=== PATIENT | female | born 1985 | race Caucasian/White ===

== ENCOUNTER → 2016-09-24 | Outpatient (REF) | payer OTHER | LOC: M LAB REF 16:51 | PROVIDERS: ATTEND Advanced Practice Midwife | DX: Z12.4 Encounter for screening for malignant neoplasm of cervix (principal); Z11.3 Encounter for screening for infections with a predominantly sexual mode of transmission | CPT/HCPCS: 87491; 87591; G0123 ==

== ENCOUNTER → 2017-01-10 | Outpatient (CLI) | payer OTHER ==
--- NOTE | 2017-01-10 16:04 | REP ---
Clinical: Abnormal thyroid function tests. Technique: Real time sears scale and color evaluation using linear and curved array transducers. Findings: The thyroid gland is diffusely heterogeneous without focal, discrete nodule, cyst or mass lesion. Right lobe measures 4.2 x 1.9 x 1.8 cm. Left lobe measures 4.4 x 1.7 x 1.9 cm. Isthmus measures 3.1 mm in width. Impression: Heterogeneous thyroid gland. No discrete abnormality. Signed by Chacorta Pope MD 01/10/2017 03:56 P
== END ==
LOC: M LRY 14:02
PROVIDERS: ATTEND Nurse Practitioner Family
DX: R94.6 Abnormal results of thyroid function studies (principal)

== ENCOUNTER → 2017-01-10 | Outpatient (CLI) | payer OTHER ==
[2017-01-10 18:16] LABS: ALBUMIN 3.8 GM/DL (3.2-5.2); ALBUMIN/GLOBULIN RATIO 1.23 (1.00-1.93); ALKALINE PHOSPHATASE 60 U/L (45-117); ALT/SGPT 23 U/L (12-78); ANION GAP 10 MEQ/L (8-16); AST/SGOT 10 U/L (15-37); BILIRUBIN,TOTAL 0.2 MG/DL (0.2-1.0); BLOOD UREA NITROGEN 9 MG/DL (7-18); CALCIUM LEVEL 9.2 MG/DL (8.5-10.1); CARBON DIOXIDE LEVEL 25 MEQ/L (21-32); CHLORIDE LEVEL 109 MEQ/L (98-107); CREATININE FOR GFR 0.96 MG/DL (0.55-1.02); FREE T4 0.69 NG/DL (0.76-1.46); GLOMERULAR FILTRATION RATE > 60.0 (>60); GLUCOSE, FASTING 85 MG/DL (70-105); MAGNESIUM LEVEL 2.1 MG/DL (1.8-2.4); POTASSIUM SERUM 4.3 MEQ/L (3.5-5.1); SODIUM LEVEL 144 MEQ/L (136-145); TOTAL PROTEIN 6.9 GM/DL (6.4-8.2)
[2017-01-11 10:04] LABS: THYROID PEROXIDASE ANTIBODY > 1300.0 U/ML (<60.0)
== END ==
LOC: M LRY 13:55
PROVIDERS: ATTEND Physician Assistant
DX: G25.0 Essential tremor (principal); R94.6 Abnormal results of thyroid function studies

== ENCOUNTER → 2017-01-20 | Outpatient (REF) | payer OTHER | LOC: M SFHCLERA 14:38 | PROVIDERS: ATTEND Physician Assistant | DX: R07.9 Chest pain, unspecified (principal); Z53.9 Procedure and treatment not carried out, unspecified reason ==

== ENCOUNTER → 2017-01-20 | Outpatient (CLI) | payer OTHER ==
--- NOTE | 2017-01-20 15:00 | REP ---
Clinical: Chest pain . Comparison: 11/02/2015 . Technique: PA and lateral. Findings: The mediastinum and cardiac silhouette are normal. The lung mark are clear and without acute consolidation, effusion, or pneumothorax. The skeletal structures are intact and normal. Impression: 1. No acute cardiopulmonary process. Signed by Chacorta Pope MD 01/20/2017 02:51 P
== END ==
LOC: M LRY 14:38
PROVIDERS: ATTEND Physician Assistant
DX: R07.9 Chest pain, unspecified (principal)

== ENCOUNTER → 2017-06-01 | Outpatient (CLI) | payer OTHER | LOC: M LRY 13:26 | DX: M79.672 Pain in left foot (principal) | CPT/HCPCS: 73630 ==

== ENCOUNTER → 2017-06-20 | Outpatient (CLI) | payer OTHER ==
[2017-06-20 20:28] LABS: BASO # 0.1 10^3/uL (0.0-0.2); BASO % 1.5 % (0.0-1.0); HEMATOCRIT 39.3 % (36.0-47.0); IMMATURE GRANULOCYTE % 0.2 % (0-3.0); LYMPH # 1.4 10^3/uL (1.5-4.5); LYMPH % 24.2 % (24.0-44.0); MEAN CORPUSCULAR HEMOGLOBIN 30.2 pg (27.0-33.0); MEAN CORPUSCULAR HGB CONC 33.1 g/dl (32.0-36.5); MEAN CORPUSCULAR VOLUME 91.2 fl (80.0-96.0); MONO # 0.4 10^3/uL (0.0-0.8); MONO % 6.7 % (0.0-5.0); NEUTROPHILS % 67.4 % (36.0-66.0); PLATELET COUNT, AUTOMATED 296 10^3/uL (150-450); RED BLOOD COUNT 4.31 10^6/uL (4.00-5.40); RED CELL DISTRIBUTION WIDTH 11.9 % (11.5-14.5)
[2017-06-20 20:46] LABS: ALBUMIN 3.7 GM/DL (3.2-5.2); ALBUMIN/GLOBULIN RATIO 1.23 (1.00-1.93); ALKALINE PHOSPHATASE 52 U/L (45-117); ALT/SGPT 20 U/L (12-78); ANION GAP 6 MEQ/L (8-16); AST/SGOT 10 U/L (7-37); BILIRUBIN,TOTAL 0.3 MG/DL (0.2-1.0); BLOOD UREA NITROGEN 8 MG/DL (7-18); CALCIUM LEVEL 8.8 MG/DL (8.5-10.1); CARBON DIOXIDE LEVEL 27 MEQ/L (21-32); CHLORIDE LEVEL 110 MEQ/L (98-107); CREATININE FOR GFR 0.86 MG/DL (0.55-1.30); GLOMERULAR FILTRATION RATE > 60.0 (>60); GLUCOSE, FASTING 93 MG/DL (70-100); POTASSIUM SERUM 4.4 MEQ/L (3.5-5.1); SODIUM LEVEL 143 MEQ/L (136-145); TOTAL PROTEIN 6.7 GM/DL (6.4-8.2)
[2017-06-20 20:48] LABS: LITHIUM LEVEL 0.76 MEQ/L (0.60-1.20)
== END ==
LOC: M LRY 15:46
DX: F31.64 Bipolar disorder, current episode mixed, severe, with psychotic features (principal)
CPT/HCPCS: 80178

== ENCOUNTER → 2017-08-22 | Outpatient (REF) | payer OTHER | LOC: M SFHCLERA 13:54 | DX: J02.9 Acute pharyngitis, unspecified (principal) ==

== ENCOUNTER → 2017-11-18 | Outpatient (REF) | payer OTHER ==
[2017-11-18 19:13] LABS: IRON (FE) 74 UG/DL (50-170)
[2017-11-18 19:13] LABS: BASO # 0.1 10^3/uL (0.0-0.2); BASO % 0.7 % (0.0-1.0); FERRITIN 10 NG/ML (8-252); HEMATOCRIT 41.8 % (36.0-47.0); HEMOGLOBIN 13.7 g/dl (12.0-15.5); IMMATURE GRANULOCYTE % 0.6 % (0-3.0); LYMPH # 1.5 10^3/uL (1.5-4.5); LYMPH % 21.6 % (24.0-44.0); MEAN CORPUSCULAR HEMOGLOBIN 30.6 pg (27.0-33.0); MEAN CORPUSCULAR HGB CONC 32.8 g/dl (32.0-36.5); MEAN CORPUSCULAR VOLUME 93.5 fl (80.0-96.0); MONO # 0.4 10^3/uL (0.0-0.8); MONO % 4.9 % (0.0-5.0); NEUTROPHILS # 5.2 10^3/uL (1.8-7.7); NEUTROPHILS % 72.2 % (36.0-66.0); PLATELET COUNT, AUTOMATED 325 10^3/uL (150-450); RED BLOOD COUNT 4.47 10^6/uL (4.00-5.40); RED CELL DISTRIBUTION WIDTH 12.2 % (11.5-14.5); THYROID STIMULATING HORMONE 0.532 uIU/ML (0.358-3.740); WHITE BLOOD COUNT 7.1 10^3/uL (4.0-10.0)
[2017-11-21 00:20] LABS: TISSUE TRANSGLUTAMINASE IgA <2 U/mL (0-3)
== END ==
LOC: M LAB REF 17:58
DX: K58.2 Mixed irritable bowel syndrome (principal)

== ENCOUNTER → 2018-04-26 | Outpatient (REF) | payer OTHER | LOC: M SFHCLERA 11:14 | PROVIDERS: ATTEND Physician Assistant | DX: R53.81 Other malaise (principal) ==

== ENCOUNTER → 2018-05-19 | Outpatient (CLI) | payer OTHER ==
[2018-05-19 21:11] LABS: BASO # 0.1 10^3/uL (0.0-0.2); BASO % 0.8 % (0.0-1.0); HEMOGLOBIN 13.9 g/dl (12.0-15.5); LYMPH # 1.8 10^3/uL (1.5-4.5); LYMPH % 22.4 % (24.0-44.0); MEAN CORPUSCULAR HEMOGLOBIN 30.2 pg (27.0-33.0); MEAN CORPUSCULAR HGB CONC 33.1 g/dl (32.0-36.5); MEAN CORPUSCULAR VOLUME 91.3 fl (80.0-96.0); MONO # 0.5 10^3/uL (0.0-0.8); MONO % 6.5 % (0.0-5.0); NEUTROPHILS # 5.6 10^3/uL (1.8-7.7); NEUTROPHILS % 69.8 % (36.0-66.0); PLATELET COUNT, AUTOMATED 325 10^3/uL (150-450)
[2018-05-19 21:26] LABS: ALBUMIN 3.9 GM/DL (3.2-5.2); ALT/SGPT 23 U/L (12-78); BILIRUBIN,TOTAL 0.4 MG/DL (0.2-1.0); BLOOD UREA NITROGEN 8 MG/DL (7-18); CALCIUM LEVEL 9.1 MG/DL (8.5-10.1); CARBON DIOXIDE LEVEL 29 MEQ/L (21-32); CHLORIDE LEVEL 105 MEQ/L (98-107); CHOLESTEROL LEVEL 179 MG/DL (<200); CHOLESTEROL RISK RATIO 3.977 (<5); CREATININE FOR GFR 0.84 MG/DL (0.55-1.30); GLOMERULAR FILTRATION RATE > 60.0 (>60); GLUCOSE, FASTING 105 MG/DL (70-100); HDL CHOLESTEROL 45 MG/DL (>40); LDL CHOLESTEROL 100 MG/DL (<100); LITHIUM LEVEL 0.38 MEQ/L (0.60-1.20); NON-HDL-C 134 MG/DL; POTASSIUM SERUM 3.9 MEQ/L (3.5-5.1); SODIUM LEVEL 142 MEQ/L (136-145); TOTAL PROTEIN 6.9 GM/DL (6.4-8.2); TRIGLYCERIDES LEVEL 168 MG/DL (<150)
[2018-05-20 19:27] LABS: HEMOGLOBIN A1c 4.6 %
== END ==
LOC: M LRY 17:22
PROVIDERS: ATTEND Physician Assistant
DX: F31.78 Bipolar disorder, in full remission, most recent episode mixed (principal)

== ENCOUNTER → 2018-06-16 | Outpatient (REF) | payer OTHER | LOC: M SFHCLERA 17:01 | PROVIDERS: ATTEND Nurse Practitioner Family | DX: J02.9 Acute pharyngitis, unspecified (principal) ==

== ENCOUNTER → 2019-02-13 | Outpatient (REF) | payer OTHER ==
[2019-02-13 17:40] LABS: BASO % 0.4 % (0.0-1.0); HEMATOCRIT 41.5 % (36.0-47.0); HEMOGLOBIN 13.6 g/dl (12.0-15.5); LYMPH # 1.3 10^3/uL (1.5-5.0); LYMPH % 18.9 % (24.0-44.0); MEAN CORPUSCULAR HEMOGLOBIN 30.8 pg (27.0-33.0); MEAN CORPUSCULAR HGB CONC 32.8 g/dl (32.0-36.5); MEAN CORPUSCULAR VOLUME 93.9 fl (80.0-96.0); MONO # 0.4 10^3/uL (0.0-0.8); MONO % 5.6 % (0.0-5.0); NEUTROPHILS # 5.2 10^3/uL (1.5-8.5); NEUTROPHILS % 74.7 % (36.0-66.0); PLATELET COUNT, AUTOMATED 243 10^3/uL (150-450); RED BLOOD COUNT 4.42 10^6/uL (4.00-5.40); WHITE BLOOD COUNT 6.9 10^3/uL (4.0-10.0)
[2019-02-13 17:42] LABS: ALBUMIN 3.8 GM/DL (3.2-5.2); ALT/SGPT 22 U/L (12-78); BILIRUBIN,TOTAL 0.5 MG/DL (0.2-1.0); BLOOD UREA NITROGEN 9 MG/DL (7-18); CALCIUM LEVEL 9.3 MG/DL (8.5-10.1); CARBON DIOXIDE LEVEL 27 MEQ/L (21-32); CHLORIDE LEVEL 109 MEQ/L (98-107); CHOLESTEROL LEVEL 169 MG/DL (<200); CREATININE FOR GFR 0.86 MG/DL (0.55-1.30); FREE T4 1.34 NG/DL (0.76-1.46); GLOMERULAR FILTRATION RATE > 60.0 (>60); GLUCOSE, FASTING 88 MG/DL (70-100); HDL CHOLESTEROL 43 MG/DL (>40); LDL CHOLESTEROL 106 MG/DL (<100); NON-HDL-C 126 MG/DL; POTASSIUM SERUM 4.3 MEQ/L (3.5-5.1); SODIUM LEVEL 142 MEQ/L (136-145); THYROID STIMULATING HORMONE 0.026 uIU/ML (0.358-3.740); TRIGLYCERIDES LEVEL 98 MG/DL (<150)
[2019-02-13 18:10] LABS: HEMOGLOBIN A1c 4.7 %
== END ==
LOC: M LAB REF 16:44
PROVIDERS: ATTEND Nurse Practitioner Family
DX: Z13.9 Encounter for screening, unspecified (principal)

== ENCOUNTER → 2019-04-19 | Outpatient (CLI) | payer OTHER ==
[2019-04-19 19:46] LABS: HCG, SERUM QUALITATIVE NEGATIVE (NEGATIVE)
== END ==
LOC: M LAB 17:55
PROVIDERS: ATTEND Internal Medicine Endocrinology, Diabetes & Metabolism
DX: E05.00 Thyrotoxicosis with diffuse goiter without thyrotoxic crisis or storm (principal)

== ENCOUNTER → 2019-04-20 | Outpatient (CLI) | payer OTHER | LOC: M RAD 09:50 | PROVIDERS: ATTEND Internal Medicine Endocrinology, Diabetes & Metabolism | DX: E05.00 Thyrotoxicosis with diffuse goiter without thyrotoxic crisis or storm (principal) | CPT/HCPCS: 79005; A9517 ==

== ENCOUNTER → 2019-05-08 | Outpatient (CLI) | payer OTHER ==
[2019-05-08 20:44] LABS: FREE T4 2.83 NG/DL (0.76-1.46); THYROID STIMULATING HORMONE < 0.005 uIU/ML (0.358-3.740)
== END ==
LOC: M LRY 16:40
PROVIDERS: ATTEND Internal Medicine Endocrinology, Diabetes & Metabolism
DX: E05.00 Thyrotoxicosis with diffuse goiter without thyrotoxic crisis or storm (principal)

== ENCOUNTER → 2019-06-15 | Outpatient (CLI) | payer OTHER ==
[2019-06-15 20:44] LABS: FREE T4 0.56 NG/DL (0.76-1.46); THYROID STIMULATING HORMONE 9.1 uIU/ML (0.358-3.740)
== END ==
LOC: M LRY 16:01
PROVIDERS: ATTEND Internal Medicine Endocrinology, Diabetes & Metabolism
DX: E05.00 Thyrotoxicosis with diffuse goiter without thyrotoxic crisis or storm (principal)

== ENCOUNTER → 2019-07-08 | Outpatient (REF) | payer OTHER, MEDICAID ==
[2019-07-08 13:24] LABS: BASO # 0.1 10^3/uL (0.0-0.2); HEMATOCRIT 43.7 % (36.0-47.0); HEMOGLOBIN 14.4 g/dl (12.0-15.5); LYMPH % 31.7 % (24.0-44.0); MEAN CORPUSCULAR HEMOGLOBIN 30.1 pg (27.0-33.0); MEAN CORPUSCULAR VOLUME 91.4 fl (80.0-96.0); MONO # 0.4 10^3/uL (0.0-0.8); MONO % 6.7 % (0.0-5.0); NEUTROPHILS # 3.7 10^3/uL (1.5-8.5); NEUTROPHILS % 60.1 % (36.0-66.0); PLATELET COUNT, AUTOMATED 264 10^3/uL (150-450); RED BLOOD COUNT 4.78 10^6/uL (4.00-5.40); WHITE BLOOD COUNT 6.2 10^3/uL (4.0-10.0)
[2019-07-08 13:51] LABS: ALBUMIN 4.2 GM/DL (3.2-5.2); ALT/SGPT 24 U/L (12-78); BILIRUBIN,TOTAL 0.5 MG/DL (0.2-1.0); BLOOD UREA NITROGEN 12 MG/DL (7-18); CALCIUM LEVEL 9.7 MG/DL (8.5-10.1); CARBON DIOXIDE LEVEL 27 MEQ/L (21-32); CHLORIDE LEVEL 108 MEQ/L (98-107); CREATININE FOR GFR 1.02 MG/DL (0.55-1.30); GLOMERULAR FILTRATION RATE > 60.0 (>60); GLUCOSE, FASTING 86 MG/DL (70-100); POTASSIUM SERUM 4.3 MEQ/L (3.5-5.1); SODIUM LEVEL 139 MEQ/L (136-145); TOTAL PROTEIN 7.5 GM/DL (6.4-8.2)
== END ==
LOC: M LAB REF 12:28
PROVIDERS: ATTEND Nurse Practitioner Family
DX: L70.0 Acne vulgaris (principal); Z13.9 Encounter for screening, unspecified

== ENCOUNTER → 2019-08-18 | Outpatient (CLI) | payer OTHER, MEDICAID ==
[2019-08-18 17:46] LABS: FREE T4 1.58 NG/DL (0.76-1.46); THYROID STIMULATING HORMONE 0.041 uIU/ML (0.358-3.740)
== END ==
LOC: M LRY 13:39
PROVIDERS: ATTEND Nurse Practitioner Family
DX: E89.0 Postprocedural hypothyroidism (principal)

== ENCOUNTER → 2019-10-21 | Outpatient (CLI) | payer OTHER, MEDICAID ==
[~2019-10-21] MED LIST: KURV0.15 PO; LITH300C PO; MIRA3350 PO; SAPH1SUB9 SL; SPIR50TA4 PO
[2019-10-21 18:36] LABS: BASO % 0.6 % (0.0-1.0); HEMATOCRIT 41.2 % (36.0-47.0); HEMOGLOBIN 14.1 g/dl (12.0-15.5); LYMPH # 1.4 10^3/uL (1.5-5.0); LYMPH % 21.2 % (24.0-44.0); MEAN CORPUSCULAR HEMOGLOBIN 31.6 pg (27.0-33.0); MEAN CORPUSCULAR HGB CONC 34.2 g/dl (32.0-36.5); MEAN CORPUSCULAR VOLUME 92.4 fl (80.0-96.0); MONO # 0.4 10^3/uL (0.0-0.8); MONO % 5.5 % (0.0-5.0); NEUTROPHILS # 4.7 10^3/uL (1.5-8.5); NEUTROPHILS % 72.1 % (36.0-66.0); PLATELET COUNT, AUTOMATED 291 10^3/uL (150-450); RED BLOOD COUNT 4.46 10^6/uL (4.00-5.40); WHITE BLOOD COUNT 6.5 10^3/uL (4.0-10.0)
[2019-10-21 18:48] LABS: ALBUMIN 3.7 GM/DL (3.2-5.2); ALT/SGPT 33 U/L (12-78); BILIRUBIN,TOTAL 0.6 MG/DL (0.2-1.0); BLOOD UREA NITROGEN 10 MG/DL (7-18); CARBON DIOXIDE LEVEL 26 MEQ/L (21-32); CHLORIDE LEVEL 109 MEQ/L (98-107); CHOLESTEROL LEVEL 169 MG/DL (<200); CREATININE FOR GFR 0.88 MG/DL (0.55-1.30); GLOMERULAR FILTRATION RATE > 60.0 (>60); GLUCOSE, FASTING 84 MG/DL (70-100); HDL CHOLESTEROL 44 MG/DL (>40); LDL CHOLESTEROL 102 MG/DL (<100); LITHIUM LEVEL 0.61 MEQ/L (0.60-1.20); NON-HDL-C 125 MG/DL; POTASSIUM SERUM 4.4 MEQ/L (3.5-5.1); SODIUM LEVEL 140 MEQ/L (136-145); TOTAL PROTEIN 6.7 GM/DL (6.4-8.2); TRIGLYCERIDES LEVEL 113 MG/DL (<150)
[2019-10-21 20:12] LABS: HEMOGLOBIN A1c 4.9 %
== END ==
LOC: M LRY 15:17
PROVIDERS: ATTEND Physician Assistant
DX: F31.9 Bipolar disorder, unspecified (principal)

== ENCOUNTER → 2019-10-21 | Outpatient (CLI) | payer OTHER, MEDICAID ==
[2019-10-21 18:45] LABS: FREE T4 1.33 NG/DL (0.76-1.46); THYROID STIMULATING HORMONE 0.137 uIU/ML (0.358-3.740)
== END ==
LOC: M LRY 15:14
PROVIDERS: ATTEND Nurse Practitioner Family
DX: E89.0 Postprocedural hypothyroidism (principal)

== ENCOUNTER → 2019-12-31 | Outpatient (CLI) | payer OTHER, MEDICAID ==
[2020-01-01 20:09] LABS: FREE T4 1.28 NG/DL (0.76-1.46); THYROID STIMULATING HORMONE 0.118 uIU/ML (0.358-3.740)
== END ==
LOC: M LRY 15:24
PROVIDERS: ATTEND Nurse Practitioner Family
DX: E89.0 Postprocedural hypothyroidism (principal)

== ENCOUNTER → 2020-03-30 | Outpatient (CLI) | payer OTHER ==
[2020-03-30 16:53] LABS: FREE T4 1.14 NG/DL (0.76-1.46); THYROID STIMULATING HORMONE 2.49 uIU/ML (0.358-3.740)
== END ==
LOC: M WUC 13:41
PROVIDERS: ATTEND Nurse Practitioner Family
DX: E89.0 Postprocedural hypothyroidism (principal)

== ENCOUNTER 2020-05-21 16:25 | Emergency (ER) | payer OTHER ==
[~2020-05-21] VITALS: Ht 165.1 cm; Wt 62.5 kg
[2020-05-21] MEDS ORDERED: KURV0.15 PO (16:46)
[2020-05-21] MEDS ORDERED: SPIR50TA4 PO (16:46)
[2020-05-21] MEDS ORDERED: LITH300C PO (16:46)
[2020-05-21] MEDS ORDERED: SAPH1SUB9 SL (16:46)
--- OUTSIDE RECORDS SUMMARY | 2020-05-21 17:07 | CCD | Continuity of Care Document ---
Author Author Amy KNOWLES [facility] Organization Unknown Address [facility] [address] [place] [address] Phone [phone] Care Team Providers Care Fancy Wire Drawer Name Role Phone [facility] AUTM AUTM Unavailable Problems Active Problems Provider Date Mixed bipolar affective disorder, in full remission Jsa Patricio LCSW Onset: 11/20/2017 Family coping: potential for growth Jas Patricio LCSW Ons et: 04/18/2018 Taking medication Zach Porter PA-C Onset: 06/09/2019 Bipolar disorder Zach Porter PA-C Onset: 06/09/2019 Social History Type Date Description Comments Sex Unknown Allergies, Adverse Reactions, Alerts Active Allergies Reaction Severity Comments Date NKDA 02/23/2019 Environmental SNEEZING, RUNNY NOSE 2016 Vinegar Nausea and Vomiting Moderate 09/04/19 17 Tobacco Smoke Anaphylaxis Severe 09/03/2016 Medications Active Medications SIG Qnty Indications Ordering Provide r Date Saphris 2.5mg Tablets Sub place 1 under the tongue every day at bedtime . do not exceed 1 per 24 hours 30tabs F31.78 Brady Canada MD 11/26/2017 [place] Carbonate 300mg Capsules 2 caps by mouth at bedtime 60caps F31.81 Brady Canada MD 7 [place] 0.15-30mg-mcg Tablets Unknown Claritin 10mg Tablets Unknown Metoprolol Tartrate 25mg Tablets Take 1 Tablet By Mouth Twice Daily . DO Not Exceed 2 Per 24 Hours Unknown Immunizations Description No Information Available Vital Signs Date Vital Result Comment 02/23/2019 1:58pm BP Systolic Sitting 125 mmHg BP Diastolic Sitting 81 mmHg Heart Rate 84 /min Body Temperature 98.9 F Oral Respiratory Rate 16 /min O2 % BldC Oximetry 100 % Weight 139.50 lb Weight 63.277 kg Height 65 inches 5'5" BMI (Body Mass Index) 23.2 kg/m2 BSA (Body Surface Area) 1.70 m2 05/14/2018 3:34pm BP Systolic Sitting 124 mmHg BP Diastolic Sitting 80 mmHg Heart Rate 90 /min Body Temperature 98.3 F Oral Respiratory Rate 16 /min O2 % BldC Oximetry 98 % Weight 150.38 lb Weight 68.210 kg Height 65 inches 5'5" BMI (Body Mass Index) 25.0 kg/m2 BSA (Body Surface Area) 1.75 m2 Results Description No Information Available Procedures Description No Information Available Medical Devices Description No Information Available Encounters Description No Information Available Assessments Date Code Description Provider 05/02/2020 F31.9 Bipolar disorder, unspecified Th ea Jitendra, [facility] 04/22/2020 F31.9 Bipolar disorder, unspecified Th ea Jitendra, [facility] 04/08/2020 F31.9 Bipolar disorder, unspecified Th ea Jitendra, [facility] 04/08/2020 F31.9 Bipolar disorder, unspecified Ca olegario Porter PA-C 03/25/2020 F31.9 Bipolar disorder, unspecified Th ea Jitendra, [facility] 03/25/2020 Z79.899 Other jet handler (current) drug t herapy Iesha Jitendra, [facility] 03/11/2020 F31.9 Bipolar disorder, unspecified Th ea Jitendra, [facility] 03/11/2020 Z79.899 Other fci (current) drug t herapy Iesha Jitendra, [facility] 02/26/2020 F31.9 Bipolar disorder, unspecified Th ea Jitendra, [facility] 02/26/2020 Z79.899 Other jet handler (current) drug t herapy Iesha Jitendra, [facility] 02/05/2020 F31.9 Bipolar disorder, unspecified Th ea Jitendra, [facility] 02/05/2020 Z79.899 Other fci (current) drug t herapy Iesha Jitendra, [facility] 01/22/2020 F31.9 Bipolar disorder, unspecified Th ea Jitendra, [facility] 01/22/2020 Z79.899 Other fci (current) drug t herapy Iesha Jitendra, [facility] 01/07/2020 F31.9 Bipolar disorder, unspecified Th ea Jitendra, [facility] 01/07/2020 F31.9 Bipolar disorder, unspecified Ca olegario Porter PA-C 01/07/2020 Z79.899 Other jet handler (current) drug t herapy Iesha Jitendra, [facility] 01/07/2020 Z79.899 Other jet handler (current) drug t herapy Zach Porter PA-C 12/24/2019 F31.9 Bipolar disorder, unspecified Th ea Jitendra, [facility] 12/24/2019 Z79.899 Other fci (current) drug t herapy Iesha Jitendra, [facility] 12/10/2019 F31.9 Bipolar disorder, unspecified Th ea Jitendra, [facility] 12/10/2019 Z79.899 Other jet handler (current) drug t herapy Iesha Jitendra, [facility] 11/26/2019 F31.9 Bipolar disorder, unspecified Th ea Jitendra, [facility] 11/26/2019 Z79.899 Other fci (current) drug t herapy BRENDAN Wells Plan of Treatment Future Appointment(s):* 07/08/2020 2:00 pm - BRENDAN Wells at [facility] * 06/24/2020 2:00 pm - BRENDAN Wells at [facility] * 06/06/2020 12:40 pm - Zach Porter PA-C at [facility] * 06/06/2020 12:00 pm - BRENDAN Wells at [facility] Functional Status Description No Information Available Mental Status Description No Information Available Referrals Description No Information Available
--- OUTSIDE RECORDS SUMMARY | 2020-05-21 17:07 | CCD ---
Continuity of Care Document (CCD) Created on: 04/08/2020 Amy Hammer External Reference #: [id number] : [id number] Sex: Female Author Author Amy PORTER PA-C Organization Unknown Address [facility] [address] [place] [address] Phone [phone] Care Team Providers Care Valve Steamer Name Role Phone [facility] AUTM AUTM Unavailable Problems Active Problems Provider Date Mixed bipolar affective disorder, in full remission Jas Patricio LCSW Onset: 11/20/2017 Family coping: potential [...] hours 30tabs F31.78 Brady Canada MD 11/26/2017 [place] Carbonate 300mg Capsules 2 caps by mouth [...] BSA (Body Surface Area) 1.75 m2 Results Test Acquired Date Facility Test Result H/L Range Note Hgba1c 10/21/2019 [facility] Hemoglobin A1c 4.9 % Normal 1 Estimated Average Glucose 94 mg/dL Normal 60-110 Cve Panel 10/21/2019 [facility] Triglycerides Level 113 mg/dL Normal <150 Cholesterol Level 169 mg/dL Normal <200 HDL Cholesterol 44 mg/dL Normal >40 LDL Cholesterol 102 mg/dL High <100 Non-HDL-C 125 mg/dL Normal Cholesterol Risk Ratio 3.840 Normal <5 Laboratory test finding 10/21/2019 [facility] [place] Level 0.61 mEq/L Normal 0.60-1.20 Thyroid Stimulating Hormone 0.140 uIU/ML Low 0.358-3.740 Comprehensive Metabolic Profil 10/21/2019 [facility] Glucose, Fasting 84 mg/dL Normal 70-100 Blood Urea Nitrogen 10 mg/dL Normal 7-18 Creatinine For GFR 0.88 mg/dL Normal 0.55-1.30 Glomerular Filtration Rate > 60.0 Normal >60 2 Sodium Level 140 mEq/L Normal 136-145 Potassium Serum 4.4 mEq/L Normal 3.5-5.1 Chloride Level 109 mEq/L High 98-107 Carbon Dioxide Level 26 mEq/L Normal 21-32 Anion Gap 5 mEq/L Low 8-16 Calcium Level 9.0 mg/dL Normal 8.5-10.1 Ast/Sgot 15 U/L Normal 7-37 Alt/SGPT 33 U/L Normal 12-78 Alkaline Phosphatase 50 U/L Normal 45-117 Bilirubin,Total 0.6 mg/dL Normal 0.2-1.0 Total Protein 6.7 GM/DL Normal 6.4-8.2 Albumin 3.7 GM/DL Normal 3.2-5.2 Albumin/Globulin Ratio 1.2 Normal 1.2-2.2 1 REFERENCE RANGES: 4.5-5.6% NORMAL 5.7-6.4% SUGGESTS IMPAIRED GLUCOSE META BOLISM >= 6.5% ABNORMAL 2 Units are mL/min/1.73 m2 Chronic Kidney Disease Staging per NKF: Stage I & II GFR >=60 Normal to Mildly Decreased Stage III GFR 30-59 Moderately Decreased Stage IV GFR 15-29 Severely Decreased Stage V GFR <15 Very Little GFR Left ESRD GFR <15 on [employer]OMER [employer]OV[employer] SUPERVISOR Procedures Description No Information Available Medical Devices Description No Information Available Encounters Type Date Location Provider Dx Diagnosis Office Visit 04/08/2020 1:00p [facility] Zach Porter PA-C F31.9 Bipolar disorder, unspecified Assessments Date Code Description Provider 04/08/2020 F31.9 Bipolar disorder, unspecified Brandie Porter PA-C 03/25/2020 F31.9 Bipolar disorder, unspecified Th ea Jitendra, [facility] 03/25/2020 Z79.899 Other m[facility] (current) drug t herapy Iesha Jitendra, [facility] 03/11/2020 F31.9 Bipolar disorder, unspecified Th ea Jitendra, [facility] 03/11/2020 Z79.899 Other mcc (current) drug t herapy Iesha Jitendra, [facility] 02/26/2020 F31.9 Bipolar disorder, unspecified Th ea Jitendra, [facility] 02/26/2020 Z79.899 Other buttermilk drier operator (current) drug t herapy Iesha Jitendra, [facility] 02/05/2020 F31.9 Bipolar disorder, unspecified Th ea Jitendra, [facility] 02/05/2020 Z79.899 Other mcc (current) drug t herapy Iesha Jitendra, [facility] 01/22/2020 F31.9 Bipolar disorder, unspecified Th ea Jitendra, [facility] 01/22/2020 Z79.899 Other buttermilk drier operator (current) drug t herapy Iesha Jitendra, [facility] 01/07/2020 F31.9 Bipolar disorder, unspecified Th ea Jitendra, [facility] 01/07/2020 F31.9 Bipolar disorder, unspecified Ca olegario Porter PA-C 01/07/2020 Z79.899 Other buttermilk drier operator (current) drug t herapy Iesha Jitendra, [facility] 01/07/2020 Z79.899 Other mcc (current) drug t herapy Zach Porter PA-C 12/24/2019 F31.9 Bipolar disorder, unspecified Th ea Jitendra, [facility] 12/24/2019 Z79.899 Other buttermilk drier operator (current) drug t herapy Iesha Jitendra, [facility] 12/10/2019 F31.9 Bipolar disorder, unspecified Th ea Jitendra, [facility] 12/10/2019 Z79.899 Other buttermilk drier operator (current) drug t herapy Iesha Jitendra, [facility] 11/26/2019 F31.9 Bipolar disorder, unspecified Th ea Jitendra, [facility] 11/26/2019 Z79.899 Other buttermilk drier operator (current) drug t herapy Iesha Jitendra, [facility] 11/09/2019 F31.9 Bipolar disorder, unspecified Th ea Jitendra, [facility] 11/09/2019 Z79.899 Other buttermilk drier operator (current) drug t herapy Iesha Jitendra, [facility] 10/26/2019 F31.9 Bipolar disorder, unspecified Th ea Jitendra, [facility] 10/26/2019 Z79.899 Other buttermilk drier operator (current) drug t herapy Iesha Jitendra, [facility] 10/15/2019 F31.9 Bipolar disorder, unspecified Th ea Jitendra, [facility] 10/15/2019 Z79.899 Other mcc (current) drug t herapy BRENDAN Wells Plan of Treatment Future Appointment(s):* 06/06/2020 1:40 pm - Zach Porter PA-C at [facility] * 04/22/2020 2:00 pm - BRENDAN Wells at [facility] Functional Status Description No Information Available Mental Status Description No Information Available Referrals Description No Information Available
--- OUTSIDE RECORDS SUMMARY | 2020-05-21 17:07 | CCD | Continuity of Care Document ---
Author Author Amy KNOWLES [facility] Organization Unknown Address [facility] [address] [place] [address] Phone [phone] Care Team Providers Care Tire Groover Name Role Phone [facility] AUTM AUTM Unavailable Problems Active Problems Provider [...] hours 30tabs F31.78 Brady Canada MD 11/26/2017 [facility] Carbonate 300mg Capsules 2 caps by mouth [...] Information Available Assessments Date Code Description Provider 04/08/2020 F31.9 Bipolar disorder, unspecified Th ea Jitendra, [facility] 04/08/2020 F31.9 Bipolar disorder, unspecified Brandie Porter PA-C 03/25/2020 F31.9 Bipolar disorder, unspecified Th ea Jitendra, [facility] 03/25/2020 Z79.899 Other termination clerk (current) drug t herapy Iesha Jitendra, [facility] 03/11/2020 F31.9 Bipolar disorder, unspecified Th ea Jitendra, [facility] 03/11/2020 Z79.899 Other skilled nursing (current) drug t herapy Iesha Jitendra, [facility] 02/26/2020 F31.9 Bipolar disorder, unspecified Th ea Jitendra, [facility] 02/26/2020 Z79.899 Other skilled nursing (current) drug t herapy Iesha Jitendra, [facility] 02/05/2020 F31.9 Bipolar disorder, unspecified Th ea Jitendra, [facility] 02/05/2020 Z79.899 Other skilled nursing (current) drug t herapy Iesha Jitendra, [facility] 01/22/2020 F31.9 Bipolar disorder, unspecified Th ea Jitendra, [facility] 01/22/2020 Z79.899 Other skilled nursing (current) drug t herapy Iesha Jitendra, [facility] 01/07/2020 F31.9 Bipolar disorder, unspecified Th ea Jitendra, [facility] 01/07/2020 F31.9 Bipolar disorder, unspecified Ca olegario Porter PA-C 01/07/2020 Z79.899 Other skilled nursing (current) drug t herapy Iesha Jitendra, [facility] 01/07/2020 Z79.899 Other skilled nursing (current) drug t herapy Zach Porter PA-C 12/24/2019 F31.9 Bipolar disorder, unspecified Th ea Jitendra, [facility] 12/24/2019 Z79.899 Other skilled nursing (current) drug t herapy Iesha Jitendra, [facility] 12/10/2019 F31.9 Bipolar disorder, unspecified Th ea Jitendra, [facility] 12/10/2019 Z79.899 Other skilled nursing (current) drug t herapy Iesha Jitendra, [facility] 11/26/2019 F31.9 Bipolar disorder, unspecified Th ea Jitendra, [facility] 11/26/2019 Z79.899 Other termination clerk (current) drug t herapy Iesha Jitendra, [facility] 11/09/2019 F31.9 Bipolar disorder, unspecified Th ea Jitendra, [facility] 11/09/2019 Z79.899 Other skilled nursing (current) drug t herapy Iesha Jitendra, [facility] 10/26/2019 F31.9 Bipolar disorder, unspecified Th ea Jitendra, [facility] 10/26/2019 Z79.899 Other skilled nursing (current) drug t herapy BRENDAN Wells Plan of Treatment Future Appointment(s):* 06/06/2020 12:40 pm - Zach Porter PA-C at [facility] * 06/06/2020 12:00 pm - BRENDAN Wells at [facility] * 05/20/2020 2:00 pm - BRENDAN Wells at [facility] * 05/02/2020 2:00 pm - BRENDAN Wells at [facility] Functional Status Description No Information Available Mental Status Description No Information Available Referrals Description No Information Available
--- OUTSIDE RECORDS SUMMARY | 2020-05-21 17:07 | CCD | Continuity of Care Document ---
Author Author Amy KNOWLES [facility] Organization Unknown Address [facility] [address] [place] [address] Phone [phone] Care Team Providers Care Head Of Ict Name Role Phone [facility] AUTM AUTM Unavailable Problems Active Problems Provider [...] hours 30tabs F31.78 Brady Canada MD 11/26/2017 [place] Carbonate 300mg Capsules 2 caps by mouth [...] Test Result H/L Range Note Hgba1c 10/21/2019 [facility] Hemoglobin A1c 4.9 % Normal 1 Estimated Average Glucose 94 mg/dL Normal 60-110 Cve Panel 10/21/2019 [facility] Triglycerides Level 113 mg/dL Normal <150 Cholesterol Level 169 mg/dL Normal <200 HDL Cholesterol 44 mg/dL Normal >40 LDL Cholesterol 102 mg/dL High <100 Non-HDL-C 125 mg/dL Normal Cholesterol Risk Ratio 3.840 Normal <5 Laboratory test finding 10/21/2019 [facility] Level 0.61 mEq/L Normal 0.60-1.20 Thyroid Stimulating Hormone 0.140 uIU/ML Low 0.358-3.740 Comprehensive Metabolic Profil 10/21/2019 [facility] Glucose, Fasting 84 mg/dL Normal [...] Little GFR Left ESRD GFR <15 on SUPERVISOR GROWER Procedures Description No Information Available Medical Devices Description No Information Available Encounters Type Date Location Provider Dx Diagnosis Office Visit 04/08/2020 1:00p [facility] Zach Porter PA-C F31.9 Bipolar disorder, unspecified Assessments Date Code Description Provider 04/08/2020 F31.9 Bipolar disorder, unspecified Brandie Porter PA-C 03/25/2020 F31.9 Bipolar disorder, unspecified Th ea Jitendra, [facility] 03/25/2020 Z79.899 Other usp (current) drug t herapy Iesha Jitendra, [facility] 03/11/2020 F31.9 Bipolar disorder, unspecified Th ea Jitendra, [facility] 03/11/2020 Z79.899 Other usp (current) drug t herapy Iesha Jitendra, [facility] 02/26/2020 F31.9 Bipolar disorder, unspecified Th ea Jitendra, [facility] 02/26/2020 Z79.899 Other wood strip block floor installer (current) drug t herapy Iesha Jitendra, [facility] 02/05/2020 F31.9 Bipolar disorder, unspecified Th ea Jitendra, [facility] 02/05/2020 Z79.899 Other usp (current) drug t herapy Iesha Jitendra, [facility] 01/22/2020 F31.9 Bipolar disorder, unspecified Th ea Jitendra, [facility] 01/22/2020 Z79.899 Other wood strip block floor installer (current) drug t herapy Iesha Jitendra, [facility] 01/07/2020 F31.9 Bipolar disorder, unspecified Th ea Jitendra, [facility] 01/07/2020 F31.9 Bipolar disorder, unspecified Ca olegario Porter PA-C 01/07/2020 Z79.899 Other wood strip block floor installer (current) drug t herapy Iesha Jitendra, [facility] 01/07/2020 Z79.899 Other usp (current) drug t herapy Zach Porter PA-C 12/24/2019 F31.9 Bipolar disorder, unspecified Th ea Jitendra, [facility] 12/24/2019 Z79.899 Other wood strip block floor installer (current) drug t herapy Iesha Jitendra, [facility] 12/10/2019 F31.9 Bipolar disorder, unspecified Th ea Jitendra, [facility] 12/10/2019 Z79.899 Other wood strip block floor installer (current) drug t herapy Iesha Jitendra, [facility] 11/26/2019 F31.9 Bipolar disorder, unspecified Th ea Jitendra, [facility] 11/26/2019 Z79.899 Other wood strip block floor installer (current) drug t herapy Iesha Jitendra, [facility] 11/09/2019 F31.9 Bipolar disorder, unspecified Th ea Jitendra, [facility] 11/09/2019 Z79.899 Other wood strip block floor installer (current) drug t herapy Iesha Jitendra, [facility] 10/26/2019 F31.9 Bipolar disorder, unspecified Th ea Jitendra, [facility] 10/26/2019 Z79.899 Other wood strip block floor installer (current) drug t herapy Iesha Jitendra, [facility] 10/15/2019 F31.9 Bipolar disorder, unspecified Th ea Jitendra, [facility] 10/15/2019 Z79.899 Other usp (current) drug t herapy BRENDAN Wells Plan of Treatment Future Appointment(s):* 05/20/2020 2:00 pm - BRENDAN Wells at [facility] * 05/02/2020 2:00 pm - BRENDAN Wells at [facility] * 06/06/2020 1:40 pm - Zach Porter PA-C at [facility] * 04/22/2020 2:00 pm - BRENDAN Wells at [facility] Functional Status Description No Information Available Mental Status Description No Information Available Referrals Description No Information Available
--- OUTSIDE RECORDS SUMMARY | 2020-05-21 17:07 | CCD ---
Author Author [facility] Organization [facility] Address Unknown Phone Unavailable Care Team Providers Care Clamper Name Role Phone Sharmin Montano Unavailable PROBLEMS Type Condition ICD9-CM Code LZS38-AT Code Onset Dates Condition S tatus SNOMED Code Notes Problem Schizoaffective disorder 295.70 Active 1592140 3 Problem BMI 26.0-26.9,adult V85.22 Active 120868957 Problem Anxiety 300.00 Active 69321422 Problem Eustachian tube dysfunction 381.81 Active 5671 3002 Problem Vertigo 780.4 Active 220119446 Problem Allergic rhinitis, unspecified seasonality, unspecifie d trigger J30.9 Active 56632839 Problem Acne 706.1 Active 89577054 Problem Atopic dermatitis, unspecified type L20.9 Acti ve 48620532 Problem Depression 311 Active 031081864 Problem Allergic rhinitis 477.9 Active 17974530 Problem Eczema 692.9 Active 22231263 Problem Abnormal laboratory test result R89.9 Active 146012418 Problem Abnormal laboratory test R89.9 Active 2374224 00 ALLERGIES Allergen (clinical drug ingredient) Drug/Non Drug Allergy do cumented on EMR Reaction Allergy Type Onset Date Status tobacco and cigarette smoke throat swelling Non Drug Aller gy Active environmental watery eyes Non Drug Allergy Acti ve ENCOUNTERS from 1985 to 2020-04-18 Encounter Location Date Provider Diagnosis [facility] [address] [address] Apr, Sharmin Montano Inflammatory acne L70.8 IMMUNIZATIONS Vaccine Route Administration Date Status Influenza (6mo & up) Fluzone Unknown Mar 20, 2017 Oth ers Influenza (6mo & up) Fluzone Unknown August 24, 2014 Ref used SOCIAL HISTORY Tobacco Use: Social History Observation Description Date Details (start date - stop date) Never Smoker Sex Assigned At : Social History Observation Description Sex Assigned At Unknown Tobacco Use: Question Answer Notes Are you a: never smoker REASON FOR REFERRAL No Information VITAL SIGNS No information MEDICATIONS Medication SIG (Take, Route, Frequency, Duration) Notes Start Da te End Date Status [place] Carbonate 300 mg 2 tabs before bedtime Active Mucinex DM 30-600 MG 1 tablet as needed Orally every 12 hrs for 10 day(s) Mar, Not-Taking Saphris as directed oral before bedtime Active PredniSONE Active Spironolactone 50 MG 1 tablet Orally Twice daily for 30 days Mar, Active Erythromycin 2 % APPLY TOPICALLY TO FACE DAILY External Active Hydrocortisone 1 % 1 application to affected ar ea Externally Twice a day for 14 day(s) Mar, Not-Taking Tretinoin 0.025 % 1 application in the evening to face Externall y Once a day Active LaMICtal ODT 25 MG as directed Orally Not-Taking Doxycycline Monohydrate 50 MG 1 capsule orally Daily Active Flonase 50 MCG/ACT 1 spray in each nostril Nasally Twice a day f or 30 day(s) Mar, Not-Taking Kurvelo 0.15-30 MG-MCG TAKE 1 TABLET BY MOUTH ONCE DAILY Oral for 28 Active Sudafed 30 MG 1 tablet as needed Orally every 6 hrs for 5 day(s) Mar, Not-Taking PROCEDURES No Information RESULTS No Results REASON FOR VISIT No Information MEDICAL (GENERAL) HISTORY Type Description Date Medical History seasonal allergies Medical History schizoaffective disorder-followed by Dr. [place] Medical History anxiety Medical History acne Medical History eczema Medical History hypoglycemia Surgical History Removal of cyst around left eye lid Goals Section No Information Health Concerns No Information MEDICAL EQUIPMENT No Information MENTAL STATUS No Information FUNCTIONAL STATUS No Information ASSESSMENTS Encounter Date Diagnosis Assessment Notes Treatment Notes Treatm ent Clinical Notes Apr, Inflammatory acne (ICD-10 - L70.8) PLAN OF TREATMENT Medication Medication Name Sig Start Date Stop Date Tretinoin 0.025 % 1 application in the evening to face Externall y Once a day Spironolactone 50 MG 1 tablet Orally Twice daily for 30 days Mar, Erythromycin 2 % APPLY TOPICALLY TO FACE DAILY External Next Appt Details Provider Name:Sharmin Montano, 11:00:00 AM, [address] [facility], [address], [place], [address], Insurance Providers Payer Name Payer Address Payer Phone Insured Name Patient Relati onship to Insured Coverage Start Date Coverage End Date [facility] [address] [facility] [id number] ANTONINA FRANCISCO self
--- OUTSIDE RECORDS SUMMARY | 2020-05-21 17:08 | CCD ---
Author Author [facility] Address Unknown Phone Unavailable Support Name Relationship Address Phone Charity Jungs Next Of Kin Unknown Unavailable DSW Next Of Kin [id number] [place] [address] UN Next Of Kin Unknown Unavailable CONTACT, OTHER NO Next Of Kin - - -, - - Rebecca Conner Next Of Kin [address] [place] [address] Rosalinda Aceves Next Of Kin [address] [place], [place] [id number] DORIS Next Of Kin [id number] [place] [address] Mali Cat Next Of Kin [address] [place] [address] [address] JESUS ALBERTO Orozco Debbie Next Of Kin [address] [place] [address] [address] [facility] [place] [address] [facility] [place] [address] AUNDREA HAMMER Next Of Kin [address] [place] [address] Emre HAMMER Next Of Kin [address] [place] [address] Yadi Santana Next Of Kin [address] [place] [address] Zahida Cruz Next Of Kin [address] [place] [address] Fernando Garcia Next Of Kin [address] [place] [address] Juanita Galeana DO Next Of Kin [address] [place] [address] [facility]* [place] [address] [facility] [place] [address] CHARITY HAMMER Next Of Kin [address] [place] [address] CHARITY HAMMER [facility] [address] [place] [phone] Unavailable Care Team Providers Care Can Feeder Name Role Phone Konrad, A Rebecca SUSTAINABILITY COMMUNICATOR Unavailable Unavailable Konrad, A Rebecca SUSTAINABILITY COMMUNICATOR Unavailable Unavailable Konrad, A Rebecca SUSTAINABILITY COMMUNICATOR Unavailable Unavailable Konrad, A Rebecca SUSTAINABILITY COMMUNICATOR Unavailable Unavailable Konrad, A Rebecca SUSTAINABILITY COMMUNICATOR Unavailable Unavailable [place], A Rebecca SUSTAINABILITY COMMUNICATOR Unavailable Unavailable [place], A Rebecca SUSTAINABILITY COMMUNICATOR Unavailable Unavailable [place], A Rebecca SUSTAINABILITY COMMUNICATOR Unavailable Unavailable [place], A Rebecca SUSTAINABILITY COMMUNICATOR Unavailable Unavailable [place], A Rebecca SUSTAINABILITY COMMUNICATOR Unavailable Unavailable [place], A Rebecca SUSTAINABILITY COMMUNICATOR Unavailable Unavailable [place], A Rebecca SUSTAINABILITY COMMUNICATOR Unavailable Unavailable [place], A Rebecca SUSTAINABILITY COMMUNICATOR Unavailable Unavailable [place], A Rebecca SUSTAINABILITY COMMUNICATOR Unavailable Unavailable [place], A Rebecca SUSTAINABILITY COMMUNICATOR Unavailable Unavailable [place], A Rebecca SUSTAINABILITY COMMUNICATOR Unavailable Unavailable [place], A Rebecca SUSTAINABILITY COMMUNICATOR Unavailable Unavailable [place], A Rebecca SUSTAINABILITY COMMUNICATOR Unavailable Unavailable [place], A Rebecca SUSTAINABILITY COMMUNICATOR Unavailable Unavailable [place], A Rebecca SUSTAINABILITY COMMUNICATOR Unavailable Unavailable [place], A Rebecca SUSTAINABILITY COMMUNICATOR Unavailable Unavailable [place], A Rebecca SUSTAINABILITY COMMUNICATOR Unavailable Unavailable [place], A Rebecca SUSTAINABILITY COMMUNICATOR Unavailable Unavailable [place], A Rebecca SUSTAINABILITY COMMUNICATOR Unavailable Unavailable [place], A Rebecca SUSTAINABILITY COMMUNICATOR Unavailable Unavailable [place], A Rebecca SUSTAINABILITY COMMUNICATOR Unavailable Unavailable [place], A Rebecca SUSTAINABILITY COMMUNICATOR Unavailable Unavailable [place], A Rebecca SUSTAINABILITY COMMUNICATOR Unavailable Unavailable [place], A Rebecca SUSTAINABILITY COMMUNICATOR Unavailable Unavailable [place], A Rebecca SUSTAINABILITY COMMUNICATOR Unavailable Unavailable [place], A Rebecca SUSTAINABILITY COMMUNICATOR Unavailable Unavailable [place], A Rebecca SUSTAINABILITY COMMUNICATOR Unavailable Unavailable [place], A Rebecca SUSTAINABILITY COMMUNICATOR Unavailable Unavailable [place], A Rebecca SUSTAINABILITY COMMUNICATOR Unavailable Unavailable [place], A Rebecca SUSTAINABILITY COMMUNICATOR Unavailable Unavailable [place], A Rebecca SUSTAINABILITY COMMUNICATOR Unavailable Unavailable [place], A Rebecca SUSTAINABILITY COMMUNICATOR Unavailable Unavailable [place], A Rebecca SUSTAINABILITY COMMUNICATOR Unavailable Unavailable Konrad, A Rebecca SUSTAINABILITY COMMUNICATOR Unavailable Unavailable Konrad, A Rebecca SUSTAINABILITY COMMUNICATOR Unavailable Unavailable Konrad, A Rebecca SUSTAINABILITY COMMUNICATOR Unavailable Unavailable Konrad, A Rebecca SUSTAINABILITY COMMUNICATOR Unavailable Unavailable Konrad, A Rebecca SUSTAINABILITY COMMUNICATOR Unavailable Unavailable Konrad, A Rebecca SUSTAINABILITY COMMUNICATOR Unavailable Unavailable Konrad, A Rebecca SUSTAINABILITY COMMUNICATOR Unavailable Unavailable Konrad, A Rebecca SUSTAINABILITY COMMUNICATOR Unavailable Unavailable Konrad, A Rebecca SUSTAINABILITY COMMUNICATOR Unavailable Unavailable Konrad, A Rebecca SUSTAINABILITY COMMUNICATOR Unavailable Unavailable Konrad, A Rebecca SUSTAINABILITY COMMUNICATOR Unavailable Unavailable Konrad, A Rebecca SUSTAINABILITY COMMUNICATOR Unavailable Unavailable Konrad, A Rebecca SUSTAINABILITY COMMUNICATOR Unavailable Unavailable Konrad, A Rebecca SUSTAINABILITY COMMUNICATOR Unavailable Unavailable Konrad, A Rebecca SUSTAINABILITY COMMUNICATOR Unavailable Unavailable Konrad, A Rebecca SUSTAINABILITY COMMUNICATOR Unavailable Unavailable Tanner Canada MD Unavailable Unavailable Tanner [place] MD Unavailable Unavailable Tanner [place] MD Unavailable Unavailable Tanner [place] MD Unavailable Unavailable Tanner [place] MD Unavailable Unavailable Tanner [place] MD Unavailable Unavailable Tanner [place] MD Unavailable Unavailable Tanner [place] MD Unavailable Unavailable Tanner Canada MD Unavailable Unavailable Tanner Canada MD Unavailable Unavailable Tanner Canada MD Unavailable Unavailable Tanner Canada MD Unavailable Unavailable Tanner Canada MD Unavailable Unavailable Tanner Canada MD Unavailable Unavailable Tanner Canada MD Unavailable Unavailable Tanner Canada MD Unavailable Unavailable Tanner Canada MD Unavailable Unavailable Tanner Canada MD Unavailable Unavailable Tanner Canada MD Unavailable Unavailable Tanner Canada MD Unavailable Unavailable Tanner Canada MD Unavailable Unavailable Tanner Canada MD Unavailable Unavailable Tanner [place] MD Unavailable Unavailable Tanner Canada MD Unavailable Unavailable Tanner Canada MD Unavailable Unavailable Tanner Canada MD Unavailable Unavailable Tanner Canada MD Unavailable Unavailable Donna SARABIAEB PA Unavailable Unavailable SARABIA, Donna CANEB PA Unavailable Unavailable SARABIA, J ROSS PA Unavailable Unavailable SARABIA, J ROSS PA Unavailable Unavailable SARABIA, J ROSS PA Unavailable Unavailable SAARBIA, J ROSS PA Unavailable Unavailable SARABIA, J ROSS PA Unavailable Unavailable SARABIA, J ROSS PA Unavailable Unavailable SARABIA, J ROSS PA Unavailable Unavailable SARABIA, J ROSS PA Unavailable Unavailable SARABIA, J ROSS PA Unavailable Unavailable SARABIA, J ROSS PA Unavailable Unavailable SARABIA, J ROSS PA Unavailable Unavailable SARABIA, J ROSS PA Unavailable Unavailable SARABIA, J ROSS PA Unavailable Unavailable SARABIA, J ROSS PA Unavailable Unavailable SARABIA, J ROSS PA Unavailable Unavailable SARABIA, J ROSS PA Unavailable Unavailable SARABIA, J ROSS PA Unavailable Unavailable SARABIA, J ROSS PA Unavailable Unavailable SARABIA, J ROSS PA Unavailable Unavailable SARABIA, J ROSS PA Unavailable Unavailable SARABIA, J ROSS PA Unavailable Unavailable SARABIA, J ROSS PA Unavailable Unavailable SARABIA, J ROSS PA Unavailable Unavailable SARABIA, J ROSS PA Unavailable Unavailable SARABIA, J ROSS PA Unavailable Unavailable LYDIA, THEODORE Unavailable Unavailable Fish, B aDwna GAMBINO Unavailable Unavailable Fish, B Dawna GAMBINO Unavailable Unavailable Fish, B Dawna GAMBINO Unavailable Unavailable Fish, B Dawna GAMBINO Unavailable Unavailable Fish, B Dawna GAMBINO Unavailable Unavailable Fish, B Dawna GAMBINO Unavailable Unavailable Fish, B Dawna GAMBINO Unavailable Unavailable Fish, B Dawna GAMBINO Unavailable Unavailable Fish, B Dawna GAMBINO Unavailable Unavailable Fish, B Dawna GAMBINO Unavailable Unavailable Fish, B Dawna GAMBINO Unavailable Unavailable Fish, B Dawna GAMBINO Unavailable Unavailable Fish, B Dawna GAMBINO Unavailable Unavailable Fish, B Dawna GAMBINO Unavailable Unavailable Fish, B Dawna GAMBINO Unavailable Unavailable Fish, B Dawna GAMBINO Unavailable Unavailable Fish B Dawna GAMBINO Unavailable Unavailable Fish, B Dawna GAMBINO Unavailable Unavailable Fish, B Dawna GAMBINO Unavailable Unavailable Fish, B Dawna GAMBINO Unavailable Unavailable Fish, B Dawna GAMBINO Unavailable Unavailable Fish, B Dawna GAMBINO Unavailable Unavailable Fish, B Dawna GAMBINO Unavailable Unavailable Fish, B aDwna GAMBINO Unavailable Unavailable Fish, B Dawna GAMBINO Unavailable Unavailable Fish, B Dawna GAMBINO Unavailable Unavailable Fish, B Dawna GAMBINO Unavailable Unavailable Fish, B Dawna GAMBINO Unavailable Unavailable Fish, B Dawna GAMBINO Unavailable Unavailable Fish, B Dawna GAMBINO Unavailable Unavailable Fish, B Dawna GAMBINO Unavailable Unavailable Fish, B Dawna GAMBINO Unavailable Unavailable Fish, B Dawna GAMBINO Unavailable Unavailable Fish, B Dawna GAMBINO Unavailable Unavailable Fish, B Dawna GAMBINO Unavailable Unavailable Fish, B Dawna GAMBINO Unavailable Unavailable Fish, B Dawna GAMBINO Unavailable Unavailable Fish, B Dawna GAMBINO Unavailable Unavailable Fish, B Dawna GAMBINO Unavailable Unavailable Fish, B Dawna GAMBINO Unavailable Unavailable Fish, B Dawna GAMBINO Unavailable Unavailable Fish, B Dawna GAMBINO Unavailable Unavailable Fish, B Dawna GAMBINO Unavailable Unavailable Fish, B Dawna GAMBINO Unavailable Unavailable Fish, B Dawna GAMBINO Unavailable Unavailable Fish, B Dawna GAMBINO Unavailable Unavailable Fish, B Dawna GAMBINO Unavailable Unavailable Fish, B Dawna GAMBINO Unavailable Unavailable Fish, B Dawna GAMBINO Unavailable Unavailable Fish, B Dawna GAMBINO Unavailable Unavailable Fish, B Dawna GAMBINO Unavailable Unavailable Fish, B Dawna GAMBINO Unavailable Unavailable Fish, B Dawna GAMBINO Unavailable Unavailable Fish, B Dawna GAMBINO Unavailable Unavailable Fish, B Dawna GAMBINO Unavailable Unavailable Fish, B Dawna GAMBINO Unavailable Unavailable Fish, B Dawna GAMBINO Unavailable Unavailable Fish, B Dawna GAMBINO Unavailable Unavailable Fish, B Dawna GAMBINO Unavailable Unavailable Fish, B Dawna GAMBINO Unavailable Unavailable Fish, B Dawna GAMBINO Unavailable Unavailable Fish, B Dawna GAMBINO Unavailable Unavailable Fish, B Dawna GAMBINO Unavailable Unavailable Fish, B Dawna GAMBINO Unavailable Unavailable SARABIA, J ROSS PA Unavailable Unavailable SARABIA, J ROSS PA Unavailable Unavailable SARABIA, J ROSS PA Unavailable Unavailable SARABIA, J ROSS PA Unavailable Unavailable SARABIA, J ROSS PA Unavailable Unavailable SARABIA, J ROSS PA Unavailable Unavailable SARABIA, J ROSS PA Unavailable Unavailable SARABIA, J ROSS PA Unavailable Unavailable SARABIA, J ROSS PA Unavailable Unavailable SARABIA, J ROSS PA Unavailable Unavailable SARABIA, J ROSS PA Unavailable Unavailable SARABIA, J ROSS PA Unavailable Unavailable SARABIA, J ROSS PA Unavailable Unavailable SARABIA, J ROSS PA Unavailable Unavailable SARABIA, J ROSS PA Unavailable Unavailable SARABIA, J ROSS PA Unavailable Unavailable SARABIA, J ROSS PA Unavailable Unavailable SARABIA, J ROSS PA Unavailable Unavailable SARABIA, J ROSS PA Unavailable Unavailable SARABIA, J ROSS PA Unavailable Unavailable SARABIA, J ROSS PA Unavailable Unavailable SARABIA, J ROSS PA Unavailable Unavailable SARABIA, J ROSS PA Unavailable Unavailable SARABIA, J ROSS PA Unavailable Unavailable SARABIA, J ROSS PA Unavailable Unavailable SARABIA, J ROSS PA Unavailable Unavailable SARAB[place], J ROSS PA Unavailable Unavailable María JONES ROLY STRATEGIC PROCUREMENT MANAGER Unavailable Unavailable María JONES ROLY STRATEGIC PROCUREMENT MANAGER Unavailable Unavailable María JONES ROLY STRATEGIC PROCUREMENT MANAGER Unavailable Unavailable María JONES ROLY STRATEGIC PROCUREMENT MANAGER Unavailable Unavailable COOK, B ROLY STRATEGIC PROCUREMENT MANAGER Unavailable Unavailable COOK, B ROLY STRATEGIC PROCUREMENT MANAGER Unavailable Unavailable COOK, B ROLY STRATEGIC PROCUREMENT MANAGER Unavailable Unavailable COOK, B ROLY STRATEGIC PROCUREMENT MANAGER Unavailable Unavailable COOK, B ROLY STRATEGIC PROCUREMENT MANAGER Unavailable Unavailable COOK, B ROLY STRATEGIC PROCUREMENT MANAGER Unavailable Unavailable COOK, B ROLY STRATEGIC PROCUREMENT MANAGER Unavailable Unavailable COOK, B ROLY STRATEGIC PROCUREMENT MANAGER Unavailable Unavailable COOK, B ROLY STRATEGIC PROCUREMENT MANAGER Unavailable Unavailable COOK, B ROLY STRATEGIC PROCUREMENT MANAGER Unavailable Unavailable COOK, B ROLY STRATEGIC PROCUREMENT MANAGER Unavailable Unavailable COOK, B ROLY STRATEGIC PROCUREMENT MANAGER Unavailable Unavailable COOK, B ROLY STRATEGIC PROCUREMENT MANAGER Unavailable Unavailable COOK, B ROLY STRATEGIC PROCUREMENT MANAGER Unavailable Unavailable COOK, B ROLY STRATEGIC PROCUREMENT MANAGER Unavailable Unavailable COOK, B ROLY STRATEGIC PROCUREMENT MANAGER Unavailable Unavailable COOK, B ROLY STRATEGIC PROCUREMENT MANAGER Unavailable Unavailable COOK, B ROLY STRATEGIC PROCUREMENT MANAGER Unavailable Unavailable COOK, B ROLY STRATEGIC PROCUREMENT MANAGER Unavailable Unavailable COOK, B ROLY STRATEGIC PROCUREMENT MANAGER Unavailable Unavailable COOK, B ROLY STRATEGIC PROCUREMENT MANAGER Unavailable Unavailable COOK, B ROLY STRATEGIC PROCUREMENT MANAGER Unavailable Unavailable COOK, B ROLY STRATEGIC PROCUREMENT MANAGER Unavailable Unavailable COOK, B ROLY STRATEGIC PROCUREMENT MANAGER Unavailable Unavailable COOK, B ROLY STRATEGIC PROCUREMENT MANAGER Unavailable Unavailable COOK, B ROLY STRATEGIC PROCUREMENT MANAGER Unavailable Unavailable COOK, B ROLY STRATEGIC PROCUREMENT MANAGER Unavailable Unavailable COOK, B ROLY STRATEGIC PROCUREMENT MANAGER Unavailable Unavailable COOK, B ROLY STRATEGIC PROCUREMENT MANAGER Unavailable Unavailable COOK, B ROLY STRATEGIC PROCUREMENT MANAGER Unavailable Unavailable COOK, B ROLY STRATEGIC PROCUREMENT MANAGER Unavailable Unavailable COOK, B ROLY STRATEGIC PROCUREMENT MANAGER Unavailable Unavailable COOK, B ROLY STRATEGIC PROCUREMENT MANAGER Unavailable Unavailable COOK, B ROLY STRATEGIC PROCUREMENT MANAGER Unavailable Unavailable COOK, B ROLY STRATEGIC PROCUREMENT MANAGER Unavailable Unavailable COOK, B ROLY STRATEGIC PROCUREMENT MANAGER Unavailable Unavailable COOK, B ROLY STRATEGIC PROCUREMENT MANAGER Unavailable Unavailable COOK, B ROLY STRATEGIC PROCUREMENT MANAGER Unavailable Unavailable COOK, B ROLY STRATEGIC PROCUREMENT MANAGER Unavailable Unavailable COOK, B ROLY STRATEGIC PROCUREMENT MANAGER Unavailable Unavailable COOK, B ROLY STRATEGIC PROCUREMENT MANAGER Unavailable Unavailable COOK, B ROLY STRATEGIC PROCUREMENT MANAGER Unavailable Unavailable COOK, B ROLY STRATEGIC PROCUREMENT MANAGER Unavailable Unavailable COOK, B ROLY STRATEGIC PROCUREMENT MANAGER Unavailable Unavailable COOK, B ROLY STRATEGIC PROCUREMENT MANAGER Unavailable Unavailable COOK, B ROLY STRATEGIC PROCUREMENT MANAGER Unavailable Unavailable COOK, B ROLY STRATEGIC PROCUREMENT MANAGER Unavailable Unavailable COOK, B ROLY STRATEGIC PROCUREMENT MANAGER Unavailable Unavailable COOK, B ROLY STRATEGIC PROCUREMENT MANAGER Unavailable Unavailable COOK, B ROLY STRATEGIC PROCUREMENT MANAGER Unavailable Unavailable COOK, B ROLY STRATEGIC PROCUREMENT MANAGER Unavailable Unavailable COOK, B ROLY STRATEGIC PROCUREMENT MANAGER Unavailable Unavailable COOK, B ROLY STRATEGIC PROCUREMENT MANAGER Unavailable Unavailable COOK, B ROLY STRATEGIC PROCUREMENT MANAGER Unavailable Unavailable COOK, B ROLY STRATEGIC PROCUREMENT MANAGER Unavailable Unavailable COOK, B ROLY STRATEGIC PROCUREMENT MANAGER Unavailable Unavailable COOK, B ROLY STRATEGIC PROCUREMENT MANAGER Unavailable Unavailable COOK, B ROLY STRATEGIC PROCUREMENT MANAGER Unavailable Unavailable COOK, B ROLY STRATEGIC PROCUREMENT MANAGER Unavailable Unavailable COOK, B ROLY STRATEGIC PROCUREMENT MANAGER Unavailable Unavailable Rebecca Silvestre SUSTAINABILITY COMMUNICATOR SUSTAINABILITY COMMUNICATOR Unavailable Unavailable SERAFIN, L MYRIAM MD Unavailable Unavailable SERAFIN, L MYRIAM MD Unavailable Unavailable SERAFIN, L MYRIAM MD Unavailable Unavailable SERAFIN, L MYRIAM MD Unavailable Unavailable SERAFIN, L MYRIAM MD Unavailable Unavailable SERAFIN, L MYRIAM MD Unavailable Unavailable SERAFIN, L MYRIAM MD Unavailable Unavailable SERAFIN, L MYRIAM MD Unavailable Unavailable SERAFIN, L MYRIAM MD Unavailable Unavailable SERAFIN, L MYRIAM MD Unavailable Unavailable SERAFIN, L MYRIAM MD Unavailable Unavailable SERAFIN, L MYRIAM MD Unavailable Unavailable SERAFIN, L MYRIAM MD Unavailable Unavailable SERAFIN, L MYRIAM MD Unavailable Unavailable SERAFIN, L MYRIAM MD Unavailable Unavailable SERAFIN, L MYRIAM MD Unavailable Unavailable SERAFIN, L MYRIAM MD Unavailable Unavailable SERAFIN, L MYRIAM MD Unavailable Unavailable SERAFIN, L MYRIAM MD Unavailable Unavailable SERAFIN, L MYRIAM MD Unavailable Unavailable SERAFIN, L MYRIAM MD Unavailable Unavailable SERAFIN, L MYRIAM MD Unavailable Unavailable SERAFIN, L MYRIAM MD Unavailable Unavailable NOT, SPECIFIED Unavailable Unavailable Re-disclosure Warning The records that you are about to access may contain information from federally-assisted alcohol or drug abuse programs. If such information is present, then the following federally mandated warning applies: This information has been disclosed to you from records protected by federal confidentiality rules (42 CFR part 2). The federal rules prohibit you from making any further disclosure of this information unless further disclosure is expressly permitted by the written consent of the person to whom it pertains or as otherwise permitted by 42 CFR part 2. A general authorization for the release of medical or other information is NOT sufficient for this purpose. The Federal rules restrict any use of the information to criminally investigate or prosecute any alcohol or drug abuse patient.The records that you are about to access may contain highly sensitive health information, the redisclosure of which is protected by Article 27-F of the [facility] Public Health law. If you continue you may have access to information: Regarding HIV / AIDS; Provided by facilities licensed or operated by the [facility] Office of Mental Health; or Provided by the [facility] Office for People With Developmental Disabilities. If such information is present, then the following [facility] mandated warning applies: This information has been disclosed to you from confidential records which are protected by state law. State law prohibits you from making any further disclosure of this information without the specific written consent of the person to whom it pertains, or as otherwise permitted by law. Any unauthorized further disclosure in violation of state law may result in a fine or halfway sentence or both. A general authorization for the release of medical or other information is NOT sufficient authorization for further disc losure. Allergies and Adverse Reactions Type Description Substance Reaction Status Data Source(s ) No Known Drug Allergies No Known Drug Allergies [facility] Family History Family Member Name Family Member Gender Family Member Status Date o f Status Description Data Source(s) Unknown Unknown Problem [facility] ([facility], ) Unknown Unknown Problem [facility] ([facility]) Unknown Unknown Problem [facility] ([facility]) Unknown Unknown Problem [facility] ([facility]) Encounters Encounter Providers Location Date Indications Data Source(s ) Outpatient Attender: THEODORE FREEMANConbalwinderltant: Rebecca Gunn on [facility] 05/20/2020 01:52:00 PM [facility] - 05/20/2020 01:52:00 PM [facility] Outpatient Attender: THEODORE Changant: Rebecca Gunn on [facility] 05/02/2020 02:04:00 PM [facility] - 05/02/2020 02:04:00 PM [facility] Emergency Attender: MYRIAM BETANCOURT MDConsultant: Rebecca mchugh [facility] 04/27/2020 10:39:00 PM EST - 04/28/2020 05:59:00 AM [facility] Patient discharged. Outpatient Attender: THEODORE FREEMANConsultant: SPECIFIED NOT 04/22/2020 01:46:00 PM EST - 04/22/2020 01:46:00 PM [facility] [place] [id number] [facility] [address] 04/18/2020 12:00:00 AM EST [facility] Outpatient Attender: THEODORE SARABIA PAConsultant: SPECIFIED NOT 04/08/2020 12:49:00 PM EST - 04/08/2020 12:49:00 PM EST [facility] Outpatient Attender: ROSS SARABIA PAConsultant: SPECIFIED NOT 04/08/2020 12:49:00 PM EST - 04/08/2020 12:49:00 PM [facility] Outpatient Attender: ROSS VAZQUEZ [facility] 04/08 12:00:00 PM EST [facility] ([facility] Outpatient Attender: ROLY JONES NP Physical Therapy 04/05/2020 0 1:15:00 PM EST [facility] ([facility]) Outpatient Attender: THEODORE FREEMANConsultant: SPECIFIED NOT 03/25/2020 09:06:00 AM EST - 03/25/2020 09:06:00 AM EST [facility] [place] [id number] [facility] [address] 03/18/2020 12:00:00 AM EST [facility] ([facility]) Outpatient Attender: THEODORE Abdi r: Brady [place] MDConsultant: SPECIFIED NOT 03/11/2020 09:03:00 AM EST - 03/11/2020 09:03:00 AM [facility] Outpatient Attender: THEODORE FREEMANConsultant: SPECIFIED NOT 02/26/2020 01:55:00 PM EDT - 02/26/2020 01:55:[address] [facility] [place] [id number] [facility] [address] 02/19/2020 12:00:00 AM EDT [facility] ([facility]) Outpatient Attender: THEODORE Abdi r: Brady [place] MDConsultant: SPECIFIED NOT 02/05/2020 02:54:00 PM EDT - 02/05/2020 02:54:00 PM EDT [facility] Outpatient Attender: THEODORE Abdi r: Brady [place] MDConsultant: SPECIFIED NOT 01/22/2020 02:55:00 PM EDT - 01/22/2020 02:55:00 PM EDT [facility] Outpatient Attender: THEODORE Abdi r: Brady [place] MDConsultant: SPECIFIED NOT 01/07/2020 01:29:00 PM EDT - 01/07/2020 01:29:00 PM EDT [facility] Outpatient Attender: ROSS Boyle venegas: Brady [place] MDConsultant: SPECIFIED NOT 01/07/2020 01:21:00 PM EDT - 01/07/2020 01:21:00 PM EDT [facility] Outpatient Attender: ROSS VAZQUEZ Family [facility] 01/06 01:20:00 PM EDT [facility] ([facility]) Outpatient Attender: ROLY JONES NP Physical Therapy 01/05/2020 0 2:30:00 PM EDT [facility] ([facility]) Outpatient Attender: THEODORE Abdi r: Brady [place] MDConsultant: SPECIFIED NOT 12/24/2019 02:53:00 PM EDT - 12/24/2019 02:53:00 PM EDT [facility] Outpatient Attender: THEODORE LYDIA 12/10/2019 02:46:00 PM EDT - 12/10/2019 02:46:00 PM EDT [facility] Outpatient Attender: THEODORE LYDIA 11/26/2019 02:41:00 PM EDT - 11/26/2019 02:41:00 PM EDT [facility] Outpatient Attender: THEODORE FREEMANReferrer: Brady Canada MD 11/09/2019 02:54:00 PM EDT - 11/09/2019 02:54:00 PM EDT [facility] Outpatient Attender: ROLY JONES NP Physical Therapy 10/28/2019 0 2:15:00 PM EDT [facility] ([facility]) Outpatient Attender: THEODORE FREEMANReferrer: Brady Canada MD 10/26/2019 02:46:00 PM EDT - 10/26/2019 02:46:00 PM EDT [facility] Outpatient Attender: THEODOREKendell FREEMAN 10/15/2019 02:57:00 PM EDT - 10/15/2019 02:57:00 PM EDT [facility] Outpatient Attender: JESUS ALBERTO COHEN 10/13/2019 09:22:00 A M EDT [facility] Outpatient Attender: Rebecca GRANDA FP 10/12/2019 03:1 2:00 PM EDT [facility] Outpatient Attender: JESUS ALBERTO COHEN 10/12/2019 02:52:01 P M EDT [facility] Outpatient Attender: JESUS ALBERTO COHEN 10/09/2019 11:42:00 A M EDT [facility] Outpatient Attender: ROSS VAZQUEZ 10/04 02:28:00 PM EDT - 10/05/2019 02:28:00 PM EDT [facility] Outpatient Attender: ROSS VAZQUEZ Family Practice 10/04 02:20:00 PM EDT [facility] ([facility]) Outpatient Attender: THEODORE FREEMAN 09/15/2019 03:00:00 PM EDT - 09/15/2019 03:00:00 PM EDT [facility] Outpatient Attender: THEODORE FREEMANReferrer: Brady Canada MD 09/01/2019 03:03:00 PM EDT - 09/01/2019 03:03:00 PM EDT [facility] Outpatient Attender: ROLY JONES NP Physical Therapy 08/24/2019 0 2:15:00 PM EDT [facility] ([facility]) Outpatient Attender: THEODORE FREEMAN 08/10/2019 01:02:00 PM EDT - 08/10/2019 01:02:00 PM EDT [facility] Outpatient Attender: Rebecca GRANDA FP 08/08/2019 08:4 3:01 AM EDT [facility] Outpatient Attender: THEODORE FREEMAN 07/31/2019 01:00:00 PM EDT - 07/31/2019 01:00:00 PM EDT [facility] Outpatient Attender: Rebecca GRANDA FP 07/25/2019 09:4 1:00 PM EDT [facility] Outpatient Attender: JESUS ALBERTO COHEN 07/25/2019 09:41:00 P M EDT [facility] Outpatient Attender: Rebecca COHEN 07/19/2019 10:4 0:01 PM EDT [facility] Outpatient Attender: JESUS ALBERTO GRANDA FP 07/15/2019 06:24:00 P M EDT [facility] Outpatient Attender: JESUS ALBERTO GRANDA FP 07/14/2019 02:30:01 P M EDT [facility] Outpatient Attender: Rebecca GRANDA FP 07/14/2019 02:2 9:00 PM EDT [facility] Outpatient Attender: THEODOREKendell FREEMAN 07/13/2019 12:53:00 PM EDT - 07/13/2019 12:53:00 PM EDT [facility] Outpatient Attender: Rebecca GRANDA FP 07/12/2019 02:4 3:01 PM EDT [facility] Outpatient Attender: JESUS ALBERTO GRANDA FP 07/08/2019 08:51:01 A M [facility] Outpatient Attender: ROSS VAZQUEZ 07/06 02:08:00 PM EST - 07/07/2019 02:08:00 PM [facility] Outpatient Attender: ROSS VAZQUEZ Family Practice 07/06 01:20:00 PM EST [facility] ([facility]) Outpatient Attender: THEODORE LYDIA 06/30/2019 12:49:00 PM EST - 06/30/2019 12:49:00 PM [facility] Outpatient Attender: ROLY JONES NP Physical Therapy 06/25/2019 0 9:45:00 AM EST [facility] ([facility]) Outpatient Attender: THEODORE LYDIA 06/16/2019 12:50:00 PM EST - 06/16/2019 12:50:00 PM [facility] Outpatient Attender: ROSS VAZQUEZ 06/09 02:34:00 PM EST - 06/09/2019 02:34:00 PM [facility] Outpatient Attender: THEODOREKendell FREEMAN 06/04/2019 12:53:00 PM EST - 06/04/2019 12:53:00 PM [facility] Outpatient Attender: JESUS ALBERTO GRANDA FP 06/02/2019 07:47:00 A M [facility] Outpatient Attender: JESUS ALBERTO GRANDA FP 06/02/2019 07:41:01 A M [facility] Outpatient Attender: JESUS ALBERTO GRANDA 06/02/2019 07:40:00 A M [facility] Outpatient Attender: Rebecca Silvestre [facility] 06/02/2019 06:0 3:01 AM [facility] Outpatient Attender: JESUS ALBERTO Silvestre [facility] 06/01/2019 03:54:01 P M [facility] Outpatient Attender: JESUS ALBERTO Silvestre [facility] 06/01/2019 01:21:01 P M [facility] Outpatient Attender: THEODORE FREEMAN 05/18/2019 12:52:00 PM [facility] - 05/18/2019 12:52:00 PM [facility] Outpatient Attender: THEODOREKendell FREEMAN 05/04/2019 12:58:00 PM [facility] 05/04/2019 12:58:00 PM [facility] Outpatient Attender: Dawna Choi MD Physical Therapy 04/20 08:15:00 AM EST [facility] ([facility]) Outpatient Attender: Rebecca Konrad [facility] 04/17/2019 10:1 0:01 AM [facility] Outpatient Attender: JESUS ALBERTO Silvestre [facility] 04/16/2019 01:57:01 P M [facility] Outpatient Attender: ROSS VAZQUEZ 04/10 01:12:00 PM [facility] - 04/10/2019 01:12:00 PM [facility] Outpatient Attender: THEODORE FREEMAN 04/07/2019 08:56:00 AM [facility] - 04/07/2019 08:56:00 AM [facility] Outpatient Attender: Dawna Choi MD Physical Therapy 03/27 12:15:00 PM EST [facility] ([facility]) Outpatient Attender: THEODORE FREEMAN 03/24/2019 01:38:00 PM [facility] - 03/24/2019 01:38:00 PM [facility] Outpatient Attender: ROSS VAZQUEZ 03/12 01:27:00 PM EST - 03/12/2019 01:27:00 PM [facility] Outpatient Attender: THEODORE FREEMAN 03/10/2019 01:51:00 PM EST - 03/10/2019 01:51:00 PM [facility] Outpatient Attender: THEODORE FREEMAN 02/27/2019 01:54:00 PM EDT - 02/27/2019 01:54:00 PM EDT [facility] Outpatient Attender: ROSS VAZQUEZ 02/23 01:52:00 PM EDT - 02/23/2019 01:52:00 PM EDT [facility] Outpatient Attender: THEODORE MATHEWSNT 02/20/2019 09:52:00 AM EDT - 02/20/2019 09:52:00 AM EDT [facility] Medications Medication Brand Name Start Date Product Form Dose Route Admi nistrative Instructions Pharmacy Instructions Status Indications Reaction Description Data Source(s) Spironolactone 50 MG Oral Tablet Spironolactone 50 MG 2019 12:00:00 AM EST 1.0 {tablet} active Spironolact one 50 MG eCW1 ([facility]) Spironolactone 50 MG Oral Tablet Spironolactone 50 MG 2019 12:00:00 AM EST 1.0 {tablet} active Spironolact one 50 MG eCW1 ([facility]) Dapsone 0.05 MG/MG Topical Gel [Aczone] Aczone 5 % Aczone 5 % 02/19/2020 12:00:00 AM EDT 1.0 {application} active Aczone 5 % eCW1 ([facility]) Levothyroxine Sodium 0.075 MG Oral Tablet Levothyroxine Sodi um 01/05/2020 12:00:00 AM EDT ORAL active M [facility] ([facility] Levothyroxine Sodium 0.088 MG Oral Tablet Levothyroxine Sodi um 10/28/2019 12:00:00 AM EDT ORAL completed [facility] ([facility]) Levothyroxine Sodium 0.1 MG Oral Tablet Levothyroxine Sodium 08/24/2019 12:00:00 AM EDT ORAL completed [facility] ([facility]) Levothyroxine Sodium 0.125 MG Oral Tablet Levothyroxine Sodi um 06/25/2019 12:00:00 AM EST ORAL completed [facility] ([facility] ) Metoprolol Tartrate 25 MG Oral Tablet Metoprolol Tartrate 12:00:00 AM EDT ORAL completed [facility] ([facility]) Insurance Providers Payer name Policy type / Coverage type Policy ID Covered libertarian ID Covered libertarian's relationship to clement Policy Clement Plan Information [employer] COMMUNITY PLAN MCDHMO [id number] SP [id number] [facility] COMMUNITY PLAN [place] [id number] 18 [id number] [facility] COMMUNTY PLAN [id number] [employer] COMMUNITY PLAN XIX [id number] 18 [id number] EMEDNY [id number] SP [id number] UNHC COMMUNITY PLAN MCDHMO [id number] SP [id number] UNAVAILABLE UNAVAILA BLE Managed Care - [facility] Community Plan P [id number] S [id number] Medicaid S [id number] S [id number] MEDICAID [id number] SP [id number] Managed Care - [facility] Community Plan P [id number] S [id number] Managed Care - [facility] Community Plan P [id number] S [id number] Medicaid S [id number] S [id number] UN COMMUNITY PLAN XIX [id number] 18 [id number] UN AMERICHOICE XIX -HMO [id number] 18 [id number] Managed Care - Community Plan [facility] P [id number] S [id number] ANSI-Medicaid [id number] ANSI-Medicaid [id number] ANSI-Medicaid [id number] Medicaid S [id number] S [id number] [facility] [place] [id number] 18 [id number] UN COMMUNITY PLAN MC [id number] 18 [id number] Managed Care - Community Plan [facility] P [id number] S [id number] [facility](MCAID) O [id number] S [id number] [facility](MCAID) O [id number] S [id number] [facility] Lionel/MCR Health Maintenance Organization (HMO) [id number] Self [id number] [facility] [id number] 18 [id number] [place] Health Maintenance Organization (HMO) Self Managed Care - Community Plan [facility] P [id number] S [id number] Medicaid S [id number] S [id number] UNHC COMMUNITY PLAN MCDHMO [id number] SP [id number] Managed Care - Community Plan [facility] P [id number] S [id number] [place] Health Maintenance Organization (HMO) Self [facility] Commercial Self Managed Care - Community Plan [facility] P [id number] S [id number] Medicaid S [id number] S [id number] Managed Care - Community Plan [facility] P [id number] S [id number] Medicaid S [id number] S [id number] Managed Care - Community Plan [facility] P [id number] S [id number] Self Pay O UNAVAILABLE S UNAVAILA BLE Medicaid S [id number] S [id number] MEDICAID [id number] SP [id number] BC BS [place] FEDERAL [id number] Problems, Conditions, and Diagnoses Code Display Name Description Problem Type Effective Dates Data Source(s) V70.0 Encounter for general adult medical exam ination with abnormal findings Encounter for general adult medical examination with abnormal findings 10/12/2019 02:50:46 PM EDT [facility] Z30.41 Encounter for surveillance of contracept mikey pills Encounter for surveillance of contraceptive pill 10/12/2019 02:50:46 PM ED T [facility] V65.8 Person consulting for explanation of exa mination or test findings Person consulting for explanation of examination or test findings 07/15/2019 06:22:37 PM EDT [facility] [id number] Bipolar disorder Bipolar disorder Problem 06/09/2019 12 :00:00 AM EST [facility] ([facility]) [id number] Taking medication Taking medication Problem 06/09 12:00:00 AM EST [facility] ([facility]) N3000 Acute cystitis without hematuria Acute cystitis without hematuria Diagnosis 04/27/2020 10:39:00 PM [facility] R109 Unspecified abdominal pain Unspecified abdominal pain Diagnosis 04/27/2020 10:39:00 PM [facility] F319 Bipolar disorder, unspecified Bipolar disorder, unspec ified Diagnosis 04/08/2020 12:49:00 PM [facility] 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 Diagnosis 03/25/2020 09:06:00 AM [facility] Surgeries/Procedures Procedure Description Date Indications Data Source(s) Radiopharmaceutical Therapy By Oral Administration 04/20/2019 12:00:00 AM [facility] ([facility]) Results ID Date Data Source [id number] 04/27/2020 10:39:00 PM [facility] 1 OrderSheet [facility] Emergency Department [address] [place] [address] Phone #: ext- [phone] 04/27/2020 22:13 Patient: ANTONINA HAMMER Sex: F : 1985 Age: 34yWEIGHT:61.6 kg (S) HEIGHT:65 inches (S) BMI:22.6ALLERGIES: No Known Drug AllergyCHIEF COMPLAINT: abdominal painDIAGNOSIS: Urinary tract infectious diseaseLAB ORDERSOrder Description Priority Entered Acknowledged InitialedCBC w Diff STAT 23:54 04/27/2020 01:18 04/28/2020 Myriam Betancourt MD; Annabella Almanza R.N.CMP STAT 23:54 04/27/2020 01:18 04/28/2020 Myriam Betancourt MD; Annabella Almanza R.N.Lipase STAT 23:54 04/27/2020 01:18 04/28/2020 Myriam Betancourt MD; Annabella Almanza R.N.Lactic Acid STAT 23:54 04/27/2020 01:18 04/28/2020 Myriam Betancourt MD; Annabella Almanza R.N.Urinalysis (Clean STAT 23:54 04/27/2020 01:18 04/28/2020Catch) Myriam Betancourt MD; Annabella Almanza R.N.HCG Serum Qual STAT 03:50 04/28/2020 03:53 Serafin Jarrett Norma MD; Annabella HigginsDIAGNOSTIC STUDY ORDERSOrder Description Priority Entered Acknowledged InitialedUS Gall Bladder STAT 23:48 04/27/2020 01:45 04/28/2020(Oxygen?(No)) Myriam Betancourt MD; Annabella Almanza R.N. Reason for Study: RUQ PainMEDICATION/IV/DRIP/FLUID ORDERSOrder Description Priority Entered Acknowledged InitialedIV NS 1000 mL 03:50 04/28/2020 04:05 Cami,Bolus : Bolus 1000 Myriam Betancourt MD; Annabella HigginsmL (X1)Rocephin 03:50 04/28/2020 04:04 Cami, 2 OrderSheet [facility] Emergency Department [address] [place] [address] Phone #: ext- [phone] 04/27/2020 22:13 Patient: ANTONINA HAMMER Sex: F : 1985 Age: 34y(1gm/50mL) IVPB Myriam Betancourt MD; Annabella Higgins1000 mg withDextrose 50 mlspike bag (D5W)GENERAL ORDERSOrder Description Priority Entered Acknowledged Initialed[Electronically signed by Annabella Almanza R.N. (05:59 04/28/2020)][Electronically signed by Myriam Betancourt MD (06:26 04/28/2020)][Electronically locked by Annabella Almanza R.N. (05:59 04/28/2020)] Name Value Range Interpretation Code Description Data Isabella rce(s) Supporting Document(s) ID Date Data Source [id number] 04/27/2020 10:39:00 PM EST [facility] 1 Medication Reconciliation Report [facility] Emergency Department [address] [place] [address] Phone #: [phone]- [phone] 04/27/2020 22:13 Patient: ANTONINA HAMMER Sex: F : 1985 Age: 34yWeight: 61.6 kgHeight/Length: 65 in.BMI: 22 .6ALLERGIES: No Known Drug AllergyThe patient's Home Medications are listed below:CONTINUE TAKING THE FOLLOWING MEDICATIONS: Control Pills Eye medicine for conjunctivitis [place] Carbonate ER Oral Saphris Sublingual Saphrius Spirallactone Thyroid HormoneThe source(s) of the original Home Medication information:Not obtained.The following Medications were given to the patient in the Emergency Department:ROCEPHIN (1GM/50ML) [IVPB] IVPB bolus 1 gm, then 1 gm 100 mL/hr, administered: 04:04 04/28/2020Sodium Chloride [IV] IV Fluids bolus 1000 mL wide open, administered: 04:05 04/28/2020The following Medications were prescribed to the patient:Bactrim DS 800 mg-160 mg tablet Take 1 tablet twice a day -- Dispense 20 tablet. Refills: 0.Substitution permitted.Pharm[facility] - [facility] [id number] ; [place] [address]. . -- Myriam Betancourt MD 2 Medication Reconciliation Report [facility] Emergency Department [address] [place] [address] Phone #: [phone]- [phone] 04/27/2020 22:13 Patient: ANTONINA HAMMER Sex: F : 1985 Age: 34y Name Value Range Interpretation Code Description Data Isabella rce(s) Supporting Document(s) ID Date Data Source [id number] 04/27/2020 10:39:00 PM [facility] 1 Medication Administration Record [facility] Emergency Department [address] [place] [address] Phone #: ext- [phone] 04/27/2020 22:13 Patient: ANTONINA HAMMER Sex: F : 1985 Age: 34yWeight: 61.6 kgHeight/Length: 65 inBMI: 22.6ALLERGIES: No Known Drug Allergy Date/Time Medication Administered Medication OrderedStart SODIUM CHLORIDE [IV] IV NS 1000 mL Bolus : Bolus [id number]:05 04/28/2020 Dose: IV Fluids mL (X1)Annabella Almanza, R.N. Bolus: 1000 mL wide open---- Dispensed: 1000 mL bagStop Site: #1 right AC05:24 04/28/2020Annabella Almanza, R.N.Start ROCEPHIN (1GM/50ML) [IVPB] Rocephin (1gm/50mL) IVPB [id number]:04 04/28/2020 (CEFTRIAXONE SODIUM) mg with Dextrose 50 ml spike Annabella Rg, R.N. Dose: 1 gm IVPB (D5W)---- Rate: 100 mL/hrStop Bolus: 1 gm04:45 04/28/2020 Dispensed: 50 mL Annabella Rg, R.N. Site: #1 right AC Name Value Range Interpretation Code Description Data Isabella rce(s) Supporting Document(s) ID Date Data Source [id number] 04/27/2020 10:39:00 PM [facility] 1 General Instructions [facility] Emergency Department [address] [place] [address] Phone #: ext- [phone] 04/27/2020 22:13 [id number] Sex[facility] F : 1985 Age: 34yAcute urinary tract infection. No cystitis or pyelonephritis.INSTRUCTIONSNo restrictions to activity. Do not work for three days.Drink plenty of fluids.(Take tylenol and motrin for pain. return if worse or any new symptoms. It is important to follow up withyour primary care physician. stop take the other antibiotic. I have sent a prescription to your pharmacy onfile. Take all other medications as instructed.).Warnings: Further evaluation is necessary.GENERAL WARNINGS: Return or contact your physician immediately if your condition worsens orchanges unexpectedly, if not improving as expected, or if other problems arise.Your Current Medications: Your current home medications have been reviewed.CONTINUE TAKING THE FOLLOWING MEDICATIONS: Control Pills*.Eye medicine for conjunctivitis*.[place] Carbonate ER Oral.Saphris Sublingual.Saphrius*.Spirallactone*.Thyroid Hormone*.Prescription Medications:Bactrim DS 800 mg-160 mg tablet Take 1 tablet twice a day -- Dispense 20 tablet. Refills: 0.Substitution permitted.[facility] [phone] ; [place] [address]. .Follow-up:Follow up with your doctor tomorrow. Reason for referral: evaluation. Summary of care provided to patientvia paper. Understanding of the discharge instructions verbalized by patient. ADDITIONAL INFORMATION 2 General Instructions [facility] Emergency Department [address] [place] [address] Phone #: ext- [phone] 04/27/2020 22:13 Patient: ANTONINA HAMMER Sex: F : 1985 Age: 34yBladder Infection, Female (Adult)Urine normally doesn't have any germs (bacteria) in it. But bacteria can get into the urinary tract fromthe skin around the rectum. Or they can travel in the blood from other parts of the body. Once theyare in your urinary tract, they can cause infection in these areas: The urethra (urethritis) The bladder (cystitis) The kidneys (pyelonephritis)The most common place for an infection is in the bladder. This is called a bladder infection. This isone of the most common infections in women. Most bladder infections are easily treated. They arenot serious unless the infection spreads to the kidney.The terms bladder infection, UTI, and cystitis are often used to describe the same thing. But they arenot always the same. Cystitis is an inflammation of the bladder. The most common cause of cystitis isan infection.SymptomsThe infection causes inflammation in the urethra and bladder. This causes many of the symptoms.The most common symptoms of a bladder infection are: Pain or burning when urinating 3 General Instructions [facility] Emergency Department [address] [place] [address] Phone #: ext- [phone] 04/27/2020 22:13 Patient: ANTONINA HAMMER Sex: F : 1985 Age: 34y Having to urinate more often than normal Urgent need to urinate Only a small amount of urine comes out Blood in urine Belly (abdominal) discomfort. This is often in the lower belly above the pubic bone. Cloudy urine Strong- or bad-smelling urine Unable to urinate (urinary retention) Unable to hold urine in (urinary incontinence) Fever Loss of appetite Confusion (in older adults)CausesBladder infections are not contagious. You can't get one from someone else, from a toilet seat, orfrom sharing a bath.The most common cause of bladder infections is bacteria from the bowels. The bacteria get onto theskin around the opening of the urethra. From there, they can get into the urine. Then they travel up tothe bladder, causing inflammation and infection. This often happens because of: Wiping incorrectly after urinating. Always wipe from front to back. Bowel incontinence Procedures such as having a catheter put in Older age Not emptying your bladder. This can give bacteria a chance to grow in your urine. Fluid loss (dehydration) Constipation Having sex 4 General Instructions [facility] Emergency Department [address] [place] [address] Phone #: ext- [phone] 04/27/2020 22:13 Patient: ANTONINA HAMMER Sex: F : 1985 Age: 34y Using a diaphragm for controlTreatmentBladder infections are diagnosed by a urine test and urine culture. They are treated with antibiotics.They often clear up quickly without problems. Treatment helps prevent a more serious kidneyinfection.MedicinesMedicines can help in the treatment of a bladder infection: Take antibiotics until they are used up, even if you feel better. It's important to finish them to make sure the infection has cleared. You can use acetaminophen or ibuprofen for pain, fever, or discomfort, unless another medicine was prescribed. If you have gemma g-term (chronic) liver or kidney disease, talk with your healthcare provider before using these medicines. Also talk with your provider if you've ever had a stomach ulcer or GI (gastrointestinal) bleeding, or are taking blood-thinner medicines. If you are given phenazopydridine to reduce burning with urination, it will make your urine a bright orange color. This can stain clothing.Care and preventionThese self-care steps can help prevent future infections: Drink plenty of fluids. This helps to prevent dehydration and flush out your bladder. Do this unless you must restrict fluids for other health reasons, or your healthcare provider told you not to. Clean yourself correctly after going to the bathroom. Wipe from front to back after using the toilet. This helps prevent the spread of bacteria. Urinate more often. Don't try to hold urine in for a long time. Wear loose-fitting clothes and cotton underwear. Don't wear tight-fitting pants. Improve your diet and prevent constipation. Eat more fresh fruits and vegetables, and fiber. Eat less junk foods and fatty foods. Don't have sex until your symptoms are gone. Don't have caffeine, alcohol, and spicy foods. These can irritate your bladder. Urinate right after you have sex to flush out your bladder. 5 General Instructions [facility] Emergency Department [address] [place] [address] Phone #: [phone]- [phone] 04/27/2020 22:13 Patient: ANTONINA HAMMER Sex: F : 1985 Age: 34y If you use control pills and have frequent bladder infections, discuss it with your healthcare provider.Follow-up careCall your healthcare provider if all symptoms are not gone after 3 days of treatment. This is especiallyimportant if you have repeat infections.If a culture was done, you will be told if your treatment needs to be changed. If directed, you cancall to find out the results.If X-rays were done, you will be told if the results will affect your treatment.Call [phone] if any of the following occur: Trouble breathing Hard to wake up or confusion Fainting (loss of consciousness) Fast heart rateWhen to get medical adviceCall your healthcare provider right away if any of these occur: Fever of 100.4F (38.0C) or higher, or as directed by your healthcare provider Symptoms are not better after 3 days of treatment Back or belly pain that gets worse Repeated vomiting, or unable to keep medicine down Weakness or dizziness Vaginal discharge Pain, redness, or swelling in the outer vaginal area (labia) [phone] [employer]. [address] [place] [address], [place] [address]. All rights reserved. This information is not intended as asubstitute for professional medical care. Always follow your healthcare professional's instructions. You have been given the following additional information: Bladder Infection, Female (Adult) 6 General Instructions [facility] Emergency Department [address] [place] [address] Phone #: ext- [phone] 04/27/2020 22:13 Patient: ANTONINA HAMMER Sex: F : 1985 Age: 34yNo restrictions to activity. Do not work for three days.(Electronically signed by Myriam Betancourt MD 04/28/2020 06:26) Name Value Range Interpretation Code Description Data Isabella rce(s) Supporting Document(s) ID Date Data Source [id number] 04/27/2020 10:39:00 PM EST [facility] 1 Clinical Report - Nurses [facility] Emergency Department [address] [place] [address] Phone #: ext- [phone] 04/27/2020 22:13 Patient: ANTONINA HAMMER Sex: F : 1985 Age: 34yTRIAGEArrived by private vehicle. Historian: patient.Triage time: 22:16 04/27/2020. Acuity: LEVEL 3.Chief Complaint: ABDOMINAL PAIN.Alert. No acute distress.( She thinks she feels "swelling" in her abdomen. She is currently being treated with an unknownantibiotics.). She has had abdominal pain. No nausea, vomiting, diarrhea, constipation or fever.Treatment ADVISORY INTERN:(was seen in urgent care on 04/24 and given an antibiotic). --22:23 04/27/20 Janet Orozco RN22:16 04/27/20. BP: 117/84 taken on the right arm, while sitting. MAP: 95. HR: 93 (regular, normal rateand strong). RR: 20 (regular, unlabored and normal). O2 saturation: 97% on room air. Temp: 100.1 F(oral). Pain level now: 08/13. --22:23 04/27/20 Janet Orozco RN.Weight: 61.6 kg stated. Height/Length: 65 inches Per Patient. BMI: 22.6. --22:21 04/27/20 Janet Orozco RN.MedicationsThyroid Hormone. --22:19 04/27/20 Janet Orozco RN Saphrius. --22:19 04/27/20 Janet Orozco RN [place] Carbonate ER Oral. Saphris Sublingual. --22:19 04/27/20 Janet Orozco RN Control Pills. --22:20 04/27/20 Janet Orozco RN Spirallactone. --22:20 04/27/20 Janet Orozco RN Eye medicine for conjunctivitis. --22:04/27/20 Janet Orozco RN.AllergiesNo Known Drug Allergy. --22:21 04/27/20 Janet Orozco RN.HistorySOCIAL HX: The patient has not traveled outside the [place]Infectious disease exposure: No infectious disease exposure. Patient is not a known carrier of tuberculosis,hepatitis, HIV, MRSA or VRE. Patient is not a known carrier of CRE.SELF HARM ASSESSMENT: Self harm assessment was performed. The patient answered "no" to thequestion(s) "Have you recently felt down, depressed, or hopeless?", "Do you have thoughts of harming orkilling yourself?", "Do you have a plan for harming or killing yourself?" and "Have you recently had thoughts 2 Clinical Report - Nurses [facility] Emergency Department [address] [place] [address] Phone #: ext- [phone] 04/27/2020 22:13 [id number] Sex: F : 1985 Age: 34y about harming or killing others?". ABUSE ASSESSMENT: Abuse assessment. The patient had positive responses to the question(s) "Do you feel safe in your home?", "Are you afraid to go home?" and "Has anyone hurt you or threatened to hurt you?". Abuse denied. NUTRITIONAL RISK ASSESSMENT: The nutritional risk assessment revealed no deficiencies. FUNCTIONAL ASSESSMENT: Functional assessment: no impairments noted. LEARNING NEEDS ASSESSMENT: The learning needs assessment revealed no barriers. FALL RISK ASSESSMENT: Fall risk assessment completed. No risk factors identified. SKIN INTEGRITY ASSESSMENT: Skin integrity risk assessment completed. No skin integrity risk identified. --05:59 04/28/20 Annabella Almanza R.N. SOCIAL HX: Never smoker. --05:59 04/28/20 Annabella Almanza R.N.PHYSICAL ASSESSMENTAmbulatory to room.GENERAL / NEURO / PSYCH: Alert. Oriented X 4. Appears in no acute distress.HEENT: Mucous membranes are pink.RESPIRATORY: Respirations not labored. Breath sounds within normal limits.CVS: Normal sinus rhythm noted. Capillary refill less than 2 seconds.GI / : Abdomen soft and nontender. Bowel sounds within normal limits. ( abdominal x1 week. Deniesn/v/d).SKIN: Skin is warm and dry. --03:12 04/28/20 Annabella Almanza R.N.NURSING PROGRESS NOTES03:11 04/28/20. BP: 134/87. MAP: 102. HR: 75. RR: 18. O2 saturation: 99%. --03:11 04/28/20Annabella Almanza R.N. Reassurance given. The patient is calm and resting quietly. Two patient identifiers checked. Call light placed in reach. Side rails up x 2. Bed placed in lowest position. Brakes of bed on. --03:11 04/28/20 Annabella Almanza R.N. 04:04 04/28/2020 Site #1 started via IV in the right antecubital space with an 20g angiocath, with aseptic technique; one attempt. Saline lock flushed with 10 mL saline. --04:04 04/28/20 Annabella Almanza R.N. 04:04 04/28/2020 Started 1 gm of ROCEPHIN (1GM/50ML) (cefTRIAXone Sodium) IVPB in bag #1 50 mL; bolus of 1 gm then at 100 mL/hr via site #1. via IV pump. Allergies verified and confirmed 5 rights. IV patency established. IV site checked: no pain, redness, or swelling. IV flushed thoroughly pre- and post-medication administration. Information reviewed with patient. Verbalizes understanding. --04:04 3 Clinical Report - Nurses [facility] Emergency Department [address] [place] [address] Phone #: ext- [phone] 04/27/2020 22:13 Patient: ANTONINA HAMMER Sex: F : 1985 Age: 34y 04/28/20 Annabella Almanza R.N. 04:05 04/28/2020 Started bag #1 1000 mL IV Fluids Sodium Chloride; bolus of 1000 mL wide open via site #1 via IV pump. Allergies verified and confirmed 5 rights. IV patency established. IV site checked: no pain, redness, or swelling. IV flushed thoroughly pre- and post- medication administration. Information reviewed with patient. Verbalizes understanding. --04:05 04/28/20 Annabella Almanza R.N. 04:45 04/28/2020 ROCEPHIN (1GM/50ML) IVPB via IV site #1 Discontinued: completed. Total amount infused: 50 mL. IV patency established. IV site checked: no pain, redness, or swelling. IV flushed thoroughly. --05:24 04/28/20 Annbaella Almanza R.N. 05:24 04/28/2020 IV Fluids Sodium Chloride via IV site #1 Discontinued: completed. Total amount infused: 1000 mL. IV patency established. IV site checked: no pain, redness, or swelling. IV flushed thoroughly. --05:24 04/28/20 Annabella Almanza R.N.DISPOSITION / DISCHARGE 05:54 04/28/2020 Site #1 removed upon discharge. Bandaid applied. --05:54 04/28/20 Annabella Almanza R.N. No learning barriers present. Discharge instructions provided and reviewed with the patient. Reviewed warnings. Reviewed medication(s) side effects, precautions, dosing and course information. Prescription(s) given to the patient and sent electronically to pharmacy. Medication(s) for home use given to the patient per protocol. Treatments reviewed. Reviewed referrals. Work note given. Patient verbalized understanding. Written instructions provided in Andorran. The patient was discharged home and accompanied by family. She left ambulatory and via private vehicle. Family member driving. --05:55 04/28/20 Annabella Almanza R.N. 05:55 04/28/20. BP: 116/74. MAP: 88. HR: 78. RR: 16. O2 saturation: 100%. Temp: 98.4 F. Pain level now: 10. --05:55 04/28/20 Annabella Almanza R.N.Locked/Released at 04/28/2020 05:59 by Annabella Almanza R.N. Name Value Range Interpretation Code Description Data Isabella rce(s) Supporting Document(s) ID Date Data Source [id number] 04/27/2020 10:39:00 PM EST [facility] 1 Clinical Report - Physicians/Mid Levels [facility] Emergency Department [address] [place] [address] Phone #: ext- [phone] 04/27/2020 22:13 [id number] Sex[facility] F : 1985 Age: 34y Arrived- By private vehicle. Historian- patient. Disposition decision: 05:44 04/28/2020.HISTORY OF PRESENT ILLNESS Chief Complaint: ABDOMINAL PAIN. No radiation. This started just prior to arrival and is still present. No nausea, loss of appetite, vomiting or diarrhea. No additional abdominal pain. (She thinks she feels "swelling" in her abdomen. She is currently being treated with an unknown antibiotics.). She has had abdominal pain. No nausea, vomiting, diarrhea, constipation or fever). No recent travel. Similar symptoms previously. Recent medical care: The patient was seen recently in the office.REVIEW OF SYSTEMSNo constipation, black stools or stools or hematemesis. No difficulty with urination or urination, pain withurination or urinary frequency or urinary frequency. No bloody stools or stools, fever or headache. Nosore throat or throat, blurred vision or chest pain or pain. No difficulty breathing, cough, joint pain or painor chills. No chills, fever, muscle aches, sweats or ear pain. No hearing loss, runny nose, cough,difficulty breathing or constipation. No diarrhea, nausea, vomiting, hematuria or back pain. No neck pain,skin rash, headache, easy bruising or extremity swelling. The patient has had abdominal pain but no painon weight bearing.PAST HISTORYSee nurses notes. Problems: Bipolar type 1. Seizure (from medication). PTSD. Schizophrenia. Additional Surgeries: Eye surgery. Medications: Eye medicine for conjunctivitis. Spirallactone. Control Pills. [place] Carbonate ER Oral. 2 Clinical Report - Physicians/Mid Levels [facility] Emergency Department [address] [place] [address] Phone #: ext- [phone] 04/27/2020 22:13 --------- [id number] Sex: F : 1985 Age: 34y Saphris Sublingual. Saphrius. Thyroid Hormone. Allergies: No Known Drug Allergy.SOCIAL HISTORYNo drug use.ADDITIONAL NOTESThe nursing notes have been reviewed.PHYSICAL EXAMVital Signs: 04/28/2020 03:11 BP: 134/87. MAP: 102. HR: 75. RR: 18. O2 saturation: 99%.04/27/2020 22:16 BP: sitting 117/84. MAP: 95. HR: 93. RR: 20. O2 saturation: 97% on room air. Temp:100.1 F. Pain level now: 08/13. Have been reviewed and appear to be correct. Blood pressure normal.Mean arterial pressure- high. Heart rate normal. Respiratory rate normal. Temperature normal.Oxygen saturation normal.Appearance: Alert. Oriented X3. No acute distress.Eyes: Pupils equal, round and reactive to light. Eyes normal inspection.ENT: Ears normal. Nose normal. Pharynx normal.Neck: Normal inspection. Neck supple.CVS: Heart rhythm abnormal. Normal heart rate. Heart sounds normal. Pulses normal.Respiratory: No respiratory distress. Painless inspiration. Breath sounds normal. Chest nontender.Abdomen: Soft and nontender. Bowel sounds normal.Back: Normal inspection. No CVA tenderness.Skin: Skin warm and dry. Normal skin color. No rash.Extremities: Extremities exhibit normal ROM. No lower extremity edema.Neuro: Oriented X 3. No motor deficit. No sensory deficit.LABS, X-RAYS, AND EKGLaboratory Tests: Beta-HCG, Qual Serum: (CARLOS: 04/28/2020 01:08) ( MsgRcvd 04/28/2020 04:00) Final results Test Result Flag Units (Reference) HCG SERUM QUAL NEGATIVE (NORMAL: NEGAT HCG SERUM QL REENTER NEGATIVE (NORMAL: NEGAT { KIT LOT # [id number] ){ KIT EXP DATE 02-08-21 ){ PROCEDURAL CONTROL VALID ) US Gall Bladder: (CARLOS: 04/28/2020 00:19) ( MsgRcvd 04/28/2020 00:59) Final results US GALLBLADDER REASON FOR ABDOMEN: RUQ PAIN TRANSPORTATION: AMB IV? N O2? N STATUS: UNKNOWN ISOLATION N 3 Clinical Report - Physicians/Mid Levels [facility] Emergency Department [address] [place] [address] Phone #: ext- [phone] 04/27/2020 22:13 Patient: ANTONINA HAMMER Sex: F : 1985 Age: 34y [place] [address] ---------NAME--------- NUMBER SEX AGE ADMIT DISC. XRAY# F/C TYPE MARYAM SARKAR [id number] F 34 04/27/20 [id number] E/R DATE OF : 1985 M/R# [id number] #: [id number] VT-03 LOCATION: EMERGENCY DEPT TRANSCRIBED: 04/28/20 58 IF US GALLBLADDER [id number] COMPLETED:04/28/20 59 carrol 847 {REASON FOR ABDOMEN: RUQ PAIN PHYSICIAN: INDRA R A D I O L O G Y R E P O R T PATIENT HISTORY: US GALLBLADDER RUQ PAIN EXAM: US Abdomen, Right Upper Quadrant. CLINICAL HISTORY: US GALLBLADDER TECHNIQUE: Right upper quadrant sonography performed with image documentation. COMPARISON: None provided. FINDINGS: LIVER: Within normal limits in size and echogenicity. No mass. GALLBLADDER: The gallbladder appears normal. No gallbladder wall thickening seen. No gallstones are evident. COMMON BILE DUCT: Within normal limits in siz e. PANCREAS: The visualized pancreas appears within normal limits. The distal pancreas is obscured by bowel gas. RIGHT KIDNEY: Unremarkable. Normal renal contours. No renal mass or calculus. No hydronephrosis. IMPRESSIONS: Unremarkable right upper quadrant ultrasound. Electronically Signed By: Mak Clark M.D. , Radiologist Date/Time: 04/28/20 00:58CBC w Diff: (CARLOS: 04/28/2020 01:08) ( MsgRcvd 04/28/2020 01:28) Final results Test Result Flag Units (Reference) CBC W/AUTOMATED DIFF COMPLETE BLOOD COUNT WBC 7.8 10/uL (4.2 - 11.0) RBC 4.69 10/uL (4.20 - 5.40) HEMOGLOBIN 15.0 g/dL (12.0 - 16.0) 4 Clinical Report - Physicians/Mid Levels [facility] Emergency Department [address] [place] [address] Phone #: [phone] ldz- [phone] 04/27/2020 22:13 Patient: ANTONINA HAMMER Sex: F : 1985 Age: 34y HEMATOCRIT 42.6 % (37.0 - 47.0) MCV 90.8 fL (81.0 - 101) MCH 32.0 pg (27.0 - 34.0) MCHC 35.2 g/dL (31.0 - 36.0) RDW 11.6 % (11.5 - 14.5) PLATELETS 317 10/uL (150 - 450) MPV 9.2 fL (7.4 - 10.4) NEUT 67.5 % (37.0 - 80.0) LYMPH 23.3 L % (25.0 - 40.0) MONO 5.0 % (3.0 - 8.0) EOS 3.2 % (0.0 - 7.0) BASO 0.6 % (0.0 - 2.5) %IG 0.4 H % (0.0 - 0.0) %NRBC 0.0 % (0.0 - 0.0) #NEUT 5.29 10/uL (2.00 - 6.90) #LYMPH 1.83 10/uL (0.60 - 3.40) #MONO 0.39 10/uL (0.00 - 0.90) #EOS 0.25 10/uL (0.00 - 0.70) #BASO 0.05 10/uL (0.00 - 0.20) #IG 0.03 10/uL (0.00 - 0.10) #NRBC 0.00 10/uL (0.00 - 0.00) MANUAL DIFF NOT INDICATED RBC MORPH NOT INDICATEDCMP: (CARLOS: 04/28/2020 01:08) ( MsgRcvd 04/28/2020 01:46) Final results Test Result Flag Units (Reference) COMPREHENSIVE METABOLIC PANEL COMPREHENSIVE METABOLIC PANEL SODIUM 136 mEq/L (134 - 153) POTASSIUM 3.9 mEq/L (3.6 - 5.0) CHLORIDE 103 mEq/L (98 - 107) CO2 23 MEQ/L (22 - 30) GLUCOSE 101 MG/DL (65 - 110) BUN 9 MG/DL (7 - 21) CREATININE 0.8 MG/DL (0.7 - 1.5) BUN/CREAT 11 (8 - 27) TOTAL PROTEIN 6.8 G/DL (6.3 - 8.2) ALBUMIN 4.7 G/DL (3.9 - 5.0) GLOBULIN 2.1 L GM/DL (2.4 - 3.2) A/G RATIO 2.2 H (0.8 - 2.0) CALCIUM 9.8 MG/DL (8.4 - 10.2) TOTAL BILI <0.7 MG/DL (0.2 - 1.3) ALKALINE PHOS 53 U/L (38 - 126) SGOT/AST 14 U/L (5 - 40) SGPT/ALT 14 U/L (7 - 56) ANION GAP 10.0 mmol/L (8.0 - 16.0) AGE 34 yrs NON- AA GFR >60 mL/min AFR AMER GFR >60 mL/min Male GFR Interprentation 20-49 yrs >60 mL/min Nydovf21-81 yrs >56 mL/min Normal 60- 69 yrs >49 mL/min Normal 70-79yrs>42 mL/min Normal 80 and above >35 mL/min Normal Female GFRInterpretation 20-39 yrs >60 mL/min Normal 40-49 yrs >58 mL/minNormal 50-59 yrs >51 mL/min Normal 60-69 yrs >45 mL/min Agegov87-51 yrs >39 mL/min Normal 80 and above >32 mL/min NormalLipase: (CARLOS: 04/28/2020 01:08) ( MsgRcvd 04/28/2020 01:41) Final results Test Result Flag Units (Reference) 5 Clinical Report - Physicians/[facility] Emergency Department [address] [place] [address] Phone #: ext- [phone] 04/27/2020 22:13 Patient: ANTONINA HAMMER Sex: F : 1985 Age: 34y LIPASE 35 U/L (13 - 60) Lactic Acid: (CARLOS: 04/28/2020 01:08) ( MsgRcvd 04/28/2020 01:28) Final results Test Result Flag Units (Reference) LACTIC ACID 1.0 MMOL/L (0.2 - 2.2) Urinalysis: (CARLOS: 04/28/2020 01:00) ( MsgRcvd 04/28/2020 01:43) Final results Test Result Flag Units (Reference) URINALYSIS URINALYSIS SOURCE R COLOR yellow (NORMAL: Yello CLARITY hazy (NORMAL: Clear SPEC GRAVITY 1.010 (1.001 - 1.030 pH 7 (5 - 9) GLUCOSE NORM (NORMAL: Negat BILIRUBIN NEG (NORMAL: Negat KETONE NEG (NORMAL: Negat PROTEIN NEG (NORMAL: Negat NITRITE NEG (NORMAL: Negat BLOOD NEG (NORMAL: Negat LEUK EST 100 A (NORMAL: Negat UROBILINOGEN NOR (less than 1.0 MICROSCOPIC See Below WBC 5 - 7 A (NORMAL: NONE RBC None Seen (NORMAL: NONE EPITHELIAL MODERATE A (NORMAL: NONE BACTERIA 1+ SMALL (NORMAL: NONE US Gall Bladder: (CARLOS: 04/27/2020 23:48) ( MsgRcvd 04/28/2020 00:54) Canceled US GALLBLADDER Reason(s): RUQ Pain TRANSPORTATION: I V? O2? Oxygen?(No) Room: ED.PROGRESS AND PROCEDURESCourse of Care: pt presents to the ed for evaluation of her persistent but mild abdominal pain. she statesshe is on abx for a uti. she is still having midl persistent pain. she was wondering if her uti had gottenworse. she has no further dysuria or frequency. her exam is benign. ua shows a mild persistent uti.the rest of her labs are nl. test is negative. I gave pt rocephin iv. she does not know whatabx she is on. I rx her bactrim. I encouraged her to f/u with pcp and to return if worse. pt voicedunderstanding of all instructions. Patient/family counseled. Disposition: Discharged. Condition: good and stable.CLINICAL IMPRESSION Acute urinary tract infection. No cystitis or pyelonephritis. 6 Clinical Report - Physicians/Mid Levels [facility] Emergency Department [address] [place] [address] Phone #: ext- [phone] 04/27/2020 22:13 Patient: ANTONINA AHMMER Sex: F : 1985 Age: 34yINSTRUCTIONS No restrictions to activity. Do not work for three days. Drink plenty of fluids. (Take tylenol and motrin for pain. return if worse or any new symptoms. It is important to follow up with your primary care physician. stop take the other antibiotic. I have sent a prescription to your pharmacy on file. Take all other medications as instructed.). Warnings: Further evaluation is necessary. GENERAL WARNINGS: Return or contact your physician immediately if your condition worsens or changes unexpectedly, if not improving as expected, or if other problems arise. Your Current Medications: Your current home medications have been reviewed. CONTINUE TAKING THE FOLLOWING MEDICATIONS: Control Pills*. Eye medicine for conjunctivitis*. [place] Carbonate ER Oral. Saphris Sublingual. Saphrius*. Spirallactone*. Thyroid Hormone*. Prescription Medications: Bactrim DS 800 mg-160 mg tablet Take 1 tablet twice a day -- Dispense 20 tablet. Refills: 0. Substitution permitted. Pharmacy - [facility] [id number] ; [place] [address]. Phone: . Follow-up: Follow up with your doctor tomorrow. Reason for referral: evaluation. Summary of care provided to patient via paper. Understanding of the discharge instructions verbalized by lang lang(Electronically signed by Myriam Betancourt MD 04/28/2020 06:26) 7Clinical Report - Physicians/Mid Levels [facility] Emergency Department [address] [place] [address] Phone #: ext- [phone] 04/27/2020 22:13 Patient: ANTONINA HAMMER Sex: F : 1985 Age: 34y Name Value Range Interpretation Code Description Data Isabella rce(s) Supporting Document(s) ID Date Data Source [id number] 04/28/2020 01:46:00 AM EST [facility] Name Value Range Interpretation Code Description Data Isabella rce(s) Supporting Document(s) COMPREHENSIVE METABOLIC PANEL [facility] COMPREHENSIVE METABOLIC PANEL Sodium [Moles/volume] in Serum or Plasma 136 mEq/L 134 - 153 [facility] Potassium [Moles/volume] in Serum or Plasma 3.9 mEq/L 3.6 - 5.0 [facility] Chloride [Moles/volume] in Serum or Plasma 103 mEq/L 98 - 107 [facility] Carbon dioxide, total [Moles/volume] in Serum or Plasma 23 MEQ/L 22 - 30 [facility] Glucose [Mass/volume] in Serum or Plasma 101 MG/DL 65 - 110 [facility] BUN 9 MG/DL 7 - 21 [facility] al Creatinine [Mass/volume] in Serum or Plasma 0.8 MG/DL 0.7 - 1.5 [facility] BUN/CREAT 11 8 - 27 [facility] Protein [Mass/volume] in Serum or Plasma 6.8 G/DL 6.3 - 8.2 [facility] Albumin [Mass/volume] in Serum or Plasma 4.7 G/DL 3.9 - 5.0 [facility] Globulin [Mass/volume] in Serum by calculation 2.1 GM/DL 2.4 - 3.2 L [facility] A/G RATIO 2.2 0.8 - 2.0 H [facility] Calcium [Mass/volume] in Serum or Plasma 9.8 MG/DL 8.4 - 10.2 [facility] Bilirubin.total [Mass/volume] in Serum or Plasma <0.7 MG/DL 0.2 - 1.3 [facility] Alkaline phosphatase [Enzymatic activity/volume] in Serum or Plasma 53 U/L 38 - 126 [facility] Aspartate aminotransferase [Enzymatic activity/volume] in Serum or Plasma 14 U/L 5 - 40 [facility] Alanine aminotransferase [Enzymatic activity/volume] in Seru m or Plasma 14 U/L 7 - 56 [facility] Anion gap 3 in Serum or Plasma 10.0 mmol/L 8.0 - 16.0 [facility]GE 34 yrs [facility] NON-AA GFR >60 mL/min [facility] AFR AMER GFR >60 mL/min [facility] Male GFR In terprentation 20-49 yrs >60 mL/min Normal 50-59 yrs >56 mL/min Normal 60-69 yrs >49 mL/min Normal 70-79yrs >42 mL/min Normal 80 and above >35 mL/min Normal Female GFR Interpretation 20-39 yrs >60 mL/min Normal 40-49 yrs >58 mL/min Normal 50-59 yrs >51 mL/min Normal 60-69 yrs >45 mL/min Normal 70-79 yrs >39 mL/min Normal 80 and above >32 mL/min Normal ID Date Data Source [id number] 04/28/2020 01:40:00 AM [facility] Name Value Range Interpretation Code Description Data Isabella rce(s) Supporting Document(s) Lipase [Enzymatic activity/volume] in Serum or Plasma 35 U/L 13 - 60 [facility] ID Date Data Source [id number] 04/28/2020 01:28:00 AM [facility] Name Value Range Interpretation Code Description Data Isabella rce(s) Supporting Document(s) CBC W/AUTOMATED DIFF [facility] COMPLETE BLOOD COUNT Leukocytes [#/volume] in Blood by Automated count 7.8 10^3/uL 4.2 - 1 1.0 [facility] Erythrocytes [#/volume] in Blood by Automated count 4.69 10^6/uL 4. 20 - 5.40 [facility] Hemoglobin [Mass/volume] in Blood 15.0 g/dL 12.0 - 16.0 [facility] Hematocrit [Volume Fraction] of Blood by Automated count 42.6 % 3 7.0 - 47.0 [facility] Erythrocyte mean corpuscular volume [Entitic volume] by Auto mated count 90.8 fL 81.0 - 101 [facility] Erythrocyte mean corpuscular hemoglobin [Entitic mass] by Automated count 32.0 pg 27.0 - 34.0 [facility] Erythrocyte mean corpuscular hemoglobin concentration [Mass/volume] by Automated count 35.2 g/dL 31.0 - 36.0 [facility] Erythrocyte distribution width [Ratio] by Automated count 11.6 % 11.5 - 14.5 [facility] Platelets [#/volume] in Blood by Automated count 317 10^3/uL 150 - 45 0 [facility] Platelet mean volume [Entitic volume] in Blood by Automated count 9.2 fL 7.4 - 10.4 [facility] Neutrophils/100 leukocytes in Blood by Automated count 67.5 % 37. 0 - 80.0 [facility] Lymphocytes/100 leukocytes in Blood by Manual count 23.3 % 25.0 - 40.0 L [facility] Monocytes/100 leukocytes in Blood by Automated count 5.0 % 3.0 - 8.0 [facility] Eosinophils/100 leukocytes in Blood by Automated count 3.2 % 0.0 - 7.0 [facility] Basophils/100 leukocytes in Blood by Automated count 0.6 % 0.0 - 2.5 [facility] %IG 0.4 % 0.0 - 0.0 H [facility] %NRBC 0.0 % 0.0 - 0.0 [facility] al Neutrophils [#/volume] in Blood by Automated count 5.29 10^3/uL 2.00 - 6.90 [facility] Lymphocytes [#/volume] in Blood by Automated count 1.83 10^3/uL 0.60 - 3.40 [facility] Monocytes [#/volume] in Blood by Automated count 0.39 10^3/uL 0.00 - 0.90 [facility] Eosinophils [#/volume] in Blood by Automated count 0.25 10^3/uL 0.00 - 0.70 [facility] Basophils [#/volume] in Blood by Automated count 0.05 10^3/uL 0.00 - 0.20 [facility] #IG 0.03 10^3/uL 0.00 - 0.10 [facility] #NRBC 0.00 10^3/uL 0.00 - 0.00 [facility] MANUAL DIFF NOT INDICATED [facility] RBC MORPH NOT INDICATED [facility] ID Date Data Source [id number] 04/28/2020 01:28:00 AM EST [facility] Name Value Range Interpretation Code Description Data Isabella rce(s) Supporting Document(s) Lactate [Moles/volume] in Serum or Plasma 1.0 MMOL/L 0.2 - 2.2 [facility] ID Date Data Source [id number] 04/28/2020 03:59:00 AM EST [facility] Name Value Range Interpretation Code Description Data Isabella rce(s) Supporting Document(s) HCG SERUM QUAL NEGATIVE NORMAL: NEGATIVE [facility] HCG SERUM QL REENTER NEGATIVE NORMAL: NEGATIVE [facility] { KIT LOT # [id number] ){ KIT EXP DATE 02-08-21 ){ PROCEDURAL CONTROL VALID ) ID Date Data Source [id number] 04/28/2020 01:43:00 AM EST [facility] Name Value Range Interpretation Code Description Data Isabella rce(s) Supporting Document(s) [facility]OURCE [facility] yellow NORMAL: Yellow [facility] CLARITY hazy NORMAL: Clear [facility] Specific gravity of Urine by Test strip 1.010 1.001 - 1.030 [facility] pH 7 5 - [facility] Glucose [Mass/volume] in Urine by Test strip NORM NORMAL: Negat [facility] Bilirubin.total [Presence] in Urine by Test strip NEG NORMAL: Negative [facility] Ketones [Presence] in Urine by Test strip NEG NORMAL: Negative [facility] Protein [Mass/volume] in Urine by Test strip [facility]: [facility] Nit[facility] [Presence] in Urine by Test strip NEG NORMAL: Negative [facility] BLOOD NEG NORMAL: Negative [facility] Leukocyte esterase [Presence] in Urine by Test strip 100 MYRIAM L: Negative [facility] Urobilinogen [Mass/volume] in Urine by Test strip NOR less marcus n 1.0 mg/dL [facility] MICROSCOPIC See Below [facility] ital WBC 5 - 7 NORMAL: NONE SEEN A [facility] Erythrocytes [#/volume] in Urine by Test strip None Seen NORMAL: NON E SEEN [facility] EPITHELIAL MODERATE NORMAL: NONE SEEN A [facility] Bacteria [Presence] in Urine sediment by Light microscopy 1+ SMALL NORMAL: NONE SEEN [facility] ID Date Data Source [id number] 04/30/2020 06:47:00 AM [facility] Name Value Range Interpretation Code Description Data Isabella rce(s) Supporting Document(s) CULTURE URINE [facility] spital _CULTURE URINE_$$[id number]$$[id number]$$[id number]$$[id number]$$327737$$363006$$429623$$257250$$776970$$ 756195$$274542$$538295$$984600$$341661$$168134$$407650$$917909$$614759$$121589$$ 568184$$914441$$273567$$574085$$860303$$248818$$812647$$[id number] -- Continued on next page --Patient: MARYAM SARKAR Order: [id number] Page 2Culture: CULTURE URINE Status: Final ====$$[id number]$$[id number] DATE/TIME: 04/30/2020 06:05Culture: CULTURE URINE Status: FinalUrine Culture,Comprehensive: X5Nxbvp urogenital flora10,000-25,000 colony forming units per mLP1 Test performed by: [facility] CLIA #: [id number] [address] [place] [address] [id number] [facility] [id number] Director : Maxime Daniel MD NPI #:Professor Of Poultry Science : 04/30/[email or web address].XMT.SENT REF ID Date Data Source [id number] 04/28/2020 12:58:00 AM [facility] [address] [place] [address] ---------NAME--------- NUMBER SEX AGE ADMIT DISC. XRAY# F/C TYPE MARYAM SARKAR [id number] F 34 04/27/20 [id number] X6B E/R DATE OF : 1985 M/R# [id number] #: [id number] VT-03 LOCATION: EMERGENCY DEPT TRANSCRIBED: 04/28/20 58 IF US GALLBLADDER [id number] COMPLETED:04/28/20 59 carrol 847 {REASON FOR ABDOMEN: RUQ PAIN PHYSICIAN: SERAFINNOIAN======= R A D I O L O G Y R E P O R T PATIENT HISTORY:US GALLBLADDERRUQ PAINEXAM: US Abdomen, Right Upper Quadrant.CLINICAL HISTORY: US GALLBLADDERTECHNIQUE: Right upper quadrant sonography performed with image documentation.COMPARISON: None provided.FINDINGS:LIVER: Within normal limits in size and echogenicity. No mass.GALLBLADDER: The gallbladder appears normal. No gallbladder wall thickeningseen. No gallstones are evident.COMMON BILE DUCT: Within normal limits in size.PANCREAS: The visualized pancreas appears within normal limits. The distalpancreas is obscured by bowel gas.RIGHT KIDNEY: Unremarkable. Normal renal contours. No renal mass or calculus. Nohydronephrosis.IMPRESSIONS:Unremarkable right upper quadrant ultrasound.Electronically Signed By:Mak Clark M.D. , RadiologistDate/Time: 04/28/20 00:58 Name Value Range Interpretation Code Description Data Isabella rce(s) Supporting Document(s) ID Date Data Source [id number] 03/30/2020 01:41:00 PM EST [facility] ([facility]) Name Value Range Interpretation Code Description Data Isabella rce(s) Supporting Document(s) Free T4 1.14 ng/dL 0.76-1.46 [facility] ([facility]) Thyroid Stimulating Hormone 2.490 uIU/ML 0.358-3.740 [facility] ([facility]) ID Date Data Source [id number] 12/31/2019 03:50:00 PM EDT [facility] ([facility]) Name Value Range Interpretation Code Description Data Isabella rce(s) Supporting Document(s) Thyroid Stimulating Hormone 0.118 uIU/ML 0.358-3.740 [facility] ([facility]) Free T4 1.28 ng/dL 0.76-1.46 [facility] ([facility]) ID Date Data Source [id number] 10/21/2019 03:19:00 PM EDT [facility] ([facility]) Name Value Range Interpretation Code Description Data Isabella rce(s) Supporting Document(s) Blood Urea Nitrogen 10 mg/dL 7-18 Normal (applies to non-nume ann results) [facility] ([facility]) Glucose, Fasting 84 mg/dL 70-100 Normal (applies to non-numeric results) [facility] ([facility]) Sodium Level 140 meq/L 136-145 Normal (applies to non-numeric res ults) [facility] ([facility]) Glomerular Filtration Rate Laboratory test result Normal (applies to non- numeric results) [facility] ([facility]) <content>Units are mL/min/1.73 m2</content>
<content></content>
<content>Chronic Kidney Disease Staging per NKF:</content>
<content></content>
<content>Stage I & II GFR >=60 Normal to Mildly Decreased</content>
<content>Stage III GFR 30- 59 Moderately Decreased</content>
<content>Stage IV GFR 15-29 Severely Decreased</content>
<content>Stage V GFR <15 Very Little GFR Left</content>
<content>ESRD GFR <15 on BUSINESS SERVICES OFFICER</content>
<content></content> Creatinine For GFR 0.88 mg/dL 0.55-1.30 Normal (applies to non -numeric results) [facility] ([facility]) Carbon Dioxide Level 26 meq/L 21-32 Normal (applies to non-num alma results) [facility] ([facility]) Chloride Level 109 meq/L 98-107 Above high normal [facility] ([facility]) Potassium Serum 4.4 meq/L 3.5-5.1 Normal (applies to non-numeric results) [facility] ([facility]) Ast/Sgot 15 U/L 7-37 Normal (applies to non-numeric resul ts) [facility] ([facility]) Anion Gap 5 meq/L 8-16 Below low normal [facility] ( [facility]) Calcium Level 9.0 mg/dL 8.5-10.1 Normal (applies to non-numeric re sults) [facility] ([facility]) Alt/SGPT 33 U/L 12-78 Normal (applies to non-numeric resul ts) [facility] ([facility]) Alkaline Phosphatase 50 U/L 45-117 Normal (applies to non-num alma results) [facility] ([facility]) Bilirubin,Total 0.6 mg/dL 0.2-1.0 Normal (applies to non-numeric results) [facility] ([facility]) Albumin 3.7 GM/DL 3.2-5.2 Normal (applies to non-numeric resul ts) [facility] ([facility]) Total Protein 6.7 GM/DL 6.4-8.2 Normal (applies to non-numeric re sults) [facility] ([facility]) Albumin/Globulin Ratio 1.2 1.2-2.2 Normal (applies to non-n umeric results) [facility] ([facility]) ID Date Data Source [id number] 10/21/2019 03:19:00 PM EDT [facility] ([facility]) Name Value Range Interpretation Code Description Data Isabella rce(s) Supporting Document(s) [place] [Mass/volume] in Serum or Plasma 0.61 meq/L 0.60-1. 20 Normal (applies to non-numeric results) [facility] ([facility] ) Thyrotropin [Units/volume] in Serum or Plasma 0.140 uIU/ML 0. 358-3.740 Below low normal [facility] ([facility]) ID Date Data Source [id number] 10/21/2019 03:19:00 PM EDT [facility] ([facility]) Name Value Range Interpretation Code Description Data Isabella rce(s) Supporting Document(s) Triglycerides Level 113 mg/dL Normal (applies to non-nume ann results) [facility] ([facility]) HDL Cholesterol 44 mg/dL Normal (applies to non-numeric results) [facility] ([facility]) Cholesterol Level 169 mg/dL Normal (applies to non-numeri c results) [facility] ([facility]) LDL Cholesterol 102 mg/dL Above high normal [facility] ([facility]) Non-HDL-C 125 mg/dL Normal (applies to non-numeric resul ts) [facility] ([facility]) Cholesterol Risk Ratio 3.840 Normal (applies to non-n umeric results) [facility] ([facility]) ID Date Data Source [id number] 10/21/2019 03:19:00 PM EDT [facility] ([facility]) Name Value Range Interpretation Code Description Data Isabella rce(s) Supporting Document(s) Hemoglobin A1c 4.9 % Normal (applies to non-numeric r esults) [facility] ([facility]) REFERENCE RANGES: 4.5-5.6% NORMAL 5.7-6.4% SUGGESTS IMPAIRED GLUCOSE META BOLISM >= 6.5% ABNORMAL Estimated Average Glucose 94 mg/dL 60-110 Normal (applies to non-numeric results) [facility] ([facility]) ID Date Data Source [id number] 10/21/2019 03:16:00 PM EDT [facility] ([facility]) Name Value Range Interpretation Code Description Data Isabella rce(s) Supporting Document(s) Thyrotropin [Units/volume] in Serum or Plasma by Detec tion limit <= 0.05 mIU/L 0.137 uIU/ML 0.358-3.740 [facility] ([facility]) Thyroxine (T4) free [Mass/volume] in Serum or Plasma 1.33 ng/dL 0.76- 1.46 [facility] ([facility]) ID Date Data Source [id number] 10/12/2019 01:36:48 PM EDT [facility] Measurements & CalculationsHeight: 65 inches 165.10 cm Weight: 133.8 pounds 60.82 kg Body Mass Index (BMI): 22.35BMI Interpretation: Healthy WeightBody Surface Area (BSA): 1.67Weight Management Education Done (Nutrition/Physical Activity)Vital SignsTemperature: 98.8F 37.11C tympanic Pulse Rate: 86 beats/minuteRespiratory Rate: 16 respirations/minuteBlood Pressure: 122/82 left arm sitting automaticO2 Saturation: 100% room airVital Signs performed by: Leelee Tee , October 12, 2019 1:45 PMInitial Intake Information From: patientRoom #: 9Infectious Disease / Travel ScreeningRecent travel for you or any close contacts? NoHave you had any close contact with anyone diagnosed with or under investigation for COVID-19 (coronavirus)? NoFever? NoRespiratory symptoms: cough, cold, congestion, shortness of breath, difficulty breathing? NoLoss of smell? NoLoss of taste? NoSmoking, Tobacco, Vaping or Smoke Exposure StatusSmoke Status: never smokerTobacco Use: NoDo you vape? NoMenstrual HistoryLast Menstrual Period (LMP): 10/05/2019LMP History: ApproximateAny possibility of ? NoHealthcare HistorySince your last office visit...Have you been admitted to the hospital? NoHave you been to an emergency room (ER) or urgent care clinic? NoHave you seen another healthcare provider? NoHave you seen a dentist? Yes - dr medinaDental exam date reported today: 09/17/2018Intake performed by: Leelee Tee , October 12, 2019 1:39 PMRate Your HealthIn general, would you say your health is? GoodPain AssessmentAre you currently having any pain which... You would like your provider to address? No Affects your activity level? NoDepression Screening - PHQ-2Over the last two weeks, have you... Had little interest or pleasure in doing things? Several days Been feeling down, depressed, or hopeless? Several days PHQ-2 Score: 2Anxiety Screening - KACY-2Over the last two weeks, have you been... Feeling nervous, anxious, or on edge? Several days Unable to stop or control worrying? Several days KACY-2 Score: 2Generalized Anxiety Disorder 7-Item Screening (KACY-7)Answer Guide:0 = Not at all1 = Several days2 = Over half the days3 = Nearly every dayOver the last 2 weeks, how often have you been bothered by the following problems?Feeling nervous, anxious, or on edge: 1Not being able to stop or control worryinWorrying too much about different things: 1Trouble relaxinBeing so restless that it's hard to sit still: 1Becoming easily annoyed or irritable: 0Feeling afraid as if something awful might happen: 0Answer Guide:0 = Not difficult at all1 = Somewhat difficult2 = Very difficult3 = Extremely difficultHow difficult have these made it for you to do your work, take care of things at home, or get along with other people? 0GAD-7 Screening Results KACY-2 Score: 2GAD-7 Score: 5Functional Impairment: Not difficult at allRecommendation: Mild anxietyPHQ-9 1. Over the last 2 weeks, patient reports the following frequency of symptoms: a. Little interest or pleasure in doing things - Several days b. Feeling down, depressed, or hopeless -Several days c. Trouble falling asleep, staying asleep, or sleeping too much -Several days d. Feeling tired or having little energy -Not at all e. Poor appetite or overeating -Not at all f. Feeling bad about yourself, feeling that you are a failure, or feeling that you have let yourself or your family down -Not at all g. Trouble concentrating on things such as reading the newspaper or watching television -Several days h. Moving or speaking so slowly that other people could have noticed. Or being so fidgety or restless that you have been moving around a lot more than usual -Not at all i. Thinking that you would be better off or that you want to hurt yourself in some way -Not at all2. If you checked off any problems, how difficult have these problems made it for you to do your work, take care of things at home, or get along with o ther people? -Not Difficult at AllToday's PHQ-9 Results Score: 4 Severity: Minimal Diagnosis Recommendation: No recommendation Functional Impairment: Not Difficult at AllToday's Follow-Up Action Depression follow-up done. Follow-Up Action: N/A - no follow-up necessaryPRAPARE Sociodemographic Characteristics Race: White Ethnicity: Not or Preferred Language: EnglishFamily and Home Address: [address] [place] [address] What is your housing situation today? I have housing Are you worried about losing your housing? YesMoney and Resources Employed? Yes Are you seeking work? 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 Denies Insecurity: food, utilities, clothing, children's institution attendant, phone, legal services, otherSocial and Emotional Health How often do you see or talk to people that you care about and feel close to? More than 5 times a week How stressed are you? A little bitAdditional Optional Domains In the past 3 months, have you spent more than 2 nights in a row in a halfway, detention, prison center or juvenile correctional facility? No Has lack of transportation kept you from medical appointments or from getting your medications? NoIn the past year, have you had trouble paying the costs associated with health care or medicine (such as co-payments, costs for services, prices of medicines)? I choose not to answer this questionHow confident are you that you can control and manage most of your health problems? I do not have a health problem Are you a refugee? No Do you feel physically and emotionally safe where you live? Unsure In the past year, have you been afraid of a partner, ex-partner? NoScreening, Brief Intervention, & Referral to Treatment (SBIRT)Pre-Screening Questions How many times have you have 4 or more drinks in a day? 0How many times have you used an illegal drug or used a prescription medication for a non-medical reason? 0Performed by: Leelee Tee , October 12, 2019 1:43 PMPatient History Medical History:Anxiety DisorderDepressionSchizoaffective disorderHyperthyroidismGraves DiseaseSurgical History:eye surgery 17yrs oldFamily History:FH of AnxietyFamily History of AsthmaFH DepressionFH DiabetesFH HypertensionFH High CholesterolFamily History of Severe AllergiesFH Weight DisorderFH Psychiatric CareFH HypoglycemiaSocial/Personal History:Smoking History:Patient has never smoked. Chief Complaintannual exam/ patient would like [facility]ill on [facility] History of Present Illness (HPI)cope with anxiety doing music medication and dancing. [facility] for mental health needespt st states not yet seen by derm due to the Pandemic. Pt is followed by Dr Choi for thyroid disease. Pt had radioactibve iodine done04/2019. Pt was started on Levothyroxine. Pt states healthy diet and physical activities. Pt states taking medications as prescribed without side effects. Pt requesting a refill of her control medication. HPI performed by: Rebecca GRANDA, October 12, 2019 2:21 PMTransitions of Care InboundAdult Preventive CareProvider Calculated and Reviewed all Clinical Protocols for patient today. Labs/Meds/Other Counseling-Nutrition and Physical Activity:BMI Interpretation: Healthy Weight (10/12/2019) Counseling: Done (10/12/2019) Physical Activity: Done (10/12/2019)Review of Systems General: Denies loss of appetite, chills, dizziness, fatigue, fever, continued fever, headache, feeling ill, sweats, night sweats, sleep disturbances, weight loss. Eyes: Denies blurring of vision, double vision, irritation, discharge, vision loss, eye pain, eye swelling, droopy eyelid, sensitivity to light, redness, itching. Ears/Nose/Throat: Denies earache, ear discharge, ringing in ears, decreased hearing, nasal congestion, nosebleeds, runny nose, sore throat, hoarseness, difficulty swallowing, dry mouth, tooth pain, bleeding gums, swollen glands. Cardiovascular: Denies chest pain, palpitations, feeling faint, trouble breathing w/exertion, SOB upon lying down, SOB at night, peripheral edema, elevated blood pressure, decreased heart rate. Respiratory: Denies cough, difficulty breathing, shortness of breath, excessive sputum, coughing up blood, wheezing, chest pain. Breast: Denies discoloration, tenderness, breast changes, breast lump, nipple discharge. Gastrointestinal: Denies nausea, vomiting, bleeding, burning, itching, irritation, cramps, diarrhea, constipation. Genitourinary: Denies urinary incontinence, pain with urination, burning with urination, urinary frequency, urinary hesitancy, urinary urgency, urinary urgency at night, incomplete emptying, blood in urine. Musculoskeletal: Denies back pain, joint pain, leg pain, other pain-see comments, joint swelling, body aches, muscle aches, muscle cramps, muscle weakness, stiffness, recent injury. Skin: Denies rash, hives, redness, itching, dryness, nail changes, suspicious lesions, athlete's foot, rash on palms, rash on bottom of feet. Neurologic: Denies muscle impairment, weakness, numbness/tingling, seizures, slurred speech, feeling faint, tremors, vertigo, paralysis on one side, paralysis on both sides. Psychiatric: Denies depression, anxiety, memory loss, mental disturbance, suicidal ideation, homicidal ideation, hallucinations, paranoia, feeling stressed, hearing voices. Endocrine: Complains of excessive thirst, excessive hunger. Denies cold intolerance, heat intolerance, excessive urination, weight loss, weight gain. Heme/Lymphatic: Denies abnormal bruising, bleeding, enlarged lymph nodes. Physical ExamGeneral Appearance: well nourished, well hydrated, no acute distressEyes, External: conjunctivae and lids normal, EOMIRespiratory, Auscultation: clear to auscultation bilaterally; no rales, rhonchi, or wheezesRespiratory, Effort: no intercostal retractions or use of accessory musclesCardiovascular, Auscultation: S1, S2 audible; no murmur, rub, or gallop; RRRPeripheral Circulation: no clubbing, cyanosis, edema, or varicositiesAbdomen: soft, non-tender, no masses, bowel sounds normalGait & Station: normalSkin, Inspection: no rashes, lesions, or ulcerationsOrientation: oriented to time, place, and personMood & Affect: no depression, anxiety, or agitationJudgment & Insight: intactCare Management Plan Transitions of CareInboundRate Your HealthIn general, would you say your health is? GoodAssessment & Plan Problems:Added: Encounter for surveillance of contraceptive pill (ICD-V25.41) (ACN66-K66.41) Assessment: Instructions: We have sent a refill of your contraceptives today.Encounter for general adult medical examination with abnormal findings (ICD-V70.0) (AMW31-H58.01) Assessment: Instructions: You have had your annual physical exam done today. Please take medications as prescribed. Please continue lifestyle changes to include healthy diet and physical activitiesPlease try to maintain adequate intake of water dailyAssessed:Bipolar disorder, unspecified (QDS36-D57.9) Assessment: Instructions: Please continue to follow with your specialist as scheduled.Hyperthyroidism (ICD-242.90) (ICD10- E05.90) Assessment: Instructions: Please continue medications as prescribed. Please continue to follow with your specialist as scheduled.Assessment not Saved Bipolar disorder; unspecified (EBL50-Z26.9): Patient Instructions/Care Plan: Bipolar disorder- unspecified: Please continue to follow with your specialist as scheduled.Hyperthyroidism: Please continue medications as prescribed. Please continue to follow with your specialist as scheduled.Encounter for surveillance of contraceptive pill: We have sent a refill of your contraceptives today.Encounter for general adult medical ex amination with abnormal findings: You have had your annual physical exam done today. Please take medications as prescribed. Please continue lifestyle changes to include healthy diet and physical activitiesPlease try to maintain adequate intake of water daily Plan developed in collaboration with patient and/or familyMedication Changes:New Prescription:KURVELO 0.15-30 MG-MCG ORAL TABLET-take one tablet by mouth once daily Qty: 30[Tablet] Refills: 11 Method: ElectronicOrders:Adult - Ofc Vst, EST, Level III [CPT-[id number]] Follow-Up Return to clinic: as scheduled and as needed Clinical Visit Summary CompletedMedications:KURVELO 0.15-30 MG-MCG ORAL TABLET (LEVONORGESTREL-ETHINYL ESTRAD) take one tablet by mouth once daily #30[Tablet] x 11 Route:ORAL Entered and Authorized by: Rebecca GRANDA Method used: Electronically to [facility]* ([id number]) [address] [place] [id number] Note to Pharmacy: Route: ORAL; Indications: ENCOUNTER FOR SURVEILLANCE OF CONTRACEPTIVE PILL RxID: [id number] signed by Rebecca GRANDA on 10/12/2019 at 3:11 PM Name Value Range Interpretation Code Description Data Isabella rce(s) Supporting Document(s) ID Date Data Source [id number] 08/18/2019 01:57:00 PM EDT [facility] ([facility]) Name Value Range Interpretation Code Description Data Isabella rce(s) Supporting Document(s) Free T4 1.58 ng/dL 0.76-1.46 [facility] ([facility]) Thyroid Stimulating Hormone 0.041 uIU/ML 0.358-3.740 [facility] ([facility]) ID Date Data Source [id number] 07/15/2019 05:06:25 PM EDT [facility] Measurements & CalculationsHeight: 64 inches (5 ft. 4 in.) 162.56 cm Weight: 136 pounds 6 oz. 61.99 kg Body Mass Index (BMI): 23.49BMI Interpretation: Healthy WeightBody Surface Area (BSA): 1.66Weight Management Education Done (Nutrition/Physical Activity)Vital SignsTemperature: 99.0FPulse Rate: 87 beats/minuteRespiratory Rate: 14 respirations/minuteBlood Pressure: 126/85 O2 Saturation: 99% Vital Signs performed by: Ximena Altamirano LPN, July 15, 2019 5:09 PMVital Signs performed by: Ximena Altamirano LPN, July 15, 2019 5:09 PMInitial Intake Information from: patientRoom #: 7Smoking, Tobacco, Vaping or Smoke Exposure StatusSmoke Status: never smokerTobacco Use: NoDo you vape? NoPassive Smoke Exposure: NoMenstrual HistoryLast Menstrual Period (LMP): 07/12/2019LMP History: ApproximateAny possibility of ? NoHealthcare HistorySince your last office visit...Have you been admitted to the hospital? NoHave you been to an emergency room (ER) or urgent care clinic? NoHave you seen another healthcare provider? Yes - jovany PEDROZA , Dawna Choi Have you seen a dentist? NoRate Your HealthIn general, would you say your health is? FairPain AssessmentAre you currently having any pain which... You would like your provider to address? No Affects your activity level? NoDepression Screening - PHQ-2Over the last two weeks, have you... Had little interest or pleasure in doing things? Not at all Been feeling down, depressed, or hopeless? Not at all PHQ-2 Score: 0Anxiety Screening - KACY-2Over the last two weeks, have you been... Feeling nervous, anxious, or on edge? Not at all Unable to stop or control worrying? Not at all KACY-2 Score: 0Food InsecurityWithin the past year...Did you worry whether your food would run out before you got money to buy more? NoWas there a time when the food you bought didn't last and you didn't have money to get more? NoInfectious Disease / Travel ScreeningRecent travel for you, your family, and/or any sexual partners? YesScreening, Brief Intervention, & Referral to Treatment (SBIRT)Pre-Screening Questions How many times have you have 4 or more drinks in a day? 0How many times have you used an illegal drug or used a prescription medication for a non-medical reason? 0Performed by: Ximena Altamirano LPN, July 15, 2019 5:16 PMPatient History Social/Personal History: Chief Comp laintfollow-up visit , labs ,acne meds , and c/o Fatigue room 7History of Present Illness (HPI)33 Yo here for folllow up visit and review of lab results ,Pt states medication compliance. Pt states healthy diet and physical activitiesPt is requesting referral to tangled yarn spool straightener , HPI performed by: Rebecca GRANDA, July 15, 2019 6:11 PMTransitions of Care InboundProblem ReviewProblem List was reviewed and/or updated during this visit.Medication Reconciliation & ReviewMedication List was reviewed and/or updated during this visit, including review of any irid-ucj-offupse medications, herbal therapies, and/or supplements.Allergy ReviewAllergy List was reviewed and/or updated during this visit.Adult Preventive CareProvider Calculated and Reviewed all Clinical Protocols for patient today. Labs/Meds/Other Counseling-Nutrition and Physical Activity:BMI Interpretation: Healthy Weight (07/15/2019) Counseling: Done (07/15/2019) Physical Activity: Done (07/15/2019)Cancer Screening Pap Smear/HP V TestingReviewed: Today's Comments: will schedule when ready ,as stated by PT Review of Systems General: Complains of fatigue. Denies loss of appetite, chills, dizziness, fever, continued fever, headache, feeling ill, sweats, night sweats, sleep disturbances, weight loss. Eyes: Denies blurring of vision, double vision, irritation, discharge, vision loss, eye pain, eye swelling, droopy eyelid, sensitivity to light, redness, itching. Ears/Nose/Throat: Denies earache, ear discharge, ringing in ears, decreased hearing, nasal congestion, nosebleeds, runny nose, sore throat, hoarseness, difficulty swallowing, dry mouth, tooth pain, bleeding gums, swollen glands. Cardiovascular: Denies chest pain, palpitations, feeling faint, trouble breathing w/exertion, SOB upon lying down, SOB at night, peripheral edema, elevated blood pressure, decreased heart rate. Respiratory: Denies cough, difficulty breathing, shortness of breath, excessive sputum, coughing up blood, wheezing, chest pain. Breast: Denies di scoloration, tenderness, breast changes, breast lump, nipple discharge. Gastrointestinal: Denies nausea, vomiting, bleeding, burning, itching, irritation, cramps, diarrhea, constipation. Genitourinary: Denies urinary incontinence, pain with urination, burning with urination, urinary frequency, urinary hesitancy, urinary urgency, urinary urgency at night, incomplete emptying, blood in urine. Musculoskeletal: Denies back pain, joint pain, leg pain, joint swelling, body aches, muscle aches, muscle cramps, muscle weakness, stiffness, recent injury. Skin: Denies rash, hives, redness, itching, dryness, nail changes, suspicious lesions, athlete's foot, rash on palms, rash on bottom of feet. Neurologic: Denies muscle impairment, weakness, numbness/tingling, seizures, slurred speech, feeling faint, tremors, vertigo, paralysis on one side, paralysis on both sides. Psychiatric: Denies depression, anxiety, memory loss, mental disturbance, suicidal ideation, homicidal ideation, hallucinations, paranoia, feeling stressed, hearing voices. Endocrine: Denies cold intolerance, heat intolerance, excessive thirst, excessive hunger, excessive urination, weight loss, weight gain. Heme/Lymphatic: Denies abnormal bruising, bleeding, enlarged lymph nodes. Physical ExamGeneral Appearance: well nourished, well hydrated, no acute distressEyes, External: conjunctivae and lids normal, EOMIRespiratory, Auscultation: clear to auscultation bilaterally; no rales, rhonchi, or wheezesRespiratory, Effort: no intercostal retractions or use of accessory musclesCardiovascular, Auscultation: S1, S2 audible; no murmur, ru b, or gallop; RRRPeripheral Circulation: no clubbing, cyanosis, edema, or varicositiesAbdomen: soft, non-tender, no masses, bowel sounds normalGait & Station: facial acneSkin, Inspection: no rashes, lesions, or ulcerationsOrientation: oriented to time, place, and personMood & Affect: no depression, anxiety, or agitationJudgment & Insight: intactCare Management Plan Transitions of CareInboundRate Your HealthIn general, would you say your health is? FairAssessment & Plan Problems:Added: Person consulting for explanation of examination or test findings (ICD-V65.8) (PJQ62-O76.2) Assessment: Instructions: We have reviewed your lab results with you today. results are unremarkable. Please continue medications as prescribed. Please continue lifestyle changes to include healthydiet and physical activities. Please try to maintain adequate hydration.Assessed:Hyperthyroidism (ICD-242.90) (KYE15-U55.90) Assessment: Instructions: Please continue medications as prescribed. Please continue to follow with your specialist as scheduled.Bipolar disorder, unspecified (WUG06-W43.9) Assessment: Pt is followed at [facility]. Instructions: Please continue medications as prescribed. Please continue to follow with your specialist as scheduled.Health Screening (ICD-V70.0) (ICD10- Z13.9) Assessment: Instructions: We have reviewed your lab results with you today.ACNE VULGARIS, MILD (ICD-706.1) (CLM03-D68.0) Assessment: Instructions: We have made a referral for you today. We will contact you to set this upAssessment not Saved Health Screening (OFL81-G94.9): Patient Instructions/Care Plan: Hyperthyroidism: Please continue medications as prescribed. Please continue to follow with your specialist as scheduled.Bipolar disorder- unspecified: Please continue medications as prescribed. Please continue to follow with your specialist as scheduled.Health Screening: We have reviewed your lab results with you today.Person consulting for explanation of examination or test findings: We have reviewed your lab results with you today. results are unremarkable. Please continue medications as prescribed. Please continue lifestyle changes to include healthydiet and physical activities. Pleas e try to maintain adequate hydration.ACNE VULGARIS- MILD: We have made a referral for you today. We will contact you to set this up Plan developed in collaboration with patient and/or familyMedications:LEVOTHYROXIN 125 MCG TABSPIRONOLACTONE 50 MG ORAL TABLETCLARITIN 10 MG ORAL TABLETLITHIUM CARBONATE TABLETSAPHRIS 2.5 MG SUBLINGUAL TABLET SUBLINGUALMedication Changes:Added: * LEVOTHYROXIN 125 MCG TAB-take one tab once daily do not exceed one tab per 24 hoursRemoved:ORTHO TRI-CYCLEN (28) TABLETAllergies:* VINEGER (Critical)* TOBACCO (Critical)* ENVIROMENTAL (Critical)Orders:Dermatology Cons ult [CPT-78300] COMP METABOLIC PANEL [CPT-92789] CBC W/DIFF [CPT-69865] TSH [CPT-57543] T-4 free [CPT-71645] LIPID PANEL [CPT-28016] Adult - Ofc Vst, EST, Level III [CPT-66219] Follow-Up Return to clinic: 3 months for follow up Clinical Visit Summary Completed] Name Value Range Interpretation Code Description Data Isabella rce(s) Supporting Document(s) ID Date Data Source [id number] 07/08/2019 09:19:11 AM EST [facility] Labs In-House Blood TestsDate/Time Colle cted: July 08, 2019 9:00 AMTest Result Reference Range Normal ValueComments: blood draw done in office, taken from left ac, tolerated Trini Jennings, July 08, 2019 9:19 AMAssessment & Plan Orders:[id number] Vst-Est Level I [CPT-00439] 23564 - Venipuncture [CPT-39455] Name Value Range Interpretation Code Description Data Isabella rce(s) Supporting Document(s) ID Date Data Source [id number] 07/08/2019 09:00:00 AM EST [facility] Name Value Range Interpretation Code Description Data Isabella rce(s) Supporting Document(s) HCT 43.7 % 36.0-47.0 [facility] HGB 14.4 g/dL 12.0-15.5 [facility] MCH 33.0 G/DL pg 32.0-36.5 [facility] MCHC 30.1 PG % 27.0-33.0 [facility] PLATELETS 264 10 10*3/mm3 150-450 [facility] RBC 4.78 10 10*6/mm3 4.00-5.40 [facility] RDW 13.3 % 11.5-14.5 [facility] WBC TOTAL 6.2 4.0-10.0 [facility] ID Date Data Source [id number] 07/08/2019 09:00:00 AM EST [facility] Name Value Range Interpretation Code Description Data Isabella rce(s) Supporting Document(s) BG FASTING 86 mg/dL 70-100 [facility] ID Date Data Source [id number] 06/15/2019 04:04:00 PM EST [facility] ([facility]) Name Value Range Interpretation Code Description Data Iasbella rce(s) Supporting Document(s) Free T4 0.56 ng/dL 0.76-1.46 [facility] ([facility]) Thyroid Stimulating Hormone 9.100 uIU/ML 0.358-3.740 [facility] ([facility]) ID Date Data Source [id number] 06/01/2019 01:26:37 PM EST [facility] Measurements & CalculationsHeight: 64 inches (5 ft. 4 in.) 162.56 cm Weight: 136 pounds 6 oz. 61.99 kg Body Mass Index (BMI): 23.49BMI Interpretation: Healthy WeightBody Surface Area (BSA): 1.66Weight Management Education Done (Nutrition/Physical Activity)Vital SignsTemperature: 98.3FPulse Rate: 82 beats/minuteRespiratory Rate: 17 respirations/minuteBlood Pressure: 126/75 O2 Saturation: 99% Vital Signs performed by: Mela Gordon MA, June 01, 2019 1:38 PMInitial Intake Information from: patientRoom #: 13Infectious Disease- Travel Have you or your sexual partner travelled outside of the country recently? NoSmoking, Tobacco or Smoke Exposure StatusSmoke Status: never smokerTobacco Use: NoPassive Smoke Exposure: NoMenstrual HistoryLast Menstrual Period (LMP): 05/05/2019LMP History: ApproximateAny possibility of ? NoHealthcare HistorySince your last office visit...Have you been admitted to the hospital? NoHave you been to an emergency room (ER) or urgent care clinic? NoHave you seen another healthcare provider? Yes - , Dr Henson you seen a dentist? YesIntake performed by: Mela Gordon MA, June 01, 2019 1:33 PMRate Your HealthIn general, would you say your health is? GoodPain AssessmentAre you currently having any pain which... You would like your provider to address? No Affects your activity level? NoDepression Screening - PHQ-2Over the last two weeks, have you... Had little interest or pleasure in doing things? Not at all Been feeling down, depressed, or hopeless? Not at all PHQ-2 Score: 0Anxiety Screening - KACY-2Over the last two weeks, have you been... Feeling nervous, anxious, or on edge? Not at all Unable to stop or control worrying? Not at all KACY-2 Score: 0Infectious Disease- Travel Cont. Any possibility of ? NoScreening, Brief Intervention, & Referral to Treatment (SBIRT)Pre- Screening Questions How many times have you have 4 or more drinks in a day? 0How many times have you used an illegal drug or used a prescription medication for a non-medical reason? 0Performed by: Mela Gordon MA, June 01, 2019 1:33 PMPatient History Medical History:Anxiety DisorderDepressionSchizoaffective disorderHyperthyroidismGraves DiseaseSurgical History:eye surgery 17yrs oldFamily History:FH of AnxietyFamily History of AsthmaFH DepressionFH Diabete HypertensionFH High CholesterolFamily History of Severe AllergiesFH Weight DisorderFH Psychiatric CareFH HypoglycemiaSocial/Personal History:Smoking History:Patient has never smoked. Smoking Status: never smokerChief ComplaintmedsHistory of Present Illness (HPI)33 yo female here today to follow up on meds. Pt states her meds are working. Pt states she sees [facility] and they give her psych Rx now. Pt states she was Dx graves disease. Pt states she would like some derm Rx for acne. Pt states her acne has been bad for a few months.Pt states have taken Spironolactone in the past with positive effect. HPI performed by: Rebecca Silvestre [facility], June 01, 2019 2:04 PMTransitions of Care InboundProblem ReviewProblem List was reviewed and/or updated during this visit.Medication Reconciliation & ReviewMedication List was reviewed and/or updated during this visit, including review of any slel-wjx-gpwgkmj medications, herbal therapies, and/or supplements.Allergy ReviewAllergy List was reviewed and/or updated during this visit.Adult Preventive CareProvider Calculated and Reviewed all Clinical Protocols for patient today. Labs/Meds/Other Counseling- Nutrition and Physical Activity:BMI Interpretation: Healthy Weight (06/01/2019) Counseling: Done (06/01/2019) Physical Activity: Done (06/01/2019)Review of Systems General: Denies loss of appetite, chills, dizziness, fatigue, fever, continued fever, headache, feeling ill, sweats, night sweats, sleep disturbances, weight loss. Eyes: Denies blurring of vision, double vision, irritation, discharge, vision loss, eye pain, eye swelling, droopy eyelid, sensitivity to light, redness, itching. Ears/Nose/Throat: Denies earache, ear discharge, ringing in ears, decreased hearing, nasal congestion, nosebleeds, runny nose, sore throat, hoarseness, difficulty swallowing, dry mouth, tooth pain, bleeding gums, swollen glands. Cardiovascular: Denies chest pain, palpitations, feeling faint, trouble breathing w/exertion, SOB upon lying down, SOB at night, peripheral edema, elevated blood pressure, decreased heart rate. Respiratory: Denies cough, difficulty breathing, shortness of breath, excessive sputum, coughing up blood, wheezing, chest pain. Gastrointestinal: Denies nausea, vomiting, bleeding, burning, itching, irritation, cramps, diarrhea, constipation. Genitourinary: Denies urinary incontinence, pain with urination, burning with urination, urinary frequency, urinary hesitancy, urinary urgency, urinary urgency at night, incomplete emptying, blood in urine. Musculoskeletal: Denies back pain, joint pain, leg pain, joint swelling, body aches, muscle aches, muscle cramps, muscle weakness, stiffness, recent injury. Skin: facial acneNeurologic: Denies muscle impairment, weakness, numbness/tingling, seizures, slurred speech, feeling faint, tremors, vertigo, paralysis on one side, paralysis on both sides. Psychiatric: Complains of depression, [facility]. [facility] anxiety depressionEndocrine: Denies cold intolerance, heat intolerance, excessive thirst, excessive hunger, excessive urination, weight loss, weight gain. Physical ExamGeneral Appearance: well nourished, well hydrated, no acute distressEyes, External: conjunctivae and lids normal, EOMIRespiratory, Auscultation: clear to auscultation bilaterally; no rales, rhonchi, or wheezesRespiratory, Effort: no intercostal retractions or use of accessory musclesCardiovascular, Auscultation: S1, S2 audible; no murmur, rub, or gallop; RRRPeripheral Circulation: no clubbing, cyanosis, edema, or varicositiesAbdomen: soft, non-tender, no masses, bowel sounds normalGait & Station: facial acneSkin, Inspection: no rashes, lesions, or ulcerationsOrientation: oriented to time, place, and personMood & Affect: no depression, anxiety, or agitationJudgment & Insight: intactCare Management Plan Transitions of CareInboundRate Your HealthIn general, would you say your health is? GoodAssessment & Plan Problems:Assessed:Hyperthyroidism (ICD-242.90) (ICD10- E05.90) Assessment: Pt follows with Dr Choi. Instructions: Please continue to follow with your specialist.Bipolar disorder, unspecified (OLB67-N36.9) Assessment: Instructions: Please continue medications as prescribed. Please continue to follow with your specialist.ACNE VULGARIS, MILD (ICD-706.1) (ICD10- L70.0) Assessment: started spironolactone. will check CBC CMP in 6 weeks. Instructions: We will send a prescription to refill your spironolactone 50 mg . please take this medication as prescribed. Please report any major side effects.ANXIETY DISORDER (ICD-300.00) (KCD71-I32.9) Assessment: Pt states sta ble on meds. Follows with Jovany PEDROZA. Instructions: Please continue medications as prescribed. Please continue to follow with your MH team.Patient Instructions/Care Plan: Hyperthyroidism: Please continue to follow with your specialist.Bipolar disorder- unspecified: Please continue medications as prescribed. Please continue to follow with your specialist.ACNE VULGARIS- MILD: We will send a prescription to refill your spironolactone 50 mg . please take this medication as prescribed. Please report any major side effects.ANXIETY DISORDER: Please continue medications as prescribed. Please continue to follow with your MH team. Plan developed in collaboration with patient and/or familyMedications:SPIRONOLACTONE 50 MG ORAL TABLETCLARITIN 10 MG ORAL TABLETLITHIUM CARBONATE TABLETSAPHRIS 2.5 MG SUBLINGUAL TABLET SUBLINGUALORTHO TRI-CYCLEN (28) TABLETMedication Changes:New Prescription:SPIRONOLACTONE 50 MG ORAL TABLET-take one tablet by mouth daily Qty: 30[Tablet] Refills: 1 Method: ElectronicRemoved:FLONASE 50 MCG/ACT NASAL SUSPENSION-1 squirt each nostril bidAllergies:* VINEGER (Critical)* TOBACCO (Critical)* ENVIROMENTAL (Critical)Orders:COMP METABOLIC PANEL [CPT-32071] CBC W/DIFF [CPT-29854] Adult - Ofc Vst, EST, Level III [CPT-34008] Follow-Up Return to clinic: 6 weeks for follow up Additional Follow-Up: one prior for blood work. Clinical Visit Summary Completed Name Value Range Interpretation Code Description Data Isabella rce(s) Supporting Document(s) ID Date Data Source [id number] 05/08/2019 05:08:00 PM EST [facility] ([facility]) Name Value Range Interpretation Code Description Data Isabella rce(s) Supporting Document(s) Thyrotropin [Units/volume] in Serum or Plasma by Detec tion limit <= 0.05 mIU/L Laboratory test result 0.358-3.740 [facility] ([facility]) Thyroxine (T4) free [Mass/volume] in Serum or Plasma 2.83 ng/dL 0.76- 1.46 [facility] ([facility]) ID Date Data Source [id number] 04/19/2019 07:04:00 PM EST [facility] ([facility]) Name Value Range Interpretation Code Description Data Isabella rce(s) Supporting Document(s) Choriogonadotropin.beta subunit ( test) [Pres ence] in Serum or Plasma Laboratory test result [facility] ([facility]) Procedure Social History Code Duration Value Status Description Data Source(s ) Smoking 04/05/2020 12:00:00 AM EST Patient has never smoked co mpleted Patient has never smoked [facility] ([facility]) Smoking 03/18/2020 12:00:00 AM EST Never Smoker completed Never S moker eCW1 ([facility]) Smoking 03/18/2020 12:00:00 AM EST Never Smoker completed Never S moker eCW1 ([facility]) Vital Signs ID Date Data Source UNK Name Value Range Interpretation Code Description Data Source(s) Body mass index (BMI) [Ratio] 23.2 kg/m2 23.2 k g/m2 [facility] ([facility] Body weight 135.12 [lb_av] 135.12 [lb_av] MED[facility] T ([facility] ) Body height 64 [in_i] 64 [in_i] [facility] ([facility]) 5'4" Body temperature 98.2 [degF] 98.2 [degF] [facility] ([facility]) Heart rate 76 /min 76 /min [facility] ([facility]) Diastolic blood pressure 80 mm[Hg] 80 mm[Hg] [facility] ([facility]) Systolic blood pressure 110 mm[Hg] 110 mm[Hg] M EDENT ([facility] ) Diastolic blood pressure 72 mm[Hg] 72 mm[Hg] eCW1 ([facility]) Systolic blood pressure 126 mm[Hg] 126 mm[Hg] e CW1 ([facility]) Body mass index (BMI) [Ratio] 22.30 kg/m2 22.30 kg/m2 [facility] ([facility]) Body height 65 [in_i] 65 [in_i] W1 ([facility]) Body weight 134.0 [lb_av] 134.0 [lb_av] eCW1 ([facility]) Diastolic blood pressure 74 mm[Hg] 74 mm[Hg] eCW1 ([facility]) Systolic blood pressure 122 mm[Hg] 122 mm[Hg] e CW1 ([facility]) Body mass index (BMI) [Ratio] 22.86 kg/m2 22.86 kg/m2 [facility] ([facility]) Body height 65 [in_i] 65 [in_i] W1 ([facility]) Body weight 137.4 [lb_av] 137.4 [lb_av] eCW1 ([facility]) Oxygen saturation in Arterial blood by Pulse oximetry 98 % 98 % [facility] ([facility]) Body mass index (BMI) [Ratio] 22.9 kg/m2 22.9 k g/m2 [facility] ([facility]) Body weight 133.50 [lb_av] 133.50 [lb_av] MED[facility] T ([facility]) Body height 64 [in_i] 64 [in_i] [facility] ([facility]) 5'4" Heart rate 91 /min 91 /min [facility] ([facility]) Diastolic blood pressure 76 mm[Hg] 76 mm[Hg] [facility] ([facility]) Systolic blood pressure 118 mm[Hg] 118 mm[Hg] M EDENT ([facility] ) Oxygen saturation in Arterial blood by Pulse oximetry 99 % 99 % [facility] ([facility] ) Body mass index (BMI) [Ratio] 23.5 kg/m2 23.5 k g/m2 [facility] ([facility]) Body weight 137.00 [lb_av] 137.00 [lb_av] MED[facility] T ([facility] ) Body height 64 [in_i] 64 [in_i] [facility] ([facility]) 5'4" Heart rate 81 /min 81 /min [facility] ([facility]) Diastolic blood pressure 76 mm[Hg] 76 mm[Hg] [facility] ([facility]) Systolic blood pressure 139 mm[Hg] 139 mm[Hg] M EDENT ([facility] ) Oxygen saturation in Arterial blood by Pulse oximetry 99 % 99 % [facility] ([facility]) Body mass index (BMI) [Ratio] 23.9 kg/m2 23.9 k g/m2 [facility] ([facility]) Body weight 139.25 [lb_av] 139.25 [lb_av] [facility] T ([facility]) Body height 64 [in_i] 64 [in_i] [facility] ([facility]) 5'4" Heart rate 79 /min 79 /min [facility] ([facility]) Diastolic blood pressure 62 mm[Hg] 62 mm[Hg] [facility] ([facility]) Systolic blood pressure 110 mm[Hg] 110 mm[Hg] M EDENT ([facility]) Oxygen saturation in Arterial blood by Pulse oximetry 99 % 99 % [facility] ([facility]) Body weight 137.19 [lb_av] 137.19 [lb_av] [facility] T ([facility]) Heart rate 94 /min 94 /min [facility] ([facility]) Patient Treatment Plan of Care Planned Activity Planned Date Details Description Data Source (s) Spironolactone 50 MG Oral Tablet 03/18/2020 12:00:00 AM EST eCW1 ([facility]) Spironolactone 50 MG Oral Tablet 03/18/2020 12:00:00 AM EST eCW1 ([facility]) Dapsone 0.05 MG/MG Topical Gel [Aczone] 02/19/2020 12:00:00 AM EDT eCW1 ([facility])
--- OUTSIDE RECORDS SUMMARY | 2020-05-21 17:08 | CCD | Continuity of Care Document ---
Author Author Amy FREEMAN [facility] Organization Unknown Address [facility] [address] [place] [address] Phone [phone] Care Team Providers Care Landscape Architecture Professor Name Role Phone [facility] AUTM AUTM Unavailable Problems Active Problems Provider [...] hours 30tabs F31.78 Brady Canada MD 11/26/2017 [place] Carbonate 300mg Capsules 2 caps by mouth [...] Test Result H/L Range Note Hgba1c 10/21/2019 [facility] Hemoglobin A1c 4.9 % Normal 1 Estimated Average Glucose 94 mg/dL Normal 60-110 Cve Panel 10/21/2019 [facility] Triglycerides Level 113 mg/dL Normal <150 Cholesterol Level 169 mg/dL Normal <200 HDL Cholesterol 44 mg/dL Normal >40 LDL Cholesterol 102 mg/dL High <100 Non-HDL-C 125 mg/dL Normal Cholesterol Risk Ratio 3.840 Normal <5 Laboratory test finding 10/21/2019 [facility] [place] Level 0.61 mEq/L Normal 0.60-1.20 Thyroid Stimulating Hormone 0.140 uIU/ML Low 0.358-3.740 Comprehensive Metabolic Profil 10/21/2019 [facility] Glucose, Fasting 84 mg/dL Normal 70-100 Blood [...] Little GFR Left ESRD 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 Procedures Description No Information Available Medical Devices Description No Information Available Encounters Description No Information Available Assessments Date Code Description Provider 02/05/2020 F31.9 Bipolar disorder, unspecified Th ea Aditi, [facility] 02/05/2020 Z79.899 Other protective clothing issuer (current) drug t herapy Iesha Aditi, [facility] 01/22/2020 F31.9 Bipolar disorder, unspecified Th ea [place], [facility] 01/22/2020 Z79.899 Other protective clothing issuer (current) drug t herapy Iesha [place], [facility] 01/07/2020 F31.9 Bipolar disorder, unspecified Th ea Aditi, [facility] 01/07/2020 F31.9 Bipolar disorder, unspecified Ca olegario Porter PA-C 01/07/2020 Z79.899 Other protective clothing issuer (current) drug t herapy Iesha Aditi, [facility] 01/07/2020 Z79.899 Other fpc (current) drug t herapy Zach Porter PA-C 12/24/2019 F31.9 Bipolar disorder, unspecified Th ea [place], [facility] 12/24/2019 Z79.899 Other protective clothing issuer (current) drug t herapy Iesha [place], [facility] 12/10/2019 F31.9 Bipolar disorder, unspecified Th ea [place], [facility] 12/10/2019 Z79.899 Other fpc (current) drug t herapy Iesha [place], [facility] 11/26/2019 F31.9 Bipolar disorder, unspecified Th ea [place], [facility] 11/26/2019 Z79.899 Other fpc (current) drug t herapy Iesha Aditi, [facility] 11/09/2019 F31.9 Bipolar disorder, unspecified Th ea [place], [facility] 11/09/2019 Z79.899 Other protective clothing issuer (current) drug t herapy Iesha Aditi, [facility] 10/26/2019 F31.9 Bipolar disorder, unspecified Th ea Aditi, [facility] 10/26/2019 Z79.899 Other fpc (current) drug t herapy Iesha Aditi, [facility] 10/15/2019 F31.9 Bipolar disorder, unspecified Th ea [place]iti, [facility] 10/15/2019 Z79.899 Other protective clothing issuer (current) drug t herapy Iesha [place], [facility] 10/05/2019 F31.9 Bipolar disorder, unspecified Ca olegario Porter PA-C 10/05/2019 Z79.899 Other protective clothing issuer (current) drug t herapy Zach Porter PA-C 09/15/2019 F31.9 Bipolar disorder, unspecified Th ea [place], [facility] 09/15/2019 Z79.899 Other fpc (current) drug t herapy Iesha [place], [facility] 09/01/2019 F31.9 Bipolar disorder, unspecified Th ea [place], [facility] 09/01/2019 Z79.899 Other protective clothing issuer (current) drug t herapy Iesha BRENDAN Freeman Plan of Treatment Future Appointment(s):* 04/22/2020 2:00 pm - IeshaBRENDAN Antonio at [facility] * 04/08/2020 2:00 pm - IeshaBRENDAN Antonio at [facility] * 03/25/2020 9:00 am - IeshaBRENDAN Antonio at [facility] * 03/11/2020 9:00 am - IeshaBRENDAN Antonio at [facility] * 04/08/2020 1:00 pm - Zach Porter PA-C at [facility] Functional Status Description No Information Available Mental Status Description No Information Available Referrals Description No Information Available
--- OUTSIDE RECORDS SUMMARY | 2020-05-21 17:08 | CCD ---
Author Author [facility] Organization [facility] Address Unknown Phone Unavailable Care Team Providers Care Wire Wrapping Machine Operator Name Role Phone Sharmin Montano Unavailable PROBLEMS Type Condition ICD9-CM Code [id number] Code Onset Dates Condition S tatus SNOMED Code Notes Problem Schizoaffective disorder 295.70 Active 3058439 3 Problem BMI 26.0-26.9,adult V85.22 Active 456886426 Problem Anxiety 300.00 Active 26457508 Problem Eustachian tube dysfunction 381.81 Active 5671 3002 Problem Vertigo 780.4 Active 400233150 Problem Allergic rhinitis, unspecified seasonality, unspecifie d trigger J30.9 Active 95007235 Problem Acne 706.1 Active 69343084 Problem Atopic dermatitis, unspecified type L20.9 Acti ve 94490172 Problem Depression 311 Active 385527201 Problem Allergic rhinitis 477.9 Active 04890312 Problem Eczema 692.9 Active 79530020 Problem Abnormal laboratory test result R89.9 Active 734640079 Problem Abnormal laboratory test R89.9 Active 3621340 00 ALLERGIES Allergen (clinical drug ingredient) Drug/Non Drug Allergy do cumented on EMR Reaction Allergy Type Onset Date Status tobacco and cigarette smoke throat swelling Non Drug Aller gy Active environmental watery eyes Non Drug Allergy Acti ve ENCOUNTERS from 1985 to 2020-03-25 Encounter Location Date Provider Diagnosis [facility] Dermatology [address] [address] 13 Mar, 2020 Sharmin Montano Inflammatory acne L70.8 and 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 IMMUNIZATIONS Vaccine Route Administration Date Status Influenza [...] REASON FOR REFERRAL No Information VITAL SIGNS Weight 134.0 lbs Mar, Height 65 in Mar, BMI 22.30 kg/m2 Mar, Blood pressure systolic 126 mm Hg Mar, Blood pressure diastolic 72 mm Hg Mar, MEDICATIONS Medication SIG (Take, Route, Frequency, Duration) Notes Start Da te End Date Status [place] Carbonate 300 mg 2 tabs before bedtime Active Mucinex DM 30-600 MG 1 tablet as needed Orally every 12 hrs for 10 day(s) Mar, Not-Taking PredniSONE Active Spironolactone 50 MG 1 tablet Orally Twice daily for 30 day(s) Mar, Active Saphris as directed oral before bedtime Active Erythromycin 2 % APPLY TOPICALLY TO [...] Information RESULTS No Results REASON FOR VISIT 1 MONTH F/U MEDICAL (GENERAL) HISTORY Type Description Date Medical History seasonal allergies Medical History schizoaffective disorder-followed by Dr. Candaa Medical History anxiety Medical History acne Medical History eczema Medical History hypoglycemia Surgical History Removal of cyst around left eye lid Goals Section No Information Health Concerns No Information MEDICAL EQUIPMENT No Information MENTAL STATUS No Information FUNCTIONAL STATUS No Information ASSESSMENTS Encounter Date Diagnosis Assessment Notes Treatment Notes Treatm ent Clinical Notes Mar, Inflammatory acne (ICD-10 - L70.8) Spironolactone risks. Patient counseled about risks of therapy with spironolactone, including frequent urination, unsteadiness, headache, enlarged or painful breasts , irregular menstrual periods, vaginal bleeding in post- menopausal women, hyperkalemia. Patient does not have any underlying kidney disorders. Patient was informed that spironolactone is category C and has the potential for adversely affecting sex differentiation of the male during embryogenesis. 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 Patient counseled about risks of therapy with spironolactone, including frequent urination, unsteadiness, headache, enlarged or painful breasts , irregular menstrual periods, vaginal bleeding in post-menopausal women, hyperkalemia. Patient does not have any underlying kidney disorders. Patient was informed that spironolactone is category C and has the potential for adversely affecting sex differentiation of the male during embryogenesis. Retinoid dermatitis CeraVe PM cream twic e daily full face Next Appt Details 6-8 weeks Acne Reason: Provider Name:Sharmin Montano, 11:00:00 AM, [address] [facility], [address] [facility], [place], [address], Insurance Providers Payer Name Payer Address Payer Phone Insured Name Patient Relati onship to Insured Coverage Start Date Coverage End Date [facility] [address] [facility] [phone] ANTONINA FRANCISCO self
--- OUTSIDE RECORDS SUMMARY | 2020-05-21 17:08 | CCD ---
Author Author [facility] Organization [facility] Address Unknown Phone Unavailable Care Team Providers Care Returns Processor Name Role Phone Sharmin Montano Unavailable PROBLEMS Type Condition ICD9-CM Code [id number] Code Onset Dates Condition S tatus SNOMED Code Notes Problem Schizoaffective disorder 295.70 Active 1909791 3 Problem BMI 26.0-26.9,adult V85.22 Active 736606621 Problem Anxiety 300.00 Active 57266713 Problem Eustachian tube dysfunction 381.81 Active 5671 3002 Problem Vertigo 780.4 Active 237819249 Problem Allergic rhinitis, unspecified seasonality, unspecifie d trigger J30.9 Active 35225918 Problem Acne 706.1 Active 13852050 Problem Atopic dermatitis, unspecified type L20.9 Acti ve 49642377 Problem Depression 311 Active 561673570 Problem Allergic rhinitis 477.9 Active 34234230 Problem Eczema 692.9 Active 24051010 Problem Abnormal laboratory test result R89.9 Active 361314466 Problem Abnormal laboratory test R89.9 Active 6819864 00 ALLERGIES Allergen (clinical drug ingredient) Drug/Non Drug Allergy do cumented on EMR Reaction Allergy Type Onset Date Status tobacco and cigarette smoke throat swelling Non Drug Aller gy Active environmental watery eyes Non Drug Allergy Acti ve ENCOUNTERS from 1985 to 2020-03-02 Encounter Location Date Provider Diagnosis [facility] Dermatology [address] [address] 16 Feb, 2020 Sharmin Montano Inflammatory acne L70.8 and 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 IMMUNIZATIONS Vaccine Route Administration Date Status Influenza (6mo & up) Fluzone Unknown Mar 20, 2017 Oth ers Influenza (6mo & up) Fluzone Unknown August 24, 2014 Ref used SOCIAL HISTORY Sex Assigned At : Social History Observation Description Sex Assigned At Unknown REASON FOR REFERRAL No Information VITAL SIGNS Weight 137.4 lbs Feb, Height 65 in Feb, BMI 22.86 kg/m2 Feb, Blood pressure systolic 122 mm Hg Feb, Blood pressure diastolic 74 mm Hg Feb, MEDICATIONS Medication SIG (Take, Route, Frequency, Duration) Start Date En d Date Status Hydrocortisone 1 % 1 application to affected ar ea Externally Twice a day for 14 day(s) Mar, Not-Taking Tretinoin 0.025 % 1 application in the evening to face Externall y Once a day Active [place] Carbonate 300 mg 2 tabs before bedtime Active Mucinex DM 30-600 MG 1 tablet as needed Orally every 12 hrs for 10 day(s) Mar, Active PredniSONE Active Saphris as directed oral before bedtime Active Flonase 50 MCG/ACT 1 spray in each nostril Nasally Twice a day for 30 day(s) Mar, Active Aczone 5 % 1 application Externally Twice a day for 30 days 2019 Active Sudafed 30 MG 1 tablet as needed Orally every 6 hrs for 5 day(s) Mar, Active LaMICtal ODT 25 MG as directed Orally Not -Taking PROCEDURES No Information RESULTS No Results REASON [...] STATUS No Information ASSESSMENTS Encounter Date Diagnosis Notes Feb, Inflammatory acne (ICD-10 - L70.8) Feb, Retinoid dermatitis (ICD-10 - L30.8) PLAN OF TREATMENT Medication Medication Name Sig Start Date Stop Date Aczone 5 % 1 application Externally Twice a day for 30 days Feb, Treatment Notes Assessment Notes Clinical Notes Inflammatory acne c/w Doxycycline 100m g twice daily, Tretinoin 0.025 cream, Erygel Retinoid dermatitis CeraVe PM cream twic e daily full face Next Appt Details 4-6 weeks Reason:acne F/U Provider Name:Sharmin Montano, 11:00:00 AM, [address] [facility], [address] Floor, [place], [address], Follow Up:4-6 weeksacne F/U Insurance Providers Payer Name Payer Address Payer Phone Insured Name Patient Relati onship to Insured Coverage Start Date Coverage End Date [facility] [address] [facility] [phone] [phone] ANTONINA FRANCISCO self
--- OUTSIDE RECORDS SUMMARY | 2020-05-21 17:08 | CCD | Continuity of Care Document ---
Author Author Amy HOFF NP Organization Unknown Address [address] [place] [address] Phone [phone] Care Team Providers Care Protocol Officer Name Role Phone Rebecca Silvestre RELATIONSHIP COUNSELOR AUTM Problems Active Problems Provider Date Palpitations Dawna Choi MD Onset: 03/02/2019 Toxic diffuse goiter with no crisis Dawna Choi MD Onse t: 03/02/2019 Social History Type Date Description Comments Sex Unknown ETOH Use Never used alcohol Tobacco Use Start: Unknown Patient has never smoked Allergi c Smoking Status Reviewed: 04/05/20 Patient has never smoked Rashad rgic Allergies, Adverse Reactions, Alerts Active Allergies Reaction Severity Comments Date Cigarette Smoke Severe throat swells and bleeds 02/27/2019 Dust 02/27/2019 Seasonal Allergies "everything enviroment al" 02/27/2019 Medications Active Medications SIG Qnty Indications Ordering Provide r Date Levothyroxine Sodium 75mcg Tablets take 1 tablet by mouth once daily 90tabs E89.0 Delia Hoff NP Saphris 2.5mg Tablets Sub 1 p o qh Unknown Claritin 10mg Tablets 1 by mouth every day Unknown [place] Carbonate 300mg Capsules 2 po qd Unknown [place] 0.15-30mg-mcg Tablets 1 po qd Unknown Spironolactone 50mg Tablets 1 tab by mouth a day Unknown History Medications Levothyroxine Sodium 88mcg Tablets 1 by mouth every day 90tabs E89.0 Delia Hoff NP 10/28/2019 - 01/05/2020 Immunizations Description No Information Available Vital Signs Date Vital Result Comment 04/05/2020 2:00pm BP Systolic 110 mmHg BP Diastolic 80 mmHg Heart Rate 76 /min Body Temperature 98.2 F Height 64 inches 5'4" Weight 135.12 lb BMI (Body Mass Index) 23.2 kg/m2 01/05/2020 2:21pm BP Systolic 118 mmHg BP Diastolic 76 mmHg Heart Rate 91 /min Height 64 inches 5'4" Weight 133.50 lb BMI (Body Mass Index) 22.9 kg/m2 O2 % BldC Oximetry 98 % Results Test Acquired Date Facility Test Result H/L Range Note FT4&TSH Panel 03/30/2020 [facility] ntr [address] [place] [address] (315)- - Thyroid Stimulating Hormone 2.490 uIU/ML Normal 0.358- 3.740 Free T4 1.14 ng/dL Normal 0.76-1.46 FT4&TSH Panel 12/31/2019 [facility] ntr [address] [place] [address] (315)- - Thyroid Stimulating Hormone 0.118 uIU/ML Low 0.358- 3.740 Free T4 1.28 ng/dL Normal 0.76-1.46 Laboratory test finding 10/21/2019 [facility] l Cent[facility] [address] [place] [address] (315)- - Thyroid Stimulating Hormone 0.137 uIU/ML Low 0.358- 3.740 Free T4 1.33 ng/dL Normal 0.76-1.46 Procedures Description No Information Available Medical Devices Description No Information Available Encounters Type Date Location Provider Dx Diagnosis Office Visit 04/05/2020 2:15p DR. Dawna Hoff NP E8 9.0 Postprocedural hypothyroidism Office Visit 01/05/2020 2:30p DR. Dawna Hoff NP E8 9.0 Postprocedural hypothyroidism Office Visit 10/28/2019 2:15p DR. Dawna Hoff NP E8 9.0 Postprocedural hypothyroidism Assessments Date Code Description Provider 04/05/2020 E89.0 Postprocedural hypothyroidism Eli Hoff NP 01/05/2020 E89.0 Postprocedural hypothyroidism Eli Hoff NP 10/28/2019 E89.0 Postprocedural hypothyroidism Eli Hoff NP Plan of Treatment Future Appointment(s):* 08/04/2020 2:15 pm - Delia Hoff NP at DR. Dawna Choi 04/05/2020 - Delia Hoff NP* E89.0 Postprocedural hypothyroidism* New Labs: * FT4&TSH Panel, Scheduled: 08/04/20 * Comments:* Graves' disease- elected to have radioactive iodine- done 04/21/19. Pt became Hypothyroid. Labs done 06/15/2019- TSH= 9.100, FT4= 0.56 Was started on Levothyroxine 125mcg po qd.- reviewed proper administration. Labs done 08/18/2019- TSH= 0.041, FT4= 1.58- unstableDose decreased to Levothyroxine 100mcg po qd. Labs done 10/21/2019- TSH= 0.137, FT4= 1.33Hair loss, acne, weight loss, increased anxiety and stress. Occasional palpitation. Dose decreased to Levothyroxine 88mcg po qd. Labs done 12/31/2019- TSH= 0.118, Ft4= 1.28Dose decreased Levothyroxine 75mcg po qd. Labs done 03/30/2020- TSH= 2.490, FT4= 1.14- Manishall recheck in 4 months * Follow up:* RTO 4 months MJ Functional Status Description No Information Available Mental Status Description No Information Available Referrals Description No Information Available
--- OUTSIDE RECORDS SUMMARY | 2020-05-21 17:08 | CCD | Continuity of Care Document ---
Author Author Amy FREEMAN [facility] Organization Unknown Address [facility] [address] [place] [address] Phone [phone] Care Team Providers Care Machine Filler Shredder Name Role Phone [facility] AUTM [phone] AUTM Unavailable Problems Active Problems Provider Date [...] 30tabs F31.78 Brady Canada MD 11/26/2017 [place] Carbonate 300mg Capsules 2 caps by mouth [...] Test Result H/L Range Note Hgba1c 10/21/2019 [facility] Hemoglobin A1c 4.9 % Normal 1 Estimated Average Glucose 94 mg/dL Normal 60-110 Cve Panel 10/21/2019 [facility] Triglycerides Level 113 mg/dL Normal <150 Cholesterol Level 169 mg/dL Normal <200 HDL Cholesterol 44 mg/dL Normal >40 LDL Cholesterol 102 mg/dL High <100 Non-HDL-C 125 mg/dL Normal Cholesterol Risk Ratio 3.840 Normal <5 Laboratory test finding 10/21/2019 [facility] [place] Level 0.61 mEq/L Normal 0.60-1.20 Thyroid Stimulating Hormone 0.140 uIU/ML Low 0.358-3.740 Comprehensive Metabolic Profil 10/21/2019 [facility] Glucose, Fasting 84 mg/dL Normal 70-100 Blood [...] Little GFR Left ESRD GFR <15 on SECOND RIGGER Procedures Description No Information Available Medical Devices Description No Information Available Encounters Description No Information Available Assessments Date Code Description Provider 03/25/2020 F31.9 Bipolar disorder, unspecified Th ea [place], [facility] 03/25/2020 Z79.899 Other representative (current) drug t herapy Iesha Aditi, [facility] 03/11/2020 F31.9 Bipolar disorder, unspecified Th ea [place], [facility] 03/11/2020 Z79.899 Other representative (current) drug t herapy Iesha [place], [facility] 02/26/2020 F31.9 Bipolar disorder, unspecified Th ea Aditi, [facility] 02/26/2020 Z79.899 Other correction (current) drug t herapy Iesha [place], [facility] 02/05/2020 F31.9 Bipolar disorder, unspecified Th ea [place], [facility] 02/05/2020 Z79.899 Other representative (current) drug t herapy Iesha Aditi, [facility] 01/22/2020 F31.9 Bipolar disorder, unspecified Th ea [place], [facility] 01/22/2020 Z79.899 Other representative (current) drug t herapy Iesha Aditi, [facility] 01/07/2020 F31.9 Bipolar disorder, unspecified Th ea Aditi, [facility] 01/07/2020 F31.9 Bipolar disorder, unspecified Ca olegario Porter PA-C 01/07/2020 Z79.899 Other correction (current) drug t herapy Iesha [place], [facility] 01/07/2020 Z79.899 Other correction (current) drug t herapy Zach Porter PA-C 12/24/2019 F31.9 Bipolar disorder, unspecified Th ea [place], [facility] 12/24/2019 Z79.899 Other representative (current) drug t herapy Iesha Aditi, [facility] 12/10/2019 F31.9 Bipolar disorder, unspecified Th ea Aditi, [facility] 12/10/2019 Z79.899 Other correction (current) drug t herapy Iesha Aditi, [facility] 11/26/2019 F31.9 Bipolar disorder, unspecified Th ea Aditi, [facility] 11/26/2019 Z79.899 Other representative (current) drug t herapy Iesha [place], [facility] 11/09/2019 F31.9 Bipolar disorder, unspecified Th ea [place]iti, [facility] 11/09/2019 Z79.899 Other correction (current) drug t herapy Iesha [place], [facility] 10/26/2019 F31.9 Bipolar disorder, unspecified Th ea [place], [facility] 10/26/2019 Z79.899 Other representative (current) drug t herapy Iesha Aditi, [facility] 10/15/2019 F31.9 Bipolar disorder, unspecified Th ea [place], [facility] 10/15/2019 Z79.899 Other correction (current) drug t herapy Iesha [place], [facility] 10/05/2019 F31.9 Bipolar disorder, unspecified Ca olegario Porter PA-C 10/05/2019 Z79.899 Other representative (current) drug t herapy Zach Porter PA-C Plan of Treatment Future Appointment(s):* 04/22/2020 2:00 pm - Iesha BRENDAN Freeman at [facility] * 04/08/2020 2:00 pm - Iesha BRENDAN Freeman at [facility] * 04/08/2020 1:00 pm - Zach Porter PA-C at [facility] Functional Status Description No Information Available Mental Status Description No Information Available Referrals Description No Information Available
--- OUTSIDE RECORDS SUMMARY | 2020-05-21 17:08 | CCD | Continuity of Care Document ---
Author Author Amy HOFF NP Organization Unknown Address [address] [place] [address] Phone [phone] Care Team Providers Care Roof Truss Builder Name Role Phone Rebecca Silvestre BOW MAKER MACHINE TENDER AUTM Problems Active Problems Provider Date Palpitations Dawna Choi MD Onset: 03/02/2019 Toxic diffuse goiter with no crisis Dawna Choi MD Onse t: 03/02/2019 Social History Type Date Description Comments Sex Unknown ETOH Use Never used alcohol Tobacco Use Start: Unknown Patient has never smoked Allergi c Smoking Status Reviewed: 01/05/20 Patient has never smoked Rashad rgic Allergies, Adverse Reactions, Alerts Active Allergies Reaction Severity Comments Date Cigarette Smoke Severe throat swells and bleeds 02/27/2019 Dust 02/27/2019 Seasonal Allergies "everything enviroment al" 02/27/2019 Medications Active Medications SIG Qnty Indications Ordering Provide r Date Levothyroxine Sodium 75mcg Tablets Take 1 tablet by mouth once daily 30tabs E89.0 Delia Hoff NP Saphris 2.5mg Tablets Sub 1 p o qh Unknown Claritin 10mg Tablets 1 by mouth every day Unknown [place] Carbonate 300mg Capsules 2 po qd Unknown Kurvelo 0.15-30mg-mcg Tablets 1 po qd Unknown History Medications Levothyroxine Sodium 88mcg Tablets 1 by mouth every day 90tabs E89.0 Delia Hoff NP 10/28/2019 - 01/05/2020 Immunizations Description No Information Available Vital Signs Date Vital Result Comment 01/05/2020 2:21pm BP Systolic 118 mmHg BP Diastolic 76 mmHg Heart Rate 91 /min Height 64 inches 5'4" Weight 133.50 lb BMI (Body Mass Index) 22.9 kg/m2 O2 % BldC Oximetry 98 % 10/28/2019 2:03pm BP Systolic 139 mmHg BP Diastolic 76 mmHg Heart Rate 81 /min Height 64 inches 5'4" Weight 137.00 lb BMI (Body Mass Index) 23.5 kg/m2 O2 % BldC Oximetry 99 % Results Test Acquired Date Facility Test Result H/L Range Note FT4&TSH Panel 03/30/2020 [facility] [address] [place] [address] (315)- - Thyroid Stimulating Hormone 2.490 uIU/ML Normal 0.358- 3.740 Free T4 1.14 ng/dL Normal 0.76-1.46 FT4&TSH Panel 12/31/2019 [facility] [address] [place] [address] (315)- - Thyroid Stimulating Hormone 0.118 uIU/ML Low 0.358- 3.740 Free T4 1.28 ng/dL Normal 0.76-1.46 Laboratory test finding 10/21/2019 [facility] [address] [place] [address] (315)- - Thyroid Stimulating Hormone 0.137 uIU/ML Low 0.358- 3.740 Free T4 1.33 ng/dL Normal 0.76-1.46 Procedures Description No Information Available Medical Devices Description No Information Available Encounters Type Date Location Provider Dx Diagnosis Office Visit 01/05/2020 2:30p DR. Dawna Hoff NP E8 9.0 Postprocedural hypothyroidism Office Visit 10/28/2019 2:15p DR. Dawna Hoff NP E8 9.0 Postprocedural hypothyroidism Assessments Date Code Description Provider 01/05/2020 E89.0 Postprocedural hypothyroidism Eli Hoff NP 10/28/2019 E89.0 Postprocedural hypothyroidism Eli Hoff NP Plan of Treatment Future Appointment(s):* 04/05/2020 2:15 pm - Delia Hoff NP at DR. Dawna Choi 01/05/2020 - Delia Hoff NP* E89.0 Postprocedural hypothyroidism* New Medication:* Levothyroxine Sodium 75 mcg - Take 1 tablet by mouth once daily * Comments:* Graves' disease- elected to have [...] qd. Labs done 12/31/2019- TSH= 0.118, Ft4= 1.28Will decrease Levothyroxine 75mcg po qd. Will recheck in 3 months * Follow up:* RTO 3 months MJ Functional Status Description No Information Available Mental Status Description No Information Available Referrals Description No Information Available
--- OUTSIDE RECORDS SUMMARY | 2020-05-21 17:08 | CCD | Continuity of Care Document ---
Author Author Amy FREEMAN [facility] Organization Unknown Address [facility] [address] [place] [address] Phone [phone] Care Team Providers Care Chairlift Operator Name Role Phone [facility] AUTM AUTM Unavailable Problems Active Problems [...] hours 30tabs F31.78 Brady Canada MD 11/26/2017 [place] Carbonate 300mg Capsules 2 caps by mouth [...] Test Result H/L Range Note Hgba1c 10/21/2019 [facility] Hemoglobin A1c 4.9 % Normal 1 Estimated Average Glucose 94 mg/dL Normal 60-110 Cve Panel 10/21/2019 [facility] Triglycerides Level 113 mg/dL Normal <150 Cholesterol Level 169 mg/dL Normal <200 HDL Cholesterol 44 mg/dL Normal >40 LDL Cholesterol 102 mg/dL High <100 Non-HDL-C 125 mg/dL Normal Cholesterol Risk Ratio 3.840 Normal <5 Laboratory test finding 10/21/2019 [facility] [place] Level 0.61 mEq/L Normal 0.60-1.20 Thyroid Stimulating Hormone 0.140 uIU/ML Low 0.358-3.740 Comprehensive Metabolic Profil 10/21/2019 [facility] Glucose, Fasting 84 mg/dL Normal 70-100 Blood [...] Little GFR Left ESRD GFR <15 on AUDIO TAPE LIBRARIAN Procedures Description No Information Available Medical Devices Description No Information Available Encounters Description No Information Available Assessments Date Code Description Provider 02/26/2020 F31.9 Bipolar disorder, unspecified Th ea [place], [facility] 02/26/2020 Z79.899 Other terminologist (current) drug t herapy Iesha Aditi, [facility] 02/05/2020 F31.9 Bipolar disorder, unspecified Th ea [place], [facility] 02/05/2020 Z79.899 Other terminologist (current) drug t herapy Iesha [place], [facility] 01/22/2020 F31.9 Bipolar disorder, unspecified Th ea [place], [facility] 01/22/2020 Z79.899 Other longterm (current) drug t herapy Iesha [place], [facility] 01/07/2020 F31.9 Bipolar disorder, unspecified Th ea [place], [facility] 01/07/2020 F31.9 Bipolar disorder, unspecified Ca olegario Porter PA-C 01/07/2020 Z79.899 Other longterm (current) drug t herapy Iesha [place], [facility] 01/07/2020 Z79.899 Other terminologist (current) drug t herapy Zach Porter PA-C 12/24/2019 F31.9 Bipolar disorder, unspecified Th ea [place], [facility] 12/24/2019 Z79.899 Other longterm (current) drug t herapy Iesha [place], [facility] 12/10/2019 F31.9 Bipolar disorder, unspecified Th ea [place], [facility] 12/10/2019 Z79.899 Other longterm (current) drug t herapy Iesha Aditi, [facility] 11/26/2019 F31.9 Bipolar disorder, unspecified Th ea [place], [facility] 11/26/2019 Z79.899 Other terminologist (current) drug t herapy Iesha [place], [facility] 11/09/2019 F31.9 Bipolar disorder, unspecified Th ea [place], [facility] 11/09/2019 Z79.899 Other longterm (current) drug t herapy Iesha Aditi, [facility] 10/26/2019 F31.9 Bipolar disorder, unspecified Th ea [place], [facility] 10/26/2019 Z79.899 Other terminologist (current) drug t herapy Iesha [place], [facility] 10/15/2019 F31.9 Bipolar disorder, unspecified Th ea [place], [facility] 10/15/2019 Z79.899 Other terminologist (current) drug t herapy Iseha Aditi, [facility] 10/05/2019 F31.9 Bipolar disorder, unspecified Ca olegario Porter PA-C 10/05/2019 Z79.899 Other longterm (current) drug t herapy Zach Porter PA-C 09/15/2019 F31.9 Bipolar disorder, unspecified Th ea [place], [facility] 09/15/2019 Z79.899 Other terminologist (current) drug t herapy Iesha BRENDAN Freeman Plan of Treatment Future Appointment(s):* 04/22/2020 2:00 pm - BRENDAN Kenny at [facility] * 04/08/2020 2:00 pm - BRENDAN Kenny at [facility] * 03/25/2020 9:00 am - BRENDAN Kenny at [facility] * 04/08/2020 1:00 pm - Zach Porter PA-C at [facility] Functional Status Description No Information Available Mental Status Description No Information Available Referrals Description No Information Available
[2020-05-21 17:17] LABS: BASO # 0.1 10^3/uL (0.0-0.2); HEMATOCRIT 41.6 % (36.0-47.0); HEMOGLOBIN 13.8 g/dl (12.0-15.5); LYMPH # 1.7 10^3/uL (1.5-5.0); LYMPH % 21.6 % (24.0-44.0); MEAN CORPUSCULAR HEMOGLOBIN 31.4 pg (27.0-33.0); MEAN CORPUSCULAR HGB CONC 33.2 g/dl (32.0-36.5); MEAN CORPUSCULAR VOLUME 94.5 fl (80.0-96.0); MONO # 0.4 10^3/uL (0.0-0.8); MONO % 4.6 % (0.0-5.0); NEUTROPHILS # 5.7 10^3/uL (1.5-8.5); NEUTROPHILS % 72.3 % (36.0-66.0); PLATELET COUNT, AUTOMATED 248 10^3/uL (150-450); WHITE BLOOD COUNT 7.8 10^3/uL (4.0-10.0)
[2020-05-21] MEDS ORDERED: ISOVUE-370 76% 100ML VIAL As Ordered ONE (17:33)
[2020-05-21 18:14] LABS: ALBUMIN 4.1 GM/DL (3.2-5.2); BILIRUBIN,DIRECT 0.1 MG/DL (0.0-0.2); BILIRUBIN,TOTAL 0.3 MG/DL (0.2-1.0); TOTAL PROTEIN 7.5 GM/DL (6.4-8.2)
--- NOTE | 2020-05-21 18:29 | REPVR ---
PROCEDURE INFORMATION: Exam: CT Abdomen And Pelvis With Contrast Exam date and time: 05/21/2020 5:45 PM Age: 34 years old Clinical indication: Abdominal pain; Localized; Right lower quadrant (rlq); Additional info: Rlq pain TECHNIQUE: Imaging protocol: Computed tomography of the abdomen and pelvis with intravenous contrast. Radiation optimization: All CT scans at this facility use at least one of these dose optimization techniques: automated exposure control; mA and/or kV adjustment per patient size (includes targeted exams where dose is matched to clinical indication); or iterative reconstruction. Contrast material: ISOVUE 370; Contrast volume: 100 ml; Contrast route: INTRAVENOUS (IV); COMPARISON: US PELVIC NON OB COMPLETE 11/23/2015 3:10 PM FINDINGS: Liver: Normal. No mass. Gallbladder and bile ducts: Normal. No calcified stones. No ductal dilation. Pancreas: Normal. No ductal dilation. Spleen: Normal. No splenomegaly. Adrenal glands: Normal. No mass. Kidneys and ureters: Normal. No hydronephrosis. Stomach and bowel: Unremarkable. No obstruction. No mucosal thickening. Appendix: No evidence of appendicitis. Intraperitoneal space: Unremarkable. No free air. No significant fluid collection. Vasculature: Unremarkable. No abdominal aortic aneurysm. Lymph nodes: Unremarkable. No enlarged lymph nodes. Urinary bladder: Unremarkable as visualized. Reproductive: Unremarkable as visualized. Bones/joints: Unremarkable. No acute fracture. Soft tissues: Unremarkable. IMPRESSION: No acute findings. Electronically signed by: Hunter Stephen On 05/21/2020 18:28:44 PM
[2020-05-21] MEDS ORDERED: MIRA3350 PO (18:38)
[2020-05-21 18:47] VITALS: BP 133/70
== END 2020-05-21 18:50 | disposition home or self-care (01) ==
LOC: M ED 16:25
DX: K59.00 Constipation, unspecified (principal); Z79.899 Other long term (current) drug therapy
CPT/HCPCS: 36415; 74177; 80047; 80076; 81001; 83690; 84702; 85025; 87086; 99284; Q9967

== ENCOUNTER → 2020-07-20 | Outpatient (CLI) | payer OTHER ==
[2020-07-20 20:17] LABS: FREE T4 0.99 NG/DL (0.76-1.46); THYROID STIMULATING HORMONE 3.84 uIU/ML (0.358-3.740)
== END ==
LOC: M WUC 15:04
PROVIDERS: ATTEND Nurse Practitioner Family
DX: E89.0 Postprocedural hypothyroidism (principal)

== ENCOUNTER → 2020-07-27 | Outpatient (REF) | payer OTHER ==
[2020-07-27 17:52] LABS: APPEARANCE, URINE HAZY (CLEAR); BACTERIA, URINE AUTO 1+ (NEGATIVE); BILIRUBIN, URINE AUTO NEGATIVE (NEGATIVE); BLOOD, URINE BLOOD 1+ (NEGATIVE); COLOR, URINE STRAW (YELLOW); GLUCOSE, URINE (UA) AUTO NEGATIVE (NEGATIVE); KETONE, URINE AUTO NEGATIVE (NEGATIVE); LEUKOCYTE ESTERASE, URINE AUTO 1+ (NEGATIVE); NITRITE, URINE AUTO NEGATIVE (NEGATIVE); PROTEIN, URINE AUTO NEGATIVE (NEGATIVE); RBC, URINE AUTO 1 /HPF (0-3); SPECIFIC GRAVITY URINE AUTO 1.008 (1.002-1.035); SQUAMOUS EPITHELIAL CELL UR AU 2 /HPF (0-6); UROBILINOGEN, URINE AUTO 0.2 mg/dL (0.0-2.0); WBC, URINE AUTO 1 /HPF (0-3)
== END ==
LOC: M LAB REF 16:23
PROVIDERS: ATTEND Nurse Practitioner Family
DX: R30.9 Painful micturition, unspecified (principal)

== ENCOUNTER → 2021-04-19 | Outpatient (REF) | LOC: M LABSMTC 10:06 | PROVIDERS: ATTEND Pediatrics | DX: Z20.828 Contact with and (suspected) exposure to other viral communicable diseases (principal) ==

== ENCOUNTER → 2021-06-13 | Outpatient (CLI) | payer OTHER ==
[2021-06-13 16:53] LABS: FREE T4 1.07 NG/DL (0.76-1.46); THYROID STIMULATING HORMONE 0.922 uIU/ML (0.358-3.740)
== END ==
LOC: M WUC 13:49
PROVIDERS: ATTEND Nurse Practitioner Family
DX: E89.0 Postprocedural hypothyroidism (principal)

== ENCOUNTER → 2021-07-22 | Outpatient (CLI) | payer OTHER ==
[2021-07-22 14:54] LABS: HEMATOCRIT 39.8 % (36.0-47.0); HEMOGLOBIN 13.1 g/dl (12.0-15.5); MEAN CORPUSCULAR HEMOGLOBIN 30.8 pg (27.0-33.0); MEAN CORPUSCULAR HGB CONC 32.9 g/dl (32.0-36.5); MEAN CORPUSCULAR VOLUME 93.6 fl (80.0-96.0); PLATELET COUNT, AUTOMATED 256 10^3/uL (150-450); RED BLOOD COUNT 4.25 10^6/uL (4.00-5.40); WHITE BLOOD COUNT 7.8 10^3/uL (4.0-10.0)
[2021-07-22 15:21] LABS: ALBUMIN 3.8 GM/DL (3.2-5.2); ALT/SGPT 22 U/L (12-78); BILIRUBIN,TOTAL 0.4 MG/DL (0.2-1.0); BLOOD UREA NITROGEN 11 MG/DL (7-18); CALCIUM LEVEL 9.4 MG/DL (8.5-10.1); CARBON DIOXIDE LEVEL 29 MEQ/L (21-32); CHLORIDE LEVEL 107 MEQ/L (98-107); CHOLESTEROL LEVEL 184 MG/DL (<200); CHOLESTEROL RISK RATIO 3.228 (<5); GLOMERULAR FILTRATION RATE > 60.0 (>60); GLUCOSE, FASTING 84 MG/DL (70-100); HDL CHOLESTEROL 57 MG/DL (>40); LDL CHOLESTEROL 101 MG/DL (<100); NON-HDL-C 127 MG/DL; POTASSIUM SERUM 4.3 MEQ/L (3.5-5.1); SODIUM LEVEL 141 MEQ/L (136-145); TOTAL PROTEIN 7.1 GM/DL (6.4-8.2); TRIGLYCERIDES LEVEL 132 MG/DL (<150)
== END ==
LOC: M LAB 14:26
PROVIDERS: ATTEND Physician Assistant
DX: L70.8 Other acne (principal)

== ENCOUNTER → 2021-10-27 | Outpatient (REF) | payer OTHER ==
[2021-10-27 16:33] LABS: ALBUMIN 3.4 GM/DL (3.2-5.2); ALT/SGPT 16 U/L (12-78); BILIRUBIN,TOTAL 0.2 MG/DL (0.2-1.0); BLOOD UREA NITROGEN 9 MG/DL (7-18); CALCIUM LEVEL 8.8 MG/DL (8.5-10.1); CARBON DIOXIDE LEVEL 28 MEQ/L (21-32); CHLORIDE LEVEL 109 MEQ/L (98-107); CHOLESTEROL LEVEL 204 MG/DL (<200); CREATININE FOR GFR 0.91 MG/DL (0.55-1.30); GLOMERULAR FILTRATION RATE > 60.0 (>60); GLUCOSE, FASTING 79 MG/DL (70-100); HDL CHOLESTEROL 66 MG/DL (>40); LDL CHOLESTEROL 122 MG/DL (<100); NON-HDL-C 138 MG/DL; POTASSIUM SERUM 4.4 MEQ/L (3.5-5.1); SODIUM LEVEL 141 MEQ/L (136-145); TOTAL PROTEIN 6.8 GM/DL (6.4-8.2); TRIGLYCERIDES LEVEL 81 MG/DL (<150)
== END ==
LOC: M WUC 13:55
PROVIDERS: ATTEND Physician Assistant
DX: Z79.899 Other long term (current) drug therapy (principal)

== ENCOUNTER → 2021-10-27 | Outpatient (REF) | payer OTHER ==
[2021-10-27 16:39] LABS: FREE T4 0.94 NG/DL (0.76-1.46); THYROID STIMULATING HORMONE 3.01 uIU/ML (0.358-3.740)
== END ==
LOC: M WUC 13:53
PROVIDERS: ATTEND Nurse Practitioner Family
DX: E89.0 Postprocedural hypothyroidism (principal)

== ENCOUNTER → 2022-02-07 | Outpatient (CLI) | payer OTHER ==
[2022-02-07 20:28] LABS: FREE T4 0.86 NG/DL (0.76-1.46); THYROID STIMULATING HORMONE 0.303 uIU/ML (0.358-3.740)
== END ==
LOC: M WUC 15:20
PROVIDERS: ATTEND Nurse Practitioner Family
DX: E89.0 Postprocedural hypothyroidism (principal)

== ENCOUNTER → 2022-03-05 | Outpatient (CLI) | payer OTHER ==
[2022-03-05 16:50] LABS: BASO # 0.1 10^3/uL (0.0-0.2); BASO % 1.1 % (0.0-1.0); EOS # 0.1 10^3/uL (0.0-0.5); EOS % 1.1 % (0.0-3.0); HEMATOCRIT 39.7 % (36.0-47.0); HEMOGLOBIN 12.4 g/dl (12.0-15.5); LYMPH # 1.3 10^3/uL (1.5-5.0); LYMPH % 28.8 % (24.0-44.0); MEAN CORPUSCULAR HEMOGLOBIN 30.7 pg (27.0-33.0); MEAN CORPUSCULAR HGB CONC 31.2 g/dl (32.0-36.5); MEAN CORPUSCULAR VOLUME 98.3 fl (80.0-96.0); MONO # 0.3 10^3/uL (0.0-0.8); MONO % 6.7 % (2.0-8.0); NEUTROPHILS # 2.9 10^3/uL (1.5-8.5); NEUTROPHILS % 61.4 % (36.0-66.0); PLATELET COUNT, AUTOMATED 242 10^3/uL (150-450); RED BLOOD COUNT 4.04 10^6/uL (4.00-5.40); WHITE BLOOD COUNT 4.7 10^3/uL (4.0-10.0)
[2022-03-05 17:51] LABS: ALBUMIN 3.4 GM/DL (3.2-5.2); ALT/SGPT 18 U/L (12-78); BILIRUBIN,DIRECT 0.1 MG/DL (0.0-0.2); BILIRUBIN,TOTAL 0.3 MG/DL (0.2-1.0); BLOOD UREA NITROGEN 9 MG/DL (7-18); CALCIUM LEVEL 9.2 MG/DL (8.5-10.1); CARBON DIOXIDE LEVEL 26 MEQ/L (21-32); CHLORIDE LEVEL 109 MEQ/L (98-107); CHOLESTEROL LEVEL 172 MG/DL (<200); CHOLESTEROL RISK RATIO 2.606 (<5); CREATININE FOR GFR 0.89 MG/DL (0.55-1.30); GLOMERULAR FILTRATION RATE > 60.0 (>60); GLUCOSE, FASTING 89 MG/DL (70-100); GLUCOSE,RANDOM 89 MG/DL (LESS THAN 200); HDL CHOLESTEROL 66 MG/DL (>40); LDL CHOLESTEROL 92 MG/DL (<100); LITHIUM LEVEL 0.56 MEQ/L (0.60-1.20); NON-HDL-C 106 MG/DL; PHOSPHORUS LEVEL 2.6 MG/DL (2.5-4.9); POTASSIUM SERUM 4.3 MEQ/L (3.5-5.1); SODIUM LEVEL 139 MEQ/L (136-145); TOTAL PROTEIN 6.6 GM/DL (6.4-8.2); TRIGLYCERIDES LEVEL 71 MG/DL (<150)
[2022-03-05 18:04] LABS: HEMOGLOBIN A1c 4.9 %
[2022-03-05 18:25] LABS: TOTAL 25(OH) VITAMIN D 30.7 NG/ML (30.0-100.0)
== END ==
LOC: M WUC 13:27
PROVIDERS: ATTEND Registered Nurse
DX: F39 Unspecified mood [affective] disorder (principal)

== ENCOUNTER → 2022-03-12 | Outpatient (REF) | payer OTHER, MEDICAID ==
[2022-03-12 17:32] LABS: BASO % 0.6 % (0.0-1.0); HEMATOCRIT 39.2 % (36.0-47.0); HEMOGLOBIN 12.7 g/dl (12.0-15.5); LYMPH # 1.8 10^3/uL (1.5-5.0); LYMPH % 35.8 % (24.0-44.0); MEAN CORPUSCULAR HEMOGLOBIN 30.9 pg (27.0-33.0); MEAN CORPUSCULAR HGB CONC 32.4 g/dl (32.0-36.5); MEAN CORPUSCULAR VOLUME 95.4 fl (80.0-96.0); MONO # 0.4 10^3/uL (0.0-0.8); MONO % 7.6 % (2.0-8.0); NEUTROPHILS # 2.8 10^3/uL (1.5-8.5); NEUTROPHILS % 55.8 % (36.0-66.0); PLATELET COUNT, AUTOMATED 240 10^3/uL (150-450); RED BLOOD COUNT 4.11 10^6/uL (4.00-5.40)
[2022-03-12 18:50] LABS: ALBUMIN 3.4 GM/DL (3.2-5.2); ALT/SGPT 17 U/L (12-78); BILIRUBIN,TOTAL 0.4 MG/DL (0.2-1.0); BLOOD UREA NITROGEN 9 MG/DL (7-18); CARBON DIOXIDE LEVEL 26 MEQ/L (21-32); CHLORIDE LEVEL 108 MEQ/L (98-107); CHOLESTEROL LEVEL 183 MG/DL (<200); CHOLESTEROL RISK RATIO 2.859 (<5); CREATININE FOR GFR 0.81 MG/DL (0.55-1.30); GLOMERULAR FILTRATION RATE > 60.0 (>60); GLUCOSE, FASTING 80 MG/DL (70-100); HDL CHOLESTEROL 64 MG/DL (>40); LDL CHOLESTEROL 97 MG/DL (<100); NON-HDL-C 119 MG/DL; POTASSIUM SERUM 4.5 MEQ/L (3.5-5.1); SODIUM LEVEL 139 MEQ/L (136-145); TOTAL PROTEIN 6.5 GM/DL (6.4-8.2); TRIGLYCERIDES LEVEL 112 MG/DL (<150)
[2022-03-12 19:23] LABS: TOTAL 25(OH) VITAMIN D 33.6 NG/ML (30.0-100.0)
[2022-03-14 02:43] LABS: HEMOGLOBIN A1c 4.8 %
== END ==
LOC: M LAB REF 16:21
PROVIDERS: ATTEND Nurse Practitioner Family
DX: Z68.23 Body mass index [BMI] 23.0-23.9, adult (principal)

== ENCOUNTER 2022-05-30 16:32 | Emergency (ER) | payer MEDICAID, OTHER ==
[~2022-05-30] VITALS: Ht 165.1 cm; Wt 60.8 kg
[2022-05-30] MEDS ORDERED: SPRI28TA PO (16:39)
[2022-05-30] MEDS ORDERED: LEVO88TA3 PO (16:39)
[2022-05-30] MEDS ORDERED: LORA-674 PO (16:39)
[2022-05-30] MEDS ORDERED: SERO200T PO (16:39)
[2022-05-30 17:35] LABS: BASO % 0.5 % (0.0-1.0); HEMATOCRIT 41.1 % (36.0-47.0); HEMOGLOBIN 13.5 g/dl (12.0-15.5); LYMPH # 1.7 10^3/uL (1.5-5.0); LYMPH % 26.2 % (24.0-44.0); MEAN CORPUSCULAR HEMOGLOBIN 30.3 pg (27.0-33.0); MEAN CORPUSCULAR HGB CONC 32.8 g/dl (32.0-36.5); MEAN CORPUSCULAR VOLUME 92.2 fl (80.0-96.0); MONO # 0.3 10^3/uL (0.0-0.8); MONO % 5.1 % (2.0-8.0); NEUTROPHILS # 4.4 10^3/uL (1.5-8.5); NEUTROPHILS % 67.7 % (36.0-66.0); PLATELET COUNT, AUTOMATED 323 10^3/uL (150-450); RED BLOOD COUNT 4.46 10^6/uL (4.00-5.40); WHITE BLOOD COUNT 6.4 10^3/uL (4.0-10.0)
[2022-05-30 17:57] LABS: LIPASE 41 U/L (12-53)
[2022-05-30 17:59] LABS: ALBUMIN 4.3 G/DL (3.2-5.2); ALKALINE PHOSPHATASE 79 U/L (46-116); ALT/SGPT 19 U/L (7.0-40); AMYLASE 55 U/L (30-118); AST/SGOT 19 U/L (<34); BILIRUBIN,TOTAL 0.6 MG/DL (0.3-1.2); BLOOD UREA NITROGEN 7 MG/DL (9-23); CALCIUM LEVEL 9.7 MG/DL (8.5-10.1); CARBON DIOXIDE LEVEL 22 MMOL/L (20-31); CHLORIDE LEVEL 104 MMOL/L (98-107); CREATININE FOR GFR 0.86 MG/DL (0.55-1.30); GLOMERULAR FILTRATION RATE > 60.0 (>60); GLUCOSE, FASTING 82 MG/DL (60-100); POTASSIUM SERUM 4.3 MMOL/L (3.5-5.1); SODIUM LEVEL 138 MMOL/L (136-145); TOTAL PROTEIN 7.9 G/DL (5.7-8.2)
[2022-05-30 18:08] LABS: HCG, SERUM QUALITATIVE NEGATIVE (NEGATIVE)
[2022-05-30] MEDS ORDERED: ISOVUE-370 76% 100ML VIAL As Ordered ONE (21:32)
[2022-05-30 21:47] LABS: THYROID STIMULATING HORMONE 1.224 uIU/ML (0.55-4.78)
[2022-05-30] MEDS ORDERED: REGL5TAB2 PO (22:28)
[2022-05-30 22:43] VITALS: BP 108/76
== END 2022-05-30 22:46 | disposition home or self-care (01) ==
LOC: M ED 16:32
DX: K59.00 Constipation, unspecified (principal); N83.201 Unspecified ovarian cyst, right side; E05.00 Thyrotoxicosis with diffuse goiter without thyrotoxic crisis or storm; Z79.890 Hormone replacement therapy; Z79.899 Other long term (current) drug therapy

== ENCOUNTER → 2022-07-12 | Outpatient (CLI) | payer MEDICAID, OTHER ==
[~2022-07-12] MED LIST changes: +LEVO88TA3 PO; +LORA-674 PO; +PRAZ1CAP PO; +REGL5TAB2 PO; +SERO200T PO; +SPRI28TA PO
== END ==
LOC: M LABSMTC 09:32
PROVIDERS: ATTEND Anesthesiology
DX: Z01.812 Encounter for preprocedural laboratory examination (principal); Z20.822 Contact with and (suspected) exposure to COVID-19

== ENCOUNTER 2022-07-17 07:09 | Day surgery (SDC) | payer OTHER ==
[~2022-07-17] VITALS: Ht 165.1 cm; Wt 59.1 kg
[~2022-07-17 07:09] MED LIST changes: +NS 1,000 ML IV ONE
[2022-07-17] MEDS ORDERED: propofoL 200 MG/20 ML VIAL As Ordered ONE ×2 (08:55→09:06)
[2022-07-17] MEDS ORDERED: LIDOCAINE 2% 100MG/5ML SDV (FOR ANES.) As Ordered ONE (08:55)
[2022-07-17 09:34] VITALS: BP 118/78
== END 2022-07-17 09:59 | disposition home or self-care (01) ==
LOC: M OPP 07:09
PROVIDERS: ATTEND Internal Medicine Gastroenterology
DX: D12.6 Benign neoplasm of colon, unspecified (principal); K64.4 Residual hemorrhoidal skin tags; K64.8 Other hemorrhoids; K59.00 Constipation, unspecified; E03.9 Hypothyroidism, unspecified; F41.9 Anxiety disorder, unspecified; F32.9 Major depressive disorder, single episode, unspecified; G43.909 Migraine, unspecified, not intractable, without status migrainosus; Z79.3 Long term (current) use of hormonal contraceptives; Z79.890 Hormone replacement therapy; Z79.899 Other long term (current) drug therapy; Z86.39 Personal history of other endocrine, nutritional and metabolic disease

== ENCOUNTER → 2022-09-21 | Outpatient (CLI) | payer OTHER ==
[~2022-09-21] MED LIST changes: -NS 1,000 ML IV ONE
[2022-09-21 17:59] LABS: HEMOGLOBIN A1c 4.6 % (4.0-6.0)
[2022-09-21 18:00] LABS: BASO # 0.1 10^3/uL (0.0-0.2); BASO % 0.9 % (0.0-1.0); HEMATOCRIT 40.4 % (36.0-47.0); HEMOGLOBIN 12.8 g/dl (12.0-15.5); LYMPH # 1.4 10^3/uL (1.5-5.0); LYMPH % 24.9 % (24.0-44.0); MEAN CORPUSCULAR HEMOGLOBIN 30.4 pg (27.0-33.0); MEAN CORPUSCULAR HGB CONC 31.7 g/dl (32.0-36.5); MONO # 0.4 10^3/uL (0.0-0.8); MONO % 7.5 % (2.0-8.0); NEUTROPHILS # 3.8 10^3/uL (1.5-8.5); NEUTROPHILS % 66.3 % (36.0-66.0); PLATELET COUNT, AUTOMATED 278 10^3/uL (150-450); RED BLOOD COUNT 4.21 10^6/uL (4.00-5.40); WHITE BLOOD COUNT 5.7 10^3/uL (4.0-10.0)
[2022-09-21 18:18] LABS: ALBUMIN 3.7 G/DL (3.2-5.2); ALKALINE PHOSPHATASE 50 U/L (46-116); ALT/SGPT 18 U/L (7.0-40); AST/SGOT 14 U/L (<34); BILIRUBIN,TOTAL 0.6 MG/DL (0.3-1.2); BLOOD UREA NITROGEN 9 MG/DL (9-23); CALCIUM LEVEL 8.7 MG/DL (8.5-10.1); CARBON DIOXIDE LEVEL 25 MMOL/L (20-31); CHLORIDE LEVEL 107 MMOL/L (98-107); CHOLESTEROL LEVEL 174 MG/DL (<200); CHOLESTEROL RISK RATIO 3.14 (<5); CREATININE FOR GFR 0.89 MG/DL (0.55-1.30); GLOMERULAR FILTRATION RATE > 60.0 (>60); GLUCOSE, FASTING 89 MG/DL (60-100); HDL CHOLESTEROL 55.3 MG/DL (>40); LDL CHOLESTEROL 100.1 MG/DL (<100); NON-HDL-C 118.7 MG/DL; POTASSIUM SERUM 3.9 MMOL/L (3.5-5.1); SODIUM LEVEL 139 MMOL/L (136-145); THYROID STIMULATING HORMONE 2.443 uIU/ML (0.55-4.78); TOTAL PROTEIN 6.5 G/DL (5.7-8.2); TRIGLYCERIDES LEVEL 93 MG/DL (<150)
[2022-09-21 22:03] LABS: LITHIUM LEVEL 0.28 MMOL/L (0.60-1.20)
== END ==
LOC: M WUC 11:07
PROVIDERS: ATTEND Physician Assistant
DX: Z79.899 Other long term (current) drug therapy (principal)

== ENCOUNTER → 2022-12-13 | Outpatient (REF) | payer OTHER, MEDICAID | LOC: M LAB REF 16:35 | PROVIDERS: ATTEND Nurse Practitioner Family | DX: Z01.84 Encounter for antibody response examination (principal); Z75.2 Other waiting period for investigation and treatment ==

== ENCOUNTER → 2023-04-02 | Outpatient (CLI) | payer OTHER, MEDICAID ==
[~2023-04-02] MED LIST changes: +LORA-1041 PO; -LORA-674 PO
[2023-04-02 20:59] LABS: THYROID STIMULATING HORMONE 2.623 uIU/ML (0.55-4.78)
[2023-04-02 21:00] LABS: FREE T4 1.09 NG/DL (0.89-1.76)
== END ==
LOC: M WUC 15:09
PROVIDERS: ATTEND Nurse Practitioner Family
DX: E89.0 Postprocedural hypothyroidism (principal)

== ENCOUNTER → 2023-04-24 | Outpatient (REF) | payer OTHER, MEDICAID ==
[2023-04-24 18:57] LABS: BASO % 0.7 % (0.0-1.0); EOS # 0.2 10^3/uL (0.0-0.5); EOS % 2.5 % (0.0-3.0); HEMATOCRIT 41.1 % (36.0-47.0); HEMOGLOBIN 13.6 g/dl (12.0-15.5); LYMPH # 1.9 10^3/uL (1.5-5.0); LYMPH % 30.8 % (24.0-44.0); MEAN CORPUSCULAR HEMOGLOBIN 30.9 pg (27.0-33.0); MEAN CORPUSCULAR HGB CONC 33.1 g/dl (32.0-36.5); MEAN CORPUSCULAR VOLUME 93.4 fl (80.0-96.0); MONO # 0.4 10^3/uL (0.0-0.8); MONO % 5.7 % (2.0-8.0); NEUTROPHILS # 3.7 10^3/uL (1.5-8.5); PLATELET COUNT, AUTOMATED 256 10^3/uL (150-450); WHITE BLOOD COUNT 6.1 10^3/uL (4.0-10.0)
[2023-04-24 19:25] LABS: ALBUMIN 4.1 G/DL (3.2-5.2); ALKALINE PHOSPHATASE 48 U/L (46-116); ALT/SGPT 17 U/L (7.0-40); AST/SGOT 8 U/L (<34); BILIRUBIN,TOTAL 0.5 MG/DL (0.3-1.2); BLOOD UREA NITROGEN 13 MG/DL (9-23); CALCIUM LEVEL 9.3 MG/DL (8.5-10.1); CARBON DIOXIDE LEVEL 27 MMOL/L (20-31); CHLORIDE LEVEL 107 MMOL/L (98-107); CHOLESTEROL LEVEL 169 MG/DL (<200); CREATININE FOR GFR 0.93 MG/DL (0.55-1.30); GLOMERULAR FILTRATION RATE > 60.0 (>60); GLUCOSE, FASTING 88 MG/DL (60-100); HDL CHOLESTEROL 56.3 MG/DL (>40); LDL CHOLESTEROL 96.7 MG/DL (<100); NON-HDL-C 112.7 MG/DL; POTASSIUM SERUM 4.3 MMOL/L (3.5-5.1); SODIUM LEVEL 140 MMOL/L (136-145); TOTAL PROTEIN 6.8 G/DL (5.7-8.2); TRIGLYCERIDES LEVEL 80 MG/DL (<150)
[2023-04-24 19:27] LABS: THYROID STIMULATING HORMONE 5.534 uIU/ML (0.55-4.78)
[2023-04-24 19:41] LABS: HEMOGLOBIN A1c 4.8 % (4.0-6.0)
== END ==
LOC: M LAB REF 18:27
PROVIDERS: ATTEND Nurse Practitioner Family
DX: R53.83 Other fatigue (principal); E55.9 Vitamin D deficiency, unspecified

== ENCOUNTER → 2023-07-24 | Outpatient (REF) | payer OTHER, MEDICAID ==
[2023-07-24 17:41] LABS: THYROID STIMULATING HORMONE 3.973 uIU/ML (0.55-4.78)
[2023-07-24 17:42] LABS: FREE T4 1.21 NG/DL (0.89-1.76)
== END ==
LOC: M LAB REF 16:13
PROVIDERS: ATTEND Nurse Practitioner Family
DX: E03.9 Hypothyroidism, unspecified (principal)

== ENCOUNTER → 2023-09-27 | Outpatient (REF) | payer OTHER, MEDICAID ==
[2023-09-27 14:43] LABS: BASO % 0.8 % (0.0-1.0); EOS % 0.6 % (0.0-3.0); HEMATOCRIT 41.2 % (36.0-47.0); HEMOGLOBIN 13.5 g/dl (12.0-15.5); LYMPH # 1.5 10^3/uL (1.5-5.0); LYMPH % 30.4 % (24.0-44.0); MEAN CORPUSCULAR HEMOGLOBIN 31.6 pg (27.0-33.0); MEAN CORPUSCULAR HGB CONC 32.8 g/dl (32.0-36.5); MEAN CORPUSCULAR VOLUME 96.5 fl (80.0-96.0); MONO # 0.3 10^3/uL (0.0-0.8); MONO % 6.4 % (2.0-8.0); NEUTROPHILS # 3.1 10^3/uL (1.5-8.5); NEUTROPHILS % 61.4 % (36.0-66.0); PLATELET COUNT, AUTOMATED 261 10^3/uL (150-450); RED BLOOD COUNT 4.27 10^6/uL (4.00-5.40)
[2023-09-27 15:16] LABS: ALBUMIN 3.7 G/DL (3.2-5.2); ALKALINE PHOSPHATASE 44 U/L (46-116); ALT/SGPT 13 U/L (7.0-40); AST/SGOT < 8 U/L (<34); BILIRUBIN,TOTAL 0.6 MG/DL (0.3-1.2); BLOOD UREA NITROGEN 12 MG/DL (9-23); CALCIUM LEVEL 9.3 MG/DL (8.5-10.1); CARBON DIOXIDE LEVEL 26 MMOL/L (20-31); CHLORIDE LEVEL 109 MMOL/L (98-107); CHOLESTEROL LEVEL 173 MG/DL (<200); CHOLESTEROL RISK RATIO 3.39 (<5); CREATININE FOR GFR 0.93 MG/DL (0.55-1.30); GLOMERULAR FILTRATION RATE > 60.0 (>60); GLUCOSE, FASTING 63 MG/DL (60-100); POTASSIUM SERUM 4.7 MMOL/L (3.5-5.1); SODIUM LEVEL 142 MMOL/L (136-145); TOTAL PROTEIN 6.6 G/DL (5.7-8.2); TRIGLYCERIDES LEVEL 75 MG/DL (<150)
[2023-09-27 15:17] LABS: HEMOGLOBIN A1c 4.7 % (4.0-6.0); LITHIUM LEVEL 0.28 MMOL/L (1.0-1.20)
[2023-09-27 15:18] LABS: THYROID STIMULATING HORMONE 5.909 uIU/ML (0.55-4.78)
== END ==
LOC: M LABWUC 12:51
PROVIDERS: ATTEND Physician Assistant
DX: Z79.899 Other long term (current) drug therapy (principal)

== ENCOUNTER → 2023-11-04 | Outpatient (REF) | payer OTHER, MEDICAID ==
[2023-11-04 13:51] LABS: THYROID STIMULATING HORMONE 6.793 uIU/ML (0.55-4.78)
[2023-11-04 13:52] LABS: FREE T4 1.26 NG/DL (0.89-1.76)
[2023-11-04 14:13] LABS: THYROID PEROXIDASE ANTIBODY > 1300.0 U/ML (<60.0)
== END ==
LOC: M LAB REF 11:55
PROVIDERS: ATTEND Nurse Practitioner Family
DX: E03.9 Hypothyroidism, unspecified (principal)

== ENCOUNTER → 2023-12-20 | Outpatient (CLI) | payer OTHER | LOC: M RAD 14:01 | PROVIDERS: ATTEND Nurse Practitioner Family | DX: E03.9 Hypothyroidism, unspecified (principal) ==

== ENCOUNTER → 2024-02-03 | Outpatient (CLI) | payer OTHER ==
[2024-02-03 19:32] LABS: FREE T4 1.26 NG/DL (0.89-1.76)
[2024-02-03 19:33] LABS: THYROID STIMULATING HORMONE 2.711 uIU/ML (0.55-4.78)
== END ==
LOC: M WUC 15:55
PROVIDERS: ATTEND Nurse Practitioner Family
DX: E89.0 Postprocedural hypothyroidism (principal)

== ENCOUNTER → 2024-06-19 | Outpatient (REF) | payer OTHER ==
[2024-06-19 17:47] LABS: FREE T4 1.5 NG/DL (0.89-1.76); THYROID STIMULATING HORMONE 0.828 uIU/ML (0.55-4.78)
== END ==
LOC: M LABWUC 16:31
PROVIDERS: ATTEND Nurse Practitioner Family
DX: E89.0 Postprocedural hypothyroidism (principal)

== ENCOUNTER → 2024-11-18 | Outpatient (REF) | payer OTHER ==
[2024-11-18 18:42] LABS: ALT/SGPT 16.0 U/L (7.0-40); AST/SGOT 16.0 U/L (<34); CALCIUM LEVEL 9.4 MG/DL (8.5-10.1); CARBON DIOXIDE LEVEL 24.0 MMOL/L (20-31); CHLORIDE LEVEL 107.0 MMOL/L (98-107); CHOLESTEROL LEVEL 159.0 MG/DL (<200); CHOLESTEROL RISK RATIO 3.19 (<5); CREATININE FOR GFR 0.85 MG/DL (0.55-1.30); GLOMERULAR FILTRATION RATE 89.3 (>60); LDL CHOLESTEROL 96.0 MG/DL (<100); MAGNESIUM LEVEL 1.8 MG/DL (1.8-2.4); NON-HDL-C 109.2 MG/DL; POTASSIUM SERUM 4.0 MMOL/L (3.5-5.1); SODIUM LEVEL 142.0 MMOL/L (136-145); TRIGLYCERIDES LEVEL 66.0 MG/DL (<150)
[2024-11-18 18:45] LABS: TOTAL 25(OH) VITAMIN D 35.2 NG/ML (20.0-100.0)
[2024-11-18 18:48] LABS: BASO # 0.0 10^3/uL (0.0-0.2); BASO % 0.5 % (0.0-1.0); EOS # 0.0 10^3/uL (0.0-0.5); EOS % 0.0 % (0.0-3.0); LYMPH # 1.3 10^3/uL (1.5-5.0); LYMPH % 17.9 % (24.0-44.0); MONO # 0.3 10^3/uL (0.0-0.8); MONO % 4.4 % (2.0-8.0); NEUTROPHILS # 5.8 10^3/uL (1.5-8.5); NEUTROPHILS % 76.8 % (36.0-66.0); PLATELET COUNT, AUTOMATED 249 10^3/uL (150-450)
== END ==
LOC: M LAB REF 17:57
PROVIDERS: ATTEND Nurse Practitioner Family
DX: E66.3 Overweight (principal); Z13.220 Encounter for screening for lipoid disorders; E55.9 Vitamin D deficiency, unspecified

== ENCOUNTER → 2024-12-14 | Outpatient (CLI) | payer OTHER ==
[2024-12-14 15:07] LABS: BASO # 0.0 10^3/uL (0.0-0.2); BASO % 0.7 % (0.0-1.0); EOS # 0.1 10^3/uL (0.0-0.5); EOS % 2.1 % (0.0-3.0); LYMPH # 1.4 10^3/uL (1.5-5.0); LYMPH % 22.1 % (24.0-44.0); MONO # 0.4 10^3/uL (0.0-0.8); MONO % 6.2 % (2.0-8.0); NEUTROPHILS # 4.2 10^3/uL (1.5-8.5); NEUTROPHILS % 68.6 % (36.0-66.0); PLATELET COUNT, AUTOMATED 231 10^3/uL (150-450)
[2024-12-14 15:39] LABS: ALT/SGPT 15.0 U/L (7.0-40); AST/SGOT 15.0 U/L (<34); CALCIUM LEVEL 9.3 MG/DL (8.5-10.1); CARBON DIOXIDE LEVEL 24.0 MMOL/L (20-31); CHLORIDE LEVEL 107.0 MMOL/L (98-107); CHOLESTEROL LEVEL 153.0 MG/DL (<200); CHOLESTEROL RISK RATIO 3.31 (<5); CREATININE FOR GFR 0.94 MG/DL (0.55-1.30); GLOMERULAR FILTRATION RATE 79.2 (>60); LDL CHOLESTEROL 95.3 MG/DL (<100); NON-HDL-C 106.9 MG/DL; POTASSIUM SERUM 4.5 MMOL/L (3.5-5.1); SODIUM LEVEL 143.0 MMOL/L (136-145); TRIGLYCERIDES LEVEL 58.0 MG/DL (<150)
[2024-12-14 16:02] LABS: ESTIMATED AVERAGE GLUCOSE 91.0 MG/DL (60-110)
[2024-12-14 17:48] LABS: LITHIUM LEVEL 0.31 MMOL/L (1.0-1.20)
== END ==
LOC: M WUC 12:40
PROVIDERS: ATTEND Physician Assistant
DX: Z79.899 Other long term (current) drug therapy (principal)

== ENCOUNTER → 2025-04-22 | Outpatient (REF) | payer OTHER, MEDICAID | LOC: M LAB REF 16:18 | PROVIDERS: ATTEND Nurse Practitioner Family | DX: E03.9 Hypothyroidism, unspecified (principal) ==